=== PATIENT | male | born 1965 | race Caucasian/White ===

== ENCOUNTER 2017-04-16 07:39 | Emergency (ER) | payer OTHER ==
[~2017-04-16] VITALS: Ht 188 cm; Wt 67.0 kg
[2017-04-16 07:42] VITALS: TEMP 37.1; Ht 188 cm; Wt 67.0 kg
[2017-04-16] MEDS ORDERED: BLOOD PRESSURE PO (08:20)
[2017-04-16] MEDS ORDERED: THYROID PO (08:20)
[2017-04-16 08:25] LABS: BASO % 0.3 %; BASO ABS # 0.03 K/uL (0-0.2); EOS % 0.6 %; EOS ABS # 0.07 K/uL (0-0.5); HEMATOCRIT 45.1 % (42-52); HEMOGLOBIN 15.6 g/dL (14.0-18.0); IG# 0.02 K/uL (0.00-0.02); LYMPH % 16.5 %; LYMPH ABS # 1.79 K/uL (1.2-3.4); MEAN CELL VOLUME 100.2 fL (80-100); MEAN CORPUSCULAR HEMOGLOBIN 34.7 pg (25-34); MEAN CORPUSCULAR HGB CONC 34.6 g/dl (32-36); MEAN PLATELET VOLUME 9.9 fL (7.4-10.4); MONO % 10.4 %; MONO ABS # 1.13 K/uL (0.11-0.59); NEUT ABS # 7.83 K/uL (1.4-6.5); PLATELET COUNT 258 K/uL (130-400); RED CELL DISTRIBUTION WIDTH CV 13.1 % (11.5-14.5); RED CELL DISTRIBUTION WIDTH SD 47.7 fL (36.4-46.3); WHITE BLOOD COUNT 10.87 K/uL (4.8-10.8)
[2017-04-16 08:42] LABS: CALCIUM 9.2 mg/dl (8.5-10.1); CREATININE 0.86 mg/dl (0.60-1.40); POTASSIUM 4.2 mmol/L (3.5-5.1); URIC ACID 7.5 mg/dl (2.6-7.2)
--- NOTE | 2017-04-16 08:56 | DIAGNOSTIC IMAGING REPORT ---
L ELBOW MIN 3 VIEWS ROUTINE CLINICAL HISTORY: Left elbow pain with limited range of motion. No known trauma. COMPARISON: None FINDINGS: Alignment of the left elbow is anatomic. No acute fracture is identified. Note is made of a well-corticated 1.8 cm ossicle along the medial aspect of the ulnotrochlear articulation. A few well-corticated ossicles along the lateral condyle measure up to 9 mm. There is no suspicious osseous lesion. The anterior fat pad is prominent and the posterior fat pad is visualized. This suggests a left elbow joint effusion. IMPRESSION: 1. No acute fracture. 2. Suspected left elbow joint effusion. 3. Well-corticated ossicles along the medial and lateral condyles which suggest old injury. Electronically signed by: Juliocesar Ríos M.D. 04/16/2017 8:55 AM Dictated Date/Time: 04/16/2017 8:52 AM
[2017-04-16] MEDS ORDERED: PRED50TA PO (10:10)
[2017-04-16] MEDS ORDERED: CEPH500C PO (10:10)
[2017-04-16 10:15] VITALS: BP 133/72; PULSE 72; O2SAT 100
--- NOTE | 2017-04-16 10:18 | EMERGENCY ROOM VISIT NOTE ---
ED Visit Note First contact with patient: 07:43 The patient was seen and examined with Gerald Dennis PA-c. I agree with the history, physical and findings. Please see the note for disposition and details.
--- NOTE | 2017-04-16 17:22 | EMERGENCY ROOM VISIT NOTE ---
History First contact with patient: 07:43 Chief Complaint: ELBOW PAIN/INJURY Stated Complaint: PAIN IN ELBOW History of Present Illness The patient is a 51 year old male who presents to the Emergency Room with complaints of approximately 24 hours of increasing left elbow pain and limited range of motion. The patient reports that he noticed discomfort and stiffness yesterday morning upon awakening. He thought that he slept wrong on his elbow. The patient reports that the pain and limited range of motion have progressively worsened. The patient denies any recent injury to the elbow. He does report a history of left elbow dislocation approximately 40 years ago, but has had no history of chronic pain or weakness of the elbow. He denies any recent infection, fevers or chills. He denies any prior history of gout. He denies any pain extending into the upper or lower arm. He denies any paresthesias or numbness. The patient is [id number], and currently rates his discomfort a 5 out of 10. The patient is [id number]. Review of Systems HEENT: Denies dizziness, visual problems, hearing loss, tinnitus. Denies difficulty swallowing or oral lesions. PULMONARY: Denies cough, shortness of breath, sputum production or hemoptysis. CARDIOVASCULAR: Denies chest pain, palpitations, dyspnea on exertion, orthopnea or peripheral edema. GASTROINTESTINAL: Denies diarrhea, constipation, nausea, vomiting, or abdominal pain. GENITOURINARY: Denies dysuria, frequency, urgency or nocturia. NEUROLOGIC: Denies history of epilepsy, CVA, TIA or chronic headaches. MUSCULOSKELETAL: Denies history of joint tenderness/swelling. SKIN: Denies rashes or lesions. PSYCHIATRIC: Denies history of depression or mental illness. ENDOCRINE: Denies history of diabetes or thyroid disorders. Past Medical/Surgical History Medical Problems: (1) Diaphragmatic Hernia (2) Esophagitis Nos (3) Tobacco Use Disorder Family History Unremarkable Social History Smoking Status: Current Every Day Smoker Alcohol Use: none Marital Status: single Occupation Status: employed Current/Historical Medications Scheduled Cephalexin Monohydrate (Keflex), 500 MG PO QID Prednisone (Prednisone), 50 MG PO DAILY [Blood Pressure], 1 TAB PO DAILY [Thyroid], 1 TAB PO DAILY Physical Exam Vital Signs Date Time Temp Pulse Resp B/P (MAP) Pulse Ox O2 Delivery O2 Flow Rate FiO2 04/16/17 10:15 72 18 133/72 100 04/16/17 09:00 73 18 137/75 99 Room Air 04/16/17 07:42 37.1 92 18 161/84 97 Room Air Physical Exam CONSTITUTIONAL: Healthy and well nourished. Alert and oriented X 3 with positive affect. Patient does not appear in any acute distress. HEENT: Normocephalic, atraumatic. Pupils equal, round and reactive. NECK: Full active range of motion without discomfort. RESPIRATORY: Clear to auscultation bilaterally with no wheezing, crackles, rhonchi or stridor. CARDIOVASCULAR: Regular rate and rhythm with no murmurs, rubs or gallops. GASTROINTESTINAL: Bowel sounds present in all quadrants. Soft and nontender to palpation. MUSCULOSKELETAL: Examination of the left elbow shows limited range of motion. A mild joint effusion is noted. There is no overriding erythema or increased warmth to palpation. Distal pulses are intact. INTEGUMENTARY: No rash or other significant dermatologic conditions noted. NEUROLOGIC: No focal neurologic deficits noted. Left hand and fingers are sensory intact. Medical Decision & Procedures ER Provider Diagnostic Interpretation: My interpretation of left elbow x-ray shows a joint effusion, otherwise no other acute fractures, dislocation or other concerning lesions. Chronic changes are noted. Radiologist report is as follows: L ELBOW MIN 3 VIEWS ROUTINE CLINICAL HISTORY: Left elbow pain with limited range of motion. No known trauma. COMPARISON: None FINDINGS: Alignment of the left elbow is anatomic. No acute fracture is identified. Note is made of a well-corticated 1.8 cm ossicle along the medial aspect of the ulnotrochlear articulation. A few well-corticated ossicles along the lateral condyle measure up to 9 mm. There is no suspicious osseous lesion. The anterior fat pad is prominent and the posterior fat pad is visualized. This suggests a left elbow joint effusion. IMPRESSION: 1. No acute fracture. 2. Suspected left elbow joint effusion. 3. Well-corticated ossicles along the medial and lateral condyles which suggest old injury. Laboratory Results 04/16/17 08:10 Red Blood Count 4.50, Mean Corpuscular Volume 100.2, Mean Corpuscular Hemoglobin 34.7, Mean Corpuscular Hemoglobin Concent 34.6, Mean Platelet Volume 9.9, Neutrophils (%) (Auto) 72.0, Lymphocytes (%) (Auto) 16.5, Monocytes (%) ( Auto) 10.4, Eosinophils (%) (Auto) 0.6, Basophils (%) (Auto) 0.3, Neutrophils # (Auto) 7.83, Lymphocytes # (Auto) 1.79, Monocytes # (Auto) 1.13, Eosinophils # ( Auto) 0.07, Basophils # (Auto) 0.03 04/16/17 08:10 Test 04/16/17 08:10 04/16/17 08:12 White Blood Count 10.87 K/uL (4.8-10.8) Red Blood Count 4.50 M/uL (4.7-6.1) Hemoglobin 15.6 g/dL (14.0-18.0) Hematocrit 45.1 % (42-52) Mean Corpuscular Volume 100.2 fL (80-100) Mean Corpuscular Hemoglobin 34.7 pg (25-34) Mean Corpuscular Hemoglobin Concent 34.6 g/dl (32-36) Platelet Count 258 K/uL (130-400) Mean Platelet Volume 9.9 fL (7.4-10.4) Neutrophils (%) (Auto) 72.0 % Lymphocytes (%) (Auto) 16.5 % Monocytes (%) (Auto) 10.4 % Eosinophils (%) (Auto) 0.6 % Basophils (%) (Auto) 0.3 % Neutrophils # (Auto) 7.83 K/uL (1.4-6.5) Lymphocytes # (Auto) 1.79 K/uL (1.2-3.4) Monocytes # (Auto) 1.13 K/uL (0.11-0.59) Eosinophils # (Auto) 0.07 K/uL (0-0.5) Basophils # (Auto) 0.03 K/uL (0-0.2) RDW Standard Deviation 47.7 fL (36.4-46.3) RDW Coefficient of Variation 13.1 % (11.5-14.5) Immature Granulocyte % (Auto) 0.2 % Immature Granulocyte # (Auto) 0.02 K/uL (0.00-0.02) Erythrocyte Sedimentation Rate 16 mm/hr (0-14) Anion Gap 8.0 mmol/L (3-11) Est Creatinine Clear Calc Drug Dose 95.2 ml/min Estimated GFR () 115.6 Estimated GFR (Non- 99.7 BUN/Creatinine Ratio 8.9 (10-20) Uric Acid 7.5 mg/dl (2.6-7.2) Calcium Level 9.2 mg/dl (8.5-10.1) C-Reactive Protein 1.57 mg/dl (0-0.29) Lyme Disease IgG Antibody NEG (NEG) Lyme Disease IgM Antibody NEG (NEG) Bedside Lactic Acid Venous 0.82 mmol/L (0.90-1.70) The above labs were reviewed. Sedimentation rate, CRP and uric acid level are elevated. Patient also has a mildly elevated white count. Lyme screen is negative. ED Course Patient history and physical exam were performed. Nurse's notes were reviewed. Vital signs were reviewed and were normal. Several different differentials were discussed with the patient, including labs arthritis, gout, septic arthritis, joint derangement or other acute processes. I did suggest performing some lab work and imaging studies. The patient was in agreement, but quite impatient. IV access was established, and labs were drawn. Review of labs shows an elevated CRP, sedimentation rate and uric acid level, concerning for acute gout. White count is also mildly elevated, concerning for possible infection. It is again noted that there is no overriding erythema or increased warmth to palpation of the elbow. X-rays shows degenerative changes without any obvious fractures or dislocation. The case was discussed further with Dr. Mesa, ED attending physician, who also evaluated the patient, and suggested coverage with corticosteroids and antibiotics. The patient was provided prescriptions for prednisone and Keflex. The patient was instructed to follow-up with orthopedics for further reevaluation and management. The patient reported that he will call orthopedics for an appointment after refusing assistance today to establish an appointment. He was instructed to return for any progressively worsening pain, developing fever or other concerning symptoms. He was encouraged to alternate ibuprofen and Tylenol as needed for pain relief. The patient voiced understanding of all discharge instructions, was happy with plan of care, and rated his discomfort a 4 out of 10 at the conclusion of my exam. Medical Decision See previous section Medication Reconcilliation Current Medication List: was personally reviewed by me Blood Pressure Screening Patient's blood pressure: Normal blood pressure Impression Primary Impression: Effusion, left elbow Departure Information Prescriptions Prednisone (Prednisone) 50 Mg Tab 50 MG PO DAILY for 4 Days, #4 TAB Prov: Gerald Dennis PA 04/16/17 Cephalexin Monohydrate (Keflex) 500 Mg Cap 500 MG PO QID for 7 Days, #28 CAP Prov: Gerald Dennis PA 04/16/17 Referrals No Doctor, Assigned (PCP) Patient Instructions [facility]
== END 2017-04-16 10:09 | disposition home or self-care (01) ==
LOC: C.EDB 07:41 → C.EDA 10:09
DX: M25.422 Effusion, left elbow (principal); Z79.899 Other long term (current) drug therapy; Z87.19 Personal history of other diseases of the digestive system; Z87.828 Personal history of other (healed) physical injury and trauma; F17.200 Nicotine dependence, unspecified, uncomplicated

== ENCOUNTER 2021-12-21 09:12 | Inpatient (IN) ==
[2021-12-21 10:04] LABS: Basophils # (auto) 0.07 K/uL (0-0.2); Eosinophils # (auto) 0.04 K/uL (0-0.50); Eosinophils % (auto) 0.5 %; Hematocrit (blood only) 34.5 % (40.1-51.0); Immature Granulocytes # (auto) 0.03 K/uL (0.00-0.02); Immature Granulocytes % (auto) 0.4 %; Lymphocytes % (auto) 15.1 %; Mean Corpuscular Hgb Conc 34.8 g/dL (32.0-36.0); Mean Corpuscular Volume 97.7 fL (80.0-100.0); Mean Platelet Volume 10.2 fL (9.4-12.4); Monocytes # (auto) 0.96 K/uL (0.24-0.82); Monocytes % (auto) 13.2 %; Neutrophils % (auto) 69.8 %; Platelet Count 255 K/uL (130-400); RDW Coefficient of Variation 12.2 % (11.5-14.5); RDW Standard Deviation 43.5 fL (36.4-46.3); Red Blood Count 3.53 M/uL (4.63-6.08)
--- NOTE | 2021-12-21 10:24 | Emergency Department Note ---
Impression & Plan Cellulitis of right lower extremity ED Provider Note CHIEF COMPLAINT: Right foot/ankle/knee pain HISTORY OF PRESENT ILLNESS: Wiley Reyes is a 56 year old male with history of HTN, hypothyroidism, OA and tobacco use who presents to the Emergency Department for evaluation of increased pain with redness and swelling to his right foot radiating into his ankle and farr which has become progressively worse over the past 4 days. He also notes pain in his posterior right knee which worsens with flexion. Currently, he rates his discomfort as an 8/10. He has not attempted to take any medications for his discomfort. The patient denies suffering recent falls or injuries prior to the onset of his symptoms. No known wounds or insect bites. The patient does also note development of a petechial rash to his bilateral thighs a few weeks ago. No pain or itchiness. No rash anywhere else about his body. No other joint pain, redness/swelling. No numbness/tingling. He otherwise denies recent fevers/chills, sore throat, cough, chest pain, respiratory difficulties, abdominal pain, nausea, vomiting, diarrhea or urinary symptoms. The patient does note previous history of an "elbow infection" for which he was treated with oral antibiotics several years ago. No history of blood clots/clotting disorders. No use of AC/APs. No other acute complaints. REVIEW OF SYSTEMS: 10 systems were reviewed and were negative unless otherwise stated in HPI as above PHYSICAL EXAM: VITALS: Vitals are noted on the nurse's note and reviewed by myself. Mildly tachycardic, additional vital signs stable. General: Resting in bed, no acute distress HEENT: Normocephalic, atraumatic, PERRL, EOMI, poor dentition with several missing teeth/caries, mucous membranes moist, oropharynx clear Neck: Supple, non-tender Resp: Good inspiratory effort on room air, lung sounds clear bilaterally CV: Regular rate and rhythm, normal S1-S2, peripheral pulses palpated Abd: Soft, non-tender MSK/Integumentary: Nonblanchable petechial rash to the bilateral thighs. Erythema and edema to the right medial and lateral foot extending into the bilateral ankle and farr, warm and tender to palpation. Not able to palpate d/p pulse, p/t pulse palpated. Sensation intact. Able to move the toes and ankle, though notes pain. Tender to palpation over the right popliteal space and notes exacerbation of pain with flexion of the knee. No specific tenderness to palpation over the right hip or thigh. No other appreciable wounds, moving all other extremities without significant pain or difficulty Neuro: Awake, alert and oriented x 3, interacting and answering questions appropriately Differential diagnosis includes cellulitis, abscess, MRSA infection, DVT, necrotizing fasciitis, dermatitis, drug eruption, allergic reaction, as well as other pathologies. EMERGENCY DEPARTMENT COURSE: Physical exam and history were performed. Nursing triage notes, EMR, and medication list were personally reviewed. Patient appears to have increased pain with redness and swelling to his right foot radiating into his ankle and farr which has become progressively worse over the past 4 days. He also notes pain in his posterior right knee which worsens with flexion. Additional history as described above. See physical exam as noted above. The patient was offered pain medication on multiple occasions but declined. IV access was established. Labs were obtained and reviewed by myself as below. Of note, no concern for leukocytosis with a WBC of 7.30. Anemia with hemoglobin 12.0. Mild hyponatremia with a sodium of 131, additional electrolytes WNL. Renal indices stable. LFTs WNL. ESR was elevated at 59, CRP was elevated at 10.21 and lactate was elevated at 2.6. Procalcitonin not elevated at 0.10. Given the patient's elevated lactate, he was started on 1 L NSS. Continue to decline pain medication. Artery duplex and venous Doppler scans of the right lower extremity were obtained, reviewed by radiologist myself as below. Imaging did represent peripheral artery disease, otherwise no occlusions or DVT. X-rays of the right knee and right ankle were also obtained, reviewed by radiologist myself as below. Images did show soft tissue swelling and a small right knee joint effusion, otherwise no acute osseous abnormality. Upon reevaluation, the patient was doing well. I discussed the results the above findings with him at bedside. Given his exam findings and elevated inflammatory markers as well as his elevated lactate, I do feel that he will benefit from continued monitoring in the hospital for IV antibiotics given his right lower extremity cellulitis. He was started on daptomycin and Zosyn. I did call and speak with Ashley Scott PA-C of the [facility] hospitalist group. She did agreed to evaluate the patient with Dr. Pulido for ongoing management. Please see their documentation for additional plan and disposition thereafter. The patient verbalized his understanding and agreement with the treatment plan as above. The chart was completed utilizing [employer] Voice Recognition Software. Grammatical errors, random word insertions, pronoun errors, and incomplete sentences are an occasional consequence of this system due to software limitations, ambient noise, and hardware issues. Any formal questions or concerns about the content, text, or information contained within the body of this dictation should be directly addressed to the provider for clarification. Past Med/Surg History Medical History (Updated 12/21/21 @ 15:50 by Celi Garland PA-C) Alcohol use HTN (hypertension) Hypothyroidism Left inguinal hernia Osteoarthritis Tobacco use Vitamin D deficiency Surgical History (Updated 12/21/21 @ 14:03 by Cony Scott PA-C) H/O left inguinal hernia repair History of tooth extraction S/P left inguinal hernia repair Family History (Updated 12/21/21 @ 14:03 by Cony Scott PA-C) Father Myocardial infarction Coronary heart disease Mother No problems noted. Sister No problems noted. Grandmother (Maternal) Diabetes Social History (Updated 12/21/21 @ 14:05 by Cony Scott PA-C) Smoking Status: Current every day smoker Cigarettes Per Day: 3-4 CIG DAILY; Second Hand Exposure: No; Hx Alcohol Use: Yes (3 beers daily) Alcohol type: beer Hx Substance Use: No Preferred Language: German Communication Ability: Effective Sales Support Technician Required: No Beliefs That Will Affect Care: None Current Living Situation: Alone Feels Safe at Home: Yes Assistive Devices: None Allergies Allergies Allergy/AdvReac Type Severity Reaction Status Date / Time No Known Allergies Allergy Verified 12/21/21 13:04 Home Meds Home Medications Medication Instructions Recorded Confirmed levothyroxine 50 mcg tablet 50 mcg PO QAM 11/27/17 12/21/21 losartan 25 mg tablet 25 mg PO HS 11/27/17 12/21/21 Results & Data (ED) Vital Signs Vital Signs - 24 hr 12/21/21 09:22 12/21/21 13:48 Temperature 36.3 C L Temperature Source Temporal Artery Scan Pulse Rate 110 H Respiratory Rate 20 14 Respiratory Effort / Characteristics Non-Labored Spontaneous Non-Labored Respiratory Depth Normal Normal Respiratory Pattern Regular Blood Pressure 134/82 Blood Pressure [Right Arm] 144/74 H Blood Pressure Mean 99 Blood Pressure Mean [Right Arm] 97 Pulse Oximetry 100 94 Oxygen Delivery Method Room Air Room Air Sepsis Recent Fever Within 48 Hours No Sepsis New/Unexplained Change in Mental Status No Sepsis Action Taken by Nursing No Action Required Laboratory Data Result diagrams: 12/21/21 09:50 12/21/21 09:50 Lab Results 12/21/21 12/21/21 12/21/21 Range/Units 09:50 09:50 09:50 WBC 7.30 (4.8-10.8) K/ul RBC 3.53 L (4.63-6.08) M/uL Hgb 12.0 L (14.0-18.0) g/dl Hct 34.5 L (40.1-51.0) % MCV 97.7 (80.0-100.0) fL MCH 34.0 (25.0-34.0) pg MCHC 34.8 (32.0-36.0) g/dL RDW Std Deviation 43.5 (36.4-46.3) fL RDW Coeff of Cordell 12.2 (11.5-14.5) % Plt Count 255 (130-400) K/uL MPV 10.2 (9.4-12.4) fL Immature Gran % (Auto) 0.4 % Neut % (Auto) 69.8 % Lymph % (Auto) 15.1 % [place] % (Auto) 13.2 % Eos % (Auto) 0.5 % Baso % (Auto) 1.0 % Neut # (Auto) 5.10 (1.4-6.5) K/uL Lymph # (Auto) 1.10 L (1.2-3.4) K/uL [place] # (Auto) 0.96 H (0.24-0.82) K/uL Eos # (Auto) 0.04 (0-0.50) K/uL Baso # (Auto) 0.07 (0-0.2) K/uL Immature Gran # (Auto) 0.03 H (0.00-0.02) K/uL ESR 59 H (0-20) mm/hr Sodium 131 L (136-145) mmol/L Potassium 4.1 (3.5-5.1) mmol/L Chloride 100 (98-107) mmol/L Carbon Dioxide 20 L (21-32) mmol/L Anion Gap 11 (3-11) BUN 10 (6-23) mg/dl Creatinine 0.99 (0.6-1.4) mg/dl Est Cr Clr Drug Dosing 70.6 ml/min Est GFR ( Amer) 97.6 ml/min Est GFR (Non-Af Amer) 84.2 ml/min BUN/Creatinine Ratio 10.1 (10-20) Glucose 118 H (70-99(Fasting)) mg/dl Lactate (0.4-2.0) mmol/L Calcium 9.4 (8.5-10.1) mg/dl Total Bilirubin 2.0 H (0.2-1.0) mg/dl AST 22 (13-39) U/L ALT 11 (7-52) U/L Alkaline Phosphatase 56 (34-104) U/L C-Reactive Protein 10.21 H (0-0.5) mg/dl Total Protein 7.8 (6.0-8.3) gm/dl Albumin 3.5 (3.4-5.0) gm/dl Globulin 4.3 H (2.5-4.0) gm/dl Albumin/Globulin Ratio 0.8 L (0.9-2) Procalcitonin (0-0.5) ng/ml SARS-CoV-2, RNA, NAAT (NEGATIVE) 12/21/21 12/21/21 12/21/21 Range/Units 09:50 09:50 13:42 WBC (4.8-10.8) K/ul RBC (4.63-6.08) M/uL Hgb (14.0-18.0) g/dl Hct (40.1-51.0) % MCV (80.0-100.0) fL MCH (25.0-34.0) pg MCHC (32.0-36.0) g/dL RDW Std Deviation (36.4-46.3) fL RDW Coeff of Cordell (11.5-14.5) % Plt Count (130-400) K/uL MPV (9.4-12.4) fL Immature Gran % (Auto) % Neut % (Auto) % Lymph % (Auto) % [place] % (Auto) % Eos % (Auto) % Baso % (Auto) % Neut # (Auto) (1.4-6.5) K/uL Lymph # (Auto) (1.2-3.4) K/uL [place] # (Auto) (0.24-0.82) K/uL Eos # (Auto) (0-0.50) K/uL Baso # (Auto) (0-0.2) K/uL Immature Gran # (Auto) (0.00-0.02) K/uL ESR (0-20) mm/hr Sodium (136-145) mmol/L Potassium (3.5-5.1) mmol/L Chloride (98-107) mmol/L Carbon Dioxide (21-32) mmol/L Anion Gap (3-11) BUN (6-23) mg/dl Creatinine (0.6-1.4) mg/dl Est Cr Clr Drug Dosing ml/min Est GFR ( Amer) ml/min Est GFR (Non-Af Amer) ml/min BUN/Creatinine Ratio (10-20) Glucose (70-99(Fasting)) mg/dl Lactate 2.6 H* (0.4-2.0) mmol/L Calcium (8.5-10.1) mg/dl Total Bilirubin (0.2-1.0) mg/dl AST (13-39) U/L ALT (7-52) U/L Alkaline Phosphatase (34-104) U/L C-Reactive Protein (0-0.5) mg/dl Total Protein (6.0-8.3) gm/dl Albumin (3.4-5.0) gm/dl Globulin (2.5-4.0) gm/dl Albumin/Globulin Ratio (0.9-2) Procalcitonin 0.10 (0-0.5) ng/ml SARS-CoV-2, RNA, NAAT NEGATIVE (NEGATIVE) 12/21/21 Range/Units 14:38 WBC (4.8-10.8) K/ul RBC (4.63-6.08) M/uL Hgb (14.0-18.0) g/dl Hct (40.1-51.0) % MCV (80.0-100.0) fL MCH (25.0-34.0) pg MCHC (32.0-36.0) g/dL RDW Std Deviation (36.4-46.3) fL RDW Coeff of Cordell (11.5-14.5) % Plt Count (130-400) K/uL MPV (9.4-12.4) fL Immature Gran % (Auto) % Neut % (Auto) % Lymph % (Auto) % [place] % (Auto) % Eos % (Auto) % Baso % (Auto) % Neut # (Auto) (1.4-6.5) K/uL Lymph # (Auto) (1.2-3.4) K/uL [place] # (Auto) (0.24-0.82) K/uL Eos # (Auto) (0-0.50) K/uL Baso # (Auto) (0-0.2) K/uL Immature Gran # (Auto) (0.00-0.02) K/uL ESR (0-20) mm/hr Sodium (136-145) mmol/L Potassium (3.5-5.1) mmol/L Chloride (98-107) mmol/L Carbon Dioxide (21-32) mmol/L Anion Gap (3-11) BUN (6-23) mg/dl Creatinine (0.6-1.4) mg/dl Est Cr Clr Drug Dosing ml/min Est GFR ( Amer) ml/min Est GFR (Non-Af Amer) ml/min BUN/Creatinine Ratio (10-20) Glucose (70-99(Fasting)) mg/dl Lactate 1.1 (0.4-2.0) mmol/L Calcium (8.5-10.1) mg/dl Total Bilirubin (0.2-1.0) mg/dl AST (13-39) U/L ALT (7-52) U/L Alkaline Phosphatase (34-104) U/L C-Reactive Protein (0-0.5) mg/dl Total Protein (6.0-8.3) gm/dl Albumin (3.4-5.0) gm/dl Globulin (2.5-4.0) gm/dl Albumin/Globulin Ratio (0.9-2) Procalcitonin (0-0.5) ng/ml SARS-CoV-2, RNA, NAAT (NEGATIVE) Administered Medications Daptomycin 350 mg/ Syringe 7 mls @ 3.5 mls/min IV Q24H GAIL; Protocol Stop: 12/23/21 12:44 Last Admin: 12/21/21 13:21 Dose: 3.5 mls/min Documented By: GRIFFIN Discontinued Medications Sodium Chloride (Nss 1000ml) 1,000 mls @ 999 mls/hr IV .Q1H1M GAIL Stop: 12/21/21 12:29 Last Infusion: 12/21/21 13:21 Dose: 0 mls/hr Documented By: Admin: 12/21/21 12:14 Dose: 999 mls/hr Documented By: GRIFFIN Piperacillin Sod/Tazobactam Sod (Zosyn) 4.5 gm in 120 mls @ 240 mls/hr IV NOW ONE Stop: 12/21/21 13:02 Last Infusion: 12/21/21 13:21 Dose: 0 mls/hr Documented By: Admin: 12/21/21 13:00 Dose: 240 mls/hr Documented By: GRIFFIN Imaging Data Radiologist's Impression: Venous Doppler Study 12/21/21 09:40 RIGHT LOWER EXTREMITY VENOUS DOPPLER CLINICAL HISTORY: Right lower extremity pain. COMPARISON STUDY: No previous studies for comparison. TECHNIQUE: Sonography of the deep venous system of the right lower extremity was performed. Compression and augmentation were evaluated. FINDINGS: The right common femoral, superficial femoral and popliteal veins were compressible. Augmentation was normal. Flow was shown within the deep calf vessels. IMPRESSION: No evidence of deep venous thrombus within the right lower extremity. ACT 112: Negative or not required by law. Electronically signed by: Juliocesar Ríos M.D. 12/21/2021 11:33 AM Duplex Scan Lower Extremity Artery 12/21/21 10:06 US arterial duplex LE RT CLINICAL HISTORY: rash, redness/swelling TECHNIQUE: Real-time grayscale and color and spectral Doppler ultrasound imaging of the bilateral lower extremity arteries was performed. Measurements calculated based on NASCET criteria. COMPARISON: None available at the time of this dictation. FINDINGS: RIGHT: Common femoral artery: Triphasic waveforms. Peak systolic velocity (PSV) 157 cm/ s. Deep femoral artery: Monophasic waveforms. PSV 127 cm/s. Superficial femoral artery: Monophasic waveforms. PSV 204 cm/s. Popliteal artery: Monophasic and triphasic waveforms PSV 142 cm/s. Anterior tibial artery: Monophasic waveforms. PSV 85 cm/s. Posterior tibial artery: Monophasic waveforms. PSV 116 cm/s. Peroneal artery: Monophasic waveforms. PSV 108 cm/s. Dorsalis pedis: Monophasic and biphasic waveforms PSV 41 cm/s. IMPRESSION: Monophasic but brisk waveforms in the lower extremity without significantly elevated or diminished velocities. Findings may represent mild peripheral arterial disease. ACT 112: Negative or not required by law. Electronically signed by: Jacinto Rick M.D. 12/21/2021 11:36 AM Ankle X-Ray 12/21/21 10:07 XR ankle RT min 3V routine HISTORY: 56 years-old Male pain, redness/swelling, r/o osteo acute pain and swelling of the right ankle COMPARISON: None TECHNIQUE: 3 views of the right ankle FINDINGS: Mildly demineralized appearance the bones. Mild to moderate circumferential soft tissue swelling. No acute fracture, dislocation, osseous erosion or osteochondral defect. Mild osteoarthritis of the ankle. IMPRESSION: Soft tissue swelling without acute osseous abnormality. ACT 112: Negative or not required by law. The above report was generated using voice recognition software. It may contain grammatical, syntax or spelling errors. Electronically signed by: Daniel Fontanez M.D. 12/21/2021 11:45 AM Knee X-Ray 12/21/21 10:07 XR knee RT 3V CLINICAL HISTORY: Right knee pain. COMPARISON: None FINDINGS: Alignment of the right knee is anatomic. There is no acute fracture. A 2.5 cm bony excrescence arising from the medial proximal shaft of the right fibula has benign imaging characteristics. There is a trace joint effusion. Joint spaces are preserved. Mild knee soft tissue swelling is present. IMPRESSION: 1. No acute fracture. 2. Trace joint effusion. ACT 112: Negative or not required by law. Electronically signed by: Juliocesar Ríos M.D. 12/21/2021 11:37 AM Discharge Plan Visit Data Chief Complaint: Knee Injury/Pain Stated Complaint: Can't bend r knee, r foot swollen and painful ED Provider: [facility] Midlevel Provider: Celi Garland Discharge Problem: Cellulitis of right lower extremity Patient Disposition: Admitted As Inpatient Forms Stand Alone Forms: [facility] Prescriptions Prescriptions: No Action levothyroxine 50 mcg Tablet 50 mcg PO QAM losartan 25 mg Tablet 25 mg PO HS Referrals Referrals: Navid Bales DO [Physician] -
[2021-12-21 10:26] LABS: Albumin Globulin Ratio 0.8 (0.9-2); Albumin Level 3.5 gm/dl (3.4-5.0); BUN Creatinine Ratio 10.1 (10-20); C Reactive Protein 10.21 mg/dl (0-0.5); Calcium 9.4 mg/dl (8.5-10.1); Creatinine Clr Calc Pharmacy 70.6 ml/min; Est GFR (African American) 97.6 ml/min; Est GFR (Non-African American) 84.2 ml/min; Globulin 4.3 gm/dl (2.5-4.0); Potassium 4.1 mmol/L (3.5-5.1); Total Protein 7.8 gm/dl (6.0-8.3)
[2021-12-21] MEDS ORDERED: SODIUM CHLORIDE 0.9% 1000ML 1,000 ML IV SCH ×2 (11:29→17:57)
--- NOTE | 2021-12-21 11:35 | Ultrasound Report ---
RIGHT LOWER EXTREMITY VENOUS DOPPLER CLINICAL HISTORY: Right lower extremity pain. COMPARISON STUDY: No previous studies for comparison. TECHNIQUE: Sonography of the deep venous system of the right lower extremity was performed. Compress ion and augmentation were evaluated. FINDINGS: The right common femoral, superficial femoral and popliteal veins were compressible. Augme ntation was normal. Flow was shown within the deep calf vessels. IMPRESSION: No evidence of deep venous thrombus within the right lower extremity. ACT 112: Negative or not required by law. Electronically signed by: Juliocesar Ríos M.D. 12/21/2021 11:33 AM
--- NOTE | 2021-12-21 11:37 | Ultrasound Report ---
US arterial duplex LE RT CLINICAL HISTORY: rash, redness/swelling TECHNIQUE: Real-time grayscale and color and spectral Doppler ultrasound imaging of the bilateral low er extremity arteries was performed. Measurements calculated based on NASCET criteria. COMPARISON: None available at the time of this dictation. FINDINGS: RIGHT: Common femoral artery: Triphasic waveforms. Peak systolic velocity (PSV) 157 cm/s. Deep femoral artery: Monophasic waveforms. PSV 127 cm/s. Superficial femoral artery: Monophasic waveforms. PSV 204 cm/s. Popliteal artery: Monophasic and triphasic waveforms PSV 142 cm/s. Anterior tibial artery: Monophasic waveforms. PSV 85 cm/s. Posterior tibial artery: Monophasic waveforms. PSV 116 cm/s. Peroneal artery: Monophasic waveforms. PSV 108 cm/s. Dorsalis pedis: Monophasic and biphasic waveforms PSV 41 cm/s. IMPRESSION: Monophasic but brisk waveforms in the lower extremity without significantly elevated or diminished ve locities. Findings may represent mild peripheral arterial disease. ACT 112: Negative or not required by law. Electronically signed by: Jacinto Rick M.D. 12/21/2021 11:36 AM
--- NOTE | 2021-12-21 11:39 | XRay Report ---
XR knee RT 3V CLINICAL HISTORY: Right knee pain. COMPARISON: None FINDINGS: Alignment of the right knee is anatomic. There is no acute fracture. A 2.5 cm bony excresc ence arising from the medial proximal shaft of the right fibula has benign imaging characteristics. T here is a trace joint effusion. Joint spaces are preserved. Mild knee soft tissue swelling is present . IMPRESSION: 1. No acute fracture. 2. Trace joint effusion. ACT 112: Negative or not required by law. Electronically signed by: Juliocesar Ríos M.D. 12/21/2021 11:37 AM
--- NOTE | 2021-12-21 11:46 | XRay Report ---
XR ankle RT min 3V routine HISTORY: 56 years-old Male pain, redness/swelling, r/o osteo acute pain and swelling of the right an kle COMPARISON: None TECHNIQUE: 3 views of the right ankle FINDINGS: Mildly demineralized appearance the bones. Mild to moderate circumferential soft tissue swelling. No acute fracture, dislocation, osseous erosion or osteochondral defect. Mild osteoarthritis of the ankl e. IMPRESSION: Soft tissue swelling without acute osseous abnormality. ACT 112: Negative or not required by law. The above report was generated using voice recognition software. It may contain grammatical, syntax o r spelling errors. Electronically signed by: Daniel Fontanez M.D. 12/21/2021 11:45 AM
[2021-12-21] MEDS ORDERED: PIPERACILLIN/TAZOBACTAM 4.5 GM/120 ML BAG IV ONE (12:33)
[2021-12-21] MEDS ORDERED: DAPTOmycin 350 MG in SYRINGE 0 ML IV SCH (12:45)
--- NOTE | 2021-12-21 13:16 | History & Physical Report ---
Date of Service December 21, 2021 Assessment & Plan (1) Cellulitis of foot, right: Plan: Patient is 56 y/o M with PMH HTN, hypothyroidism presented to ER with c/o right foot erythema x 3 days followed by worsening erythema, edema and tenderness. Denies fever/chills, known injury/trauma. In ER patient afebrile, initially P: 110, BP: 134/82, R: 20, 100% on RA. No leukocytosis. Initial lactate: 2.6, procalcitonin: 0.10, CRP: 10, ESR: 59 Right ankle x-ray: Soft tissue swelling without acute osseous abnormal RLE Venous Doppler: No evidence of DVT RLE Arterial Doppler: Monophasic but brisk waveforms in the lower extremity without significantly elevated or diminished velocities. Findings may represent mild peripheral arterial disease In ER given 1L NSS, Zosyn, Daptomycin Blood cultures pending Repeat lactate pending Repeat vitals after IVF with HR in 80's, SBP 144 Continue Zosyn and daptomycin Gentle IVF CBC, CMP in am (2) Rash: Plan: Rash reported anterior thighs for 1 week, non tender, nonpruritic Plt WNL Appears petechial like rash Picture taken in [place] Text and sent to Dr Tillman, [facility] dermatology who will assist in further recommendations (3) Anemia: Plan: Hgb: 12. Was 13.6 in 09/2020. normocytic, normochromic Anemia labs pending (4) HTN (hypertension): Plan: Stable Continue losartan (5) Hypothyroidism: Plan: Continue levothyroxine (6) Alcohol use: Plan: Drinks 3 beers daily. Denies history withdrawal Monitor for withdrawal symptoms Start folic acid, thiamine, multivitamin (7) Low BMI: Plan: BMI: 16.7 Patient reports eats two meals a day Outpatient PCP noted reviewed from 08/14 and BMI 17.9 with weight of 63.5kg, height of 6'2". Pt offered nutrition referral but was not interested PSA in 08/[address] chest or colonoscopy noted in outpatient records Pt will need outpatient cancer screenings General Intern consult (8) Tobacco use: Plan: Denies nicotine patch Smoking cessation encouraged DVT Prophylaxis Lovenox SQ Full Code as per discussion with pt Follows with Dr Guido for routine care Pt was seen and care coordinated with Dr Pulido. See addendum History of Present Illness Chief Complaint: Right foot erythema Primary Care Provider: Te Guido MD Patient is 56 y/o M with PMH HTN, hypothyroidism presented to ER with c/o right foot erythema x 3 days. History obtained from patient and chart review. Patient states 3 days ago started with redness and pain to right medial foot and ankle that has since spread. States later noticed swelling to right ankle and foot. Having pain to right knee with flexion only. Denies any known injury or trauma. Denies any known scratches or open areas. No known h/o MRSA. He also reports noticed rash to bilateral thighs for past week or so that is not pruritic or painful. Denies other rashes, recent insect bites. Patient states has chronic cough from smoking but denies any increased cough. Denies fever/chills, diaphoresis, N/V/D/C, ARANGO, dizziness, syncope, vision changes, neck pain, CP, SOB, palpitations, sore throat, choking, otalgia, rhinorrhea, abdominal pain, paresthesias, weakness, extremity weakness, rashes, urinary symptoms, weight loss. No history diabetes. A1c: 5.1 n 07/2021. Allergies Allergy/AdvReac Type Severity Reaction Status Date / Time No Known Allergies Allergy Verified 12/21/21 13:04 Home Medications Medication Instructions Recorded Confirmed Type levothyroxine 50 mcg tablet 50 mcg PO QAM 11/27/17 12/21/21 History losartan 25 mg tablet 25 mg PO HS 11/27/17 12/21/21 History Past Med/Surg History Medical History (Updated 12/21/21 @ 14:53 by Cony Scott PA-C) Alcohol use HTN (hypertension) Hypothyroidism Left inguinal hernia Osteoarthritis Tobacco use Vitamin D deficiency Surgical History (Updated 12/21/21 @ 14:03 by Cony Scott PA-C) H/O left inguinal hernia repair History of tooth extraction S/P left inguinal hernia repair Family History (Updated 12/21/21 @ 14:03 by Cony Scott PA-C) Father Myocardial infarction Coronary heart disease Mother No problems noted. Sister No problems noted. Grandmother (Maternal) Diabetes Social History (Updated 12/21/21 @ 14:05 by Cony Scott PA-C) Smoking Status: Current every day smoker Cigarettes Per Day: 3-4 CIG DAILY; Second Hand Exposure: No; Hx Alcohol Use: Yes (3 beers daily) Alcohol type: beer Hx Substance Use: No Preferred Language: Mauritian Communication Ability: Effective Quality Tech Required: No Beliefs That Will Affect Care: None Current Living Situation: Alone Feels Safe at Home: Yes Assistive Devices: None Review of Systems Review of Systems: All systems reviewed & are unremarkable except as noted in HPI & below Physical Exam Physical Exam: General: no acute distress, thin male, appears older than stated age Head: normocephalic, atraumatic Eyes: conjunctiva non-injected, anicteric ENT: normal inspection external ears, nose, mucous membranes moist Neck: supple, trachea midline Lungs: clear, no respiratory distress, no wheezing/rhonchi/rales CV: RRR, no murmur, no pretibial edema LLE Abd: normal BS, soft, non-tender Ext:no calf tenderness, RLE: +erythema, warmth and tenderness to palpation proximal medial, lateral and posterior foot and ankle, +lower leg extending to f oot. distal pulses difficult to palpate, sensation to light touch intact Neuro: A&O x 3, no focal deficits noted, flat affect Skin: warm, dry, +purple/red round spots that are non-blanching to anterior thighs bilaterally; RLE as above Results & Data Results & Data ([facility]) Vital Signs (Past 12 Hours) Vital Signs Temp Pulse Resp BP Pulse Ox O2 Del Method 12/21/21 09:22 36.3 C L 110 H 20 134/82 100 Room Air Laboratory Results Short CBC 12/21/21 Range/Units 09:50 WBC 7.30 (4.8-10.8) K/ul Hgb 12.0 L (14.0-18.0) g/dl Hct 34.5 L (40.1-51.0) % Plt Count 255 (130-400) K/uL BMP 12/21/21 09:50 Sodium 131 L Potassium 4.1 Chloride 100 Carbon Dioxide 20 L BUN 10 Creatinine 0.99 Glucose 118 H Calcium 9.4 Liver Function 12/21/21 Range/Units 09:50 Total Bilirubin 2.0 H (0.2-1.0) mg/dl AST 22 (13-39) U/L ALT 11 (7-52) U/L Alkaline Phosphatase 56 (34-104) U/L Albumin 3.5 (3.4-5.0) gm/dl Diagnostic Findings Venous Doppler Study 12/21/21 09:40 RIGHT LOWER EXTREMITY VENOUS DOPPLER CLINICAL HISTORY: Right lower extremity pain. COMPARISON STUDY: No previous studies for comparison. TECHNIQUE: Sonography of the deep venous system of the right lower extremity w as performed. Compression and augmentation were evaluated. FINDINGS: The right common femoral, superficial femoral and popliteal veins were compressible. Augmentation was normal. Flow was shown within the deep calf vessels. IMPRESSION: No evidence of deep venous thrombus within the right lower extremity. ACT 112: Negative or not required by law. Electronically signed by: Juliocesar Ríos M.D. 12/21/2021 11:33 AM Duplex Scan Lower Extremity Artery 12/21/21 10:06 US arterial duplex LE RT CLINICAL HISTORY: rash, redness/swelling TECHNIQUE: Real-time grayscale and color and spectral Doppler ultrasound imaging of the bilateral lower extremity arteries was performed. Measurements calculated based on NASCET criteria. COMPARISON: None available at the time of this dictation. FINDINGS: RIGHT: Common femoral artery: Triphasic waveforms. Peak systolic velocity (PSV) 157 cm/s. Deep femoral artery: Monophasic waveforms. PSV 127 cm/s. Superficial femoral artery: Monophasic waveforms. PSV 204 cm/s. Popliteal artery: Monophasic and triphasic waveforms PSV 142 cm/s. Anterior tibial artery: Monophasic waveforms. PSV 85 cm/s. Posterior tibial artery: Monophasic waveforms. PSV 116 cm/s. Peroneal artery: Monophasic waveforms. PSV 108 cm/s. Dorsalis pedis: Monophasic and biphasic waveforms PSV 41 cm/s. IMPRESSION: Monophasic but brisk waveforms in the lower extremity without significantly elevated or diminished velocities. Findings may represent mild peripheral arterial disease. ACT 112: Negative or not required by law. Electronically signed by: Jacinto Rick M.D. 12/21/2021 11:36 AM Ankle X-Ray 12/21/21 10:07 XR ankle RT min 3V routine HISTORY: 56 years-old Male pain, redness/swelling, r/o osteo acute pain and swelling of the right ankle COMPARISON: None TECHNIQUE: 3 views of the right ankle FINDINGS: Mildly demineralized appearance the bones. Mild to moderate circumferential soft tissue swelling. No acute fracture, dislocation, osseous erosion or osteochondral defect. Mild osteoarthritis of the ankle. IMPRESSION: Soft tissue swelling without acute osseous abnormality. ACT 112: Negative or not required by law. The above report was generated using voice recognition software. It may contain grammatical, syntax or spelling errors. Electronically signed by: Daniel Fontanez M.D. 12/21/2021 11:45 AM Knee X-Ray 12/21/21 10:07 XR knee RT 3V CLINICAL HISTORY: Right knee pain. COMPARISON: None FINDINGS: Alignment of the right knee is anatomic. There is no acute fracture. A 2.5 cm bony excrescence arising from the medial proximal shaft of the right fibula has benign imaging characteristics. There is a trace joint effusion. Joint spaces are preserved. Mild knee soft tissue swelling is present. IMPRESSION: 1. No acute fracture. 2. Trace joint effusion. ACT 112: Negative or not required by law. Electronically signed by: Juliocesar Ríos M.D. 12/21/2021 11:37 AM Code Status & VTE Plan VTE Prophylaxis Plan VTE Prophylaxis will be ordered: Yes Supervising Physician Co-Signing Physician Notes Pt seen and examined by me, care coordinated w/ [place]. VIBHA Scott, pls refer to her note above for further detail. Patient is a 56-year-old male, with history of hypertension hypothyroidism, anemia, BMI of 17, current tobacco use and reportedly occasional alcohol use, who presents with right ankle erythema and swelling, rash To both thighs, painful movement of right knee. He is alert oriented, answering simple questions appropriately, however does not provide much history. Reportedly pain and erythema started Sunday evening, later edema developed. Patient has pain with movement of his ankle and right knee. The rash is not bothersome to the patient, as it is not pruritic or painful. Patient was started on IV antibiotics and normal saline in the ED. ESR and CRP elevated, lactate mildly elevated, will order repeat now. T bili 2.0, will also repeat CMP. Continue Zosyn and daptomycin for now as started in the ED. Follow blood cultures. Contacted [facility] dermatology given the rash, awaiting a callback. MD Tess
[2021-12-21] MEDS ORDERED: ONDANSETRON INJ 2 MG/ML 2 ML VIAL IV PRN (17:57)
[2021-12-21] MEDS ORDERED: POLYETHYLENE (MIRALAX) 17 GM PACK PO PRN (17:57)
[2021-12-21] MEDS ORDERED: ACETAMINOPHEN 325 MG TAB PO PRN (17:57)
[2021-12-21] MEDS ORDERED: LORazepam 1 MG TAB PO PRN (17:57)
[2021-12-21] MEDS ORDERED: ENOXAPARIN INJ 40 MG/0.4 ML SYR SQ SCH (19:00)
[2021-12-21 19:23] LABS: Ferritin 430.1 ng/ml (8-388)
[2021-12-21] MEDS: PIPERACILLIN/TAZOBACTAM 3.375 GM in DEXTROSE 5% 100 ML IV SCH (19:51)
[2021-12-21] MEDS: THIAMINE HCL 100 MG TAB PO SCH (19:56)
[2021-12-21] MEDS: LOSARTAN POTASSIUM 50 MG TAB PO SCH (19:56)
[2021-12-21] MEDS: FOLIC ACID 1 MG TAB PO SCH (19:56)
[2021-12-22] MEDS: PIPERACILLIN/TAZOBACTAM 3.375 GM in DEXTROSE 5% 100 ML IV SCH ×3 (01:55→18:20)
[2021-12-22] MEDS: LEVOTHYROXINE SODIUM 75 MCG TABLET PO SCH (06:04)
[2021-12-22 07:49] LABS: Albumin Globulin Ratio 0.9 (0.9-2); Albumin Level 2.5 gm/dl (3.4-5.0); BUN Creatinine Ratio 8.8 (10-20); Bilirubin,Total 1.6 mg/dl (0.2-1.0); Creatinine Clr Calc Pharmacy 78.4 ml/min; Est GFR (African American) 94.1 ml/min; Est GFR (Non-African American) 81.2 ml/min; Globulin 2.9 gm/dl (2.5-4.0); Potassium 3.8 mmol/L (3.5-5.1); Total Protein 5.4 gm/dl (6.0-8.3)
[2021-12-22 07:50] LABS: Hematocrit (blood only) 23.7 % (40.1-51.0); Hemoglobin 8.1 g/dl (14.0-18.0); Mean Corpuscular Hemoglobin 33.9 pg (25.0-34.0); Mean Corpuscular Hgb Conc 34.2 g/dL (32.0-36.0); Mean Corpuscular Volume 99.2 fL (80.0-100.0); Mean Platelet Volume 10.3 fL (9.4-12.4); Platelet Count 190 K/uL (130-400); RDW Coefficient of Variation 12.2 % (11.5-14.5); RDW Standard Deviation 44.6 fL (36.4-46.3); Red Blood Count 2.39 M/uL (4.63-6.08); White Blood Count 4.53 K/ul (4.8-10.8)
[2021-12-22 07:52] LABS: Basophils # (auto) 0.05 K/uL (0-0.2); Basophils % (auto) 1.1 %; Eosinophils # (auto) 0.13 K/uL (0-0.50); Eosinophils % (auto) 2.9 %; Immature Granulocytes # (auto) 0.02 K/uL (0.00-0.02); Immature Granulocytes % (auto) 0.4 %; Lymphocytes # (auto) 1.16 K/uL (1.2-3.4); Lymphocytes % (auto) 25.6 %; Monocytes # (auto) 0.63 K/uL (0.24-0.82); Monocytes % (auto) 13.9 %; Neutrophils # (auto) 2.54 K/uL (1.4-6.5); Neutrophils % (auto) 56.1 %; Polychromasia 1+
[2021-12-22] MEDS: THIAMINE HCL 100 MG TAB PO SCH (08:24)
[2021-12-22] MEDS: FOLIC ACID 1 MG TAB PO SCH (08:24)
[2021-12-22] MEDS: DAPTOmycin 250 MG in SYRINGE 0 ML IV SCH (08:24)
[2021-12-22] MEDS: MULTIVITAMIN TAB PO SCH (08:24)
--- NOTE | 2021-12-22 10:12 | Hospitalist Progress Note ---
Date of Service December 22, 2021 Assessment & Plan (1) Cellulitis of foot, right: Plan: 56 y/o M with PMH HTN, hypothyroidism presented to ER with c/o right foot erythema x 3 days followed by worsening erythema, edema and tenderness. Denies fever/chills, known injury/trauma. In ER patient afebrile, initially P: 110, BP: 134/82, R: 20, 100% on RA. No leukocytosis. Initial lactate: 2.6, procalcitonin: 0.10, CRP: 10, ESR: 59 Right ankle x-ray: Soft tissue swelling without acute osseous abnormal RLE Venous Doppler: No evidence of DVT RLE Arterial Doppler: Monophasic but brisk waveforms in the lower extremity without significantly elevated or diminished velocities. Findings may represent mild peripheral arterial disease In ER given IVF, Zosyn, Daptomycin Currently on empirical zosyn and daptomycin Blood cultures pending Repeat lactate pending All cell counts dropped today Possible dilutional from IVF (2) Rash: Plan: Rash reported anterior thighs for 1 week, non tender, nonpruritic Plt WNL Appears petechial like rash (3) Anemia: Plan: Hgb: 12. Was 13.6 in 09/2020. normocytic, normochromic All cell lines today Possible dilutional Hb is 8.1 today Monitor Hb (4) HTN (hypertension): Plan: Stable Continue losartan (5) Hypothyroidism: Plan: Continue levothyroxine (6) Alcohol use: Plan: Drinks 3 beers daily. Denies history withdrawal Monitor for withdrawal symptoms Continue folic acid, thiamine, multivitamin (7) Tobacco use: Plan: Denies nicotine patch Smoking cessation encouraged DVT Prophylaxis Hold lovenox sq for now. Ambulate Patient asking about possible dc today Advised to wait for another day to follow up infectious workup, monitor improvement of symptoms and monitor blood counts Admission and Anticipated Discharge Date Admission Date: December 21, 2021 Subjective Patient seen and examined. Reports improvement in right leg redness. Denies any pain today Denies fevers, chills, nausea, vomiting Denies cough, chest pain, shortness of breath Denies abdominal pain, diarrhea, constipation Denies dysuria, frequency or urgency Physical Exam Constitutional: + well hydrated; no acute distress Eyes: PERRL, conjunctivae normal, anicteric sclerae ENMT: external ear and nose normal, oropharynx normal Respiratory: normal respiratory effort, lungs clear to auscultation Cardiovascular: Rate/Rhythm: regular rate and regular rhythm S1 S2 Gastrointestinal (Abdomen): normal bowel sounds, soft, nontender, no hep atosplenomegaly Musculoskeletal: Right lower leg and ankle erythema, trace edema No tenderness today Some petechiae Neurologic: PERRL, EOMI, accommodation nl, no face palsy, no dysarthria Psychiatric: A+Ox3, euthymic affect Results & Data Results & Data ([facility]) Vital Signs (Past 12 Hours) Vital Signs Temp Pulse Pulse Resp BP Pulse Ox O2 Del Method 12/22/21 07:16 36.7 C 71 18 126/71 100 Room Air 12/22/21 06:58 74 12/22/21 04:10 36.9 C 84 17 108/60 100 Room Air 12/21/21 23:18 36.9 C 71 17 130/78 100 Room Air 12/21/21 22:11 63 Laboratory Results Abnormal lab results 12/21/21 12/21/21 12/21/21 Range/Units 09:50 09:50 09:50 WBC (4.8-10.8) K/ul RBC (4.63-6.08) M/uL Hgb (14.0-18.0) g/dl Hct (40.1-51.0) % Lymph # (Auto) (1.2-3.4) K/uL ESR 59 H (0-20) mm/hr Sodium 131 L (136-145) mmol/L Carbon Dioxide 20 L (21-32) mmol/L BUN/Creatinine Ratio (10-20) Glucose 118 H (70-99(Fasting)) mg/dl Lactate 2.6 H* (0.4-2.0) mmol/L Calcium (8.5-10.1) mg/dl Iron (35-175) mcg/dl Transferrin (200-360) mg/dl Ferritin (8-388) ng/ml Total Bilirubin 2.0 H (0.2-1.0) mg/dl C-Reactive Protein 10.21 H (0-0.5) mg/dl Total Protein (6.0-8.3) gm/dl Albumin (3.4-5.0) gm/dl Globulin 4.3 H (2.5-4.0) gm/dl Albumin/Globulin Ratio 0.8 L (0.9-2) 12/21/21 12/22/21 12/22/21 Range/Units 18:14 06:50 06:50 WBC 4.53 L (4.8-10.8) K/ul RBC 2.39 L (4.63-6.08) M/uL Hgb 8.1 L D (14.0-18.0) g/dl Hct 23.7 L (40.1-51.0) % Lymph # (Auto) 1.16 L (1.2-3.4) K/uL ESR (0-20) mm/hr Sodium 131 L (136-145) mmol/L Carbon Dioxide (21-32) mmol/L BUN/Creatinine Ratio 8.8 L (10-20) Glucose (70-99(Fasting)) mg/dl Lactate (0.4-2.0) mmol/L Calcium 8.0 L (8.5-10.1) mg/dl Iron 19 L (35-175) mcg/dl Transferrin 138 L (200-360) mg/dl Ferritin 430.1 H (8-388) ng/ml Total Bilirubin 1.6 H (0.2-1.0) mg/dl C-Reactive Protein (0-0.5) mg/dl Total Protein 5.4 L D (6.0-8.3) gm/dl Albumin 2.5 L (3.4-5.0) gm/dl Globulin (2.5-4.0) gm/dl Albumin/Globulin Ratio (0.9-2)
[2021-12-22] MEDS: LOSARTAN POTASSIUM 50 MG TAB PO SCH (21:36)
[2021-12-23] MEDS: PIPERACILLIN/TAZOBACTAM 3.375 GM in DEXTROSE 5% 100 ML IV SCH (02:10)
[2021-12-23] MEDS: LEVOTHYROXINE SODIUM 75 MCG TABLET PO SCH (05:56)
[2021-12-23 05:58] LABS: Hematocrit (blood only) 23.6 % (40.1-51.0); Hemoglobin 8.1 g/dl (14.0-18.0); Mean Corpuscular Hgb Conc 34.3 g/dL (32.0-36.0); Mean Corpuscular Volume 99.2 fL (80.0-100.0); Mean Platelet Volume 10.2 fL (9.4-12.4); Platelet Count 210 K/uL (130-400); RDW Coefficient of Variation 12.4 % (11.5-14.5); RDW Standard Deviation 44.9 fL (36.4-46.3); Red Blood Count 2.38 M/uL (4.63-6.08); White Blood Count 4.27 K/ul (4.8-10.8)
[2021-12-23 06:22] LABS: Albumin Globulin Ratio 0.9 (0.9-2); Albumin Level 2.6 gm/dl (3.4-5.0); BUN Creatinine Ratio 8.2 (10-20); Bilirubin,Total 1.4 mg/dl (0.2-1.0); C Reactive Protein 6.17 mg/dl (0-0.5); Calcium 8.1 mg/dl (8.5-10.1); Creatinine Clr Calc Pharmacy 94.1 ml/min; Est GFR (African American) 112.1 ml/min; Est GFR (Non-African American) 96.7 ml/min; Globulin 2.9 gm/dl (2.5-4.0); Potassium 3.9 mmol/L (3.5-5.1); Total Protein 5.5 gm/dl (6.0-8.3)
[2021-12-23] MEDS: THIAMINE HCL 100 MG TAB PO SCH (08:02)
[2021-12-23] MEDS: DAPTOmycin 250 MG in SYRINGE 0 ML IV SCH (08:02)
[2021-12-23] MEDS: FOLIC ACID 1 MG TAB PO SCH (08:02)
[2021-12-23] MEDS: MULTIVITAMIN TAB PO SCH (08:02)
--- NOTE | 2021-12-23 09:20 | Discharge Summary ---
Date of Service December 23, 2021 Admission HPI Per Admitting Provider Patient is 56 y/o M with PMH HTN, hypothyroidism presented to ER with c/o right foot erythema x 3 days. History obtained from patient and chart review. Patient states 3 days ago started with redness and pain to right medial foot and ankle that has since spread. States later noticed swelling to right ankle and foot. Having pain to right knee with flexion only. Denies any known injury or trauma. Denies any known scratches or open areas. No known h/o MRSA. He also reports noticed rash to bilateral thighs for past week or so that is not pruritic or painful. Denies other rashes, recent insect bites. Patient states has chronic cough from smoking but denies any increased cough. Denies fever/chills, diaphoresis, N/V/D/C, ARANGO, dizziness, syncope, vision changes, neck pain, CP, SOB, palpitations, sore throat, choking, otalgia, rhinorrhea, abdominal pain, paresthesias, weakness, extremity weakness, rashes, urinary symptoms, weight loss. No history diabetes. A1c: 5.1 n 07/2021. Admission Exam Per Admitting Provider General: no acute distress, thin male, appears older than stated age Head: normocephalic, atraumatic Eyes: conjunctiva non-injected, anicteric ENT: normal inspection external ears, nose, mucous membranes moist Neck: supple, trachea midline Lungs: clear, no respiratory distress, no wheezing/rhonchi/rales CV: RRR, no murmur, no pretibial edema LLE Abd: normal BS, soft, non-tender Ext:no calf tenderness, RLE: +erythema, warmth and tenderness to palpation proximal medial, lateral and posterior foot and ankle, +lower leg extending to foot. distal pulses difficult to palpate, sensation to light touch intact Neuro: A&O x 3, no focal deficits noted, flat affect Skin: warm, dry, +purple/red round spots that are non-blanching to anterior thighs bilaterally; RLE as above Principal Diagnosis Right leg cellulitis Discharge Exam Constitutional + well hydrated; no acute distress Eyes PERRL, conjunctivae normal, anicteric sclerae ENMT external ear and nose normal, oropharynx normal Respiratory normal respiratory effort, lungs clear to auscultation Cardiovascular Rate/Rhythm: regular rate and regular rhythm S1 S2 Gastrointestinal (Abdomen) normal bowel sounds, soft, nontender, no hepatosplenomegaly Musculoskeletal Right lower leg and ankle erythema, trace edema No tenderness today Some maculopapular spots/rash on both thighs Neurologic PERRL, EOMI, accommodation nl, no face palsy, no dysarthria Psychiatric A+Ox3, euthymic affect Discharge Data Allergies Allergy/AdvReac Type Severity Reaction Status Date / Time No Known Allergies Allergy Verified 12/21/21 13:04 Consultations 12/21/21 13:06 ED Decision to Admit Stat Ordered Studies 12/21/21 09:40 US venous doppler LE RT Stat 12/21/21 10:06 US arterial duplex LE RT Stat Hospital Course (1) Cellulitis of foot, right: 56 y/o M with PMH HTN, hypothyroidism presented to ER with c/o right foot erythema x 3 days followed by worsening erythema, edema and tenderness. Denies fever/chills, known injury/trauma. In ER patient afebrile, initially P: 110, BP: 134/82, R: 20, 100% on RA. No leukocytosis. Initial lactate: 2.6, procalcitonin: 0.10, CRP: 10, ESR: 59 Right ankle x-ray: Soft tissue swelling without acute osseous abnormal RLE Venous Doppler: No evidence of DVT RLE Arterial Doppler: Monophasic but brisk waveforms in the lower extremity without significantly elevated or diminished velocities. Findings may represent mild peripheral arterial disease In ER given IVF, Zosyn, Daptomycin Blood cultures negative Repeat lactate 1.1 (2) Rash: Rash reported anterior thighs for 1 week, non tender, nonpruritic Admitting Provider spoke with [employer]metics Presser Dr Arias who recommend to treat cellulitis first and if rash on thigh does not improve or get worse after antibiotics treatment, to get biopsy to rule out HSP (3) Anemia: Hgb: 12 on admission. Was 13.6 in 09/2020. normocytic, normochromic All cell lines dropped Possible dilutional Hb remains stable at 8.1 Monitor Hb and manage appropriately (4) HTN (hypertension): Stable Continue losartan (5) Hypothyroidism: Continue levothyroxine (6) Alcohol use: Drinks 3 beers daily. Denies history withdrawal Total bilirubin elevated at 2 on admission, improved to 1.4 Other LFT normal Counseled to quit alcohol (7) Tobacco use: Denies nicotine patch Smoking cessation encouraged Total Time Total Time Spent Total Time Spent (In Minutes): 45 Total Time Includes: Examination of the Patient, Discharge Planning and Medication Reconciliation Discharge Plan Discharge Items Patient Disposition: Home - Self-Care Reason For Visit: Right leg/foot pain and swelling Discharge Diagnosis: Right leg cellulitis Activity: Resume your previous activity Non-emergency contact: Primary Care Provider Call non-emergency contact if: you have any medication questions Follow-up/Referrals: Te Guido MD [Primary Care Provider] - (Date & Time 12/27/2021 10:20 AM Provider Te Guido MD [facility] ) Diet: Heart Healthy Addtl Attending Provider Instructions: Mr Eric Quiroz presented to the hospital for right leg and foot redness/pain. You were evaluated and treated for right leg cellulitis. You are being discharged on oral antibiotics to complete treatment. It was a pleasure taking care of you. Pending Studies at Discharge: No Stand-Alone Forms: My [facility], Smoking Cessation Medications and DC Order Prescriptions: New vitamin B complex Tablet 1 tab PO DAILY Qty: 30 0RF amoxicillin-pot clavulanate 875-125 mg tablet 1 tab PO BID 4 Days Qty: 8 0RF doxycycline monohydrate 100 mg capsule 100 mg PO DAILY 4 Days Qty: 4 0RF Continued losartan 50 mg tablet 50 mg PO PM levothyroxine 75 mcg tablet 75 mcg PO DAILY Discharge Orders: Discharge Order (Routine); Ordered 12/23/21 Ordered By: Anastasia Gaona Admission Data Admit Date/Time: 12/21/21 13:13 Attending Provider: Anastasia Gaona I. Admit Provider: Tray Pulido Primary Care Provider: Te Guido Other Providers: Tray Pulido Other Interventions: Discharge Summary Assessment (RN) Last Done: 12/23/21 09:34
--- NOTE | 2021-12-30 14:07 | Coding Query ---
BMI To promote full compliance with coding requirements relating to patient care, physician participation is requested in all cases of television director uncertainty. Please assist us with the question(s) below: Please place an X within the parenthesis (x). If other, please document: BMI 16.7 was documented in this record for this patient. If the BMI is significant, please check the box that provides a more specific associated diagnosis: ( ) Overweight/Obese ( ) Obesity ( ) Morbid obesity ( ) Obesity Hypoventilation Syndrome (OHS) ( ) Heathy weight, not significant ( X) Underweight/Thin ( ) Other, please specify Thank you Alisson TAYLOR
== END 2021-12-23 10:14 | disposition home or self-care (01) | DRG 603 ==
LOC: ED 09:12 → SUATTDRO 13:13 → 2N 13:13

== ENCOUNTER 2022-10-31 13:36 | Inpatient (IN) ==
--- NOTE | 2022-10-31 13:57 | Emergency Department Note ---
ED Provider Note History of Present Illness Chief Complaint: Shortness of Breath/Dyspnea Stated Complaint: left knee swelling and pain; dizzy; Time Seen by Provider: 10/31/22 13:57 This is a 57-year-old gentleman with a history of anemia, alcohol use, tobacco use, hypertension, who presents to the emergency department with pain and brui sing to his right foot and ankle that started about a week ago, bruising to his left leg, rash on both of his legs, and feeling lightheaded when he stands up over the past 3 days. He states this feels similar to when he was admitted last year for IV antibiotics related to an infection in his right foot. He acknowledges that he developed a similar type of rash on his legs at that time. Several days ago he noticed a bruise on his left thigh and knee, does not endorse any specific injuries to this area either. He has not wanted to eat or drink very much over the past 3 days because it causes nausea. He has not vomited. He has not passed out, but feels like he might when he stands up. Denies any chest pain. Feels cold but denies any fevers. Denies any specific injuries or falls. Drinks 3 to 4 cans of beer on a daily basis. Does not follow with a primary care provider. Denies any history of diabetes. Does not take any daily medications Home Medications Medication Instructions Recorded Confirmed Type No Known Home Medications 10/31/22 10/31/22 History Allergies Allergy/AdvReac Type Severity Reaction Status Date / Time No Known Allergies Allergy Verified 12/21/21 13:04 Past Med/Surg History Medical History Alcohol use HTN (hypertension) Hypothyroidism Left inguinal hernia Osteoarthritis Tobacco use Vitamin D deficiency Surgical History H/O left inguinal hernia repair History of tooth extraction S/P left inguinal hernia repair Family History Father Myocardial infarction Coronary heart disease Mother No problems noted. Sister No problems noted. Grandmother (Maternal) Diabetes Social History Smoking Status: Light tobacco smoker Cigarettes Per Day: 3-4; Second Hand Exposure: No; Do You Dip or Chew Tobacco: No; Hx Alcohol Use: Yes Alcohol type: beer Hx Substance Use: No Preferred Language: Uzbek Communication Ability: Effective Wire Harness Assembler Required: No Beliefs That Will Affect Care: None Current Living Situation: Alone Feels Safe at Home: Yes Assistive Devices: None Physical Exam Vital Signs Vital Signs - 24 hr 10/31/22 13:40 10/31/22 13:59 10/31/22 14:05 Temperature 97.9 F Temperature Source Temporal Artery Scan Pulse Rate 93 H 98 H Pulse Rate from SpO2 Sensor Respiratory Rate 16 Respiratory Effort / Characteristics Non-Labored Spontaneous Non-Labored Respiratory Depth Normal Respiratory Pattern Regular Blood Pressure 99/68 L Blood Pressure Mean 78 Blood Pressure Position Sitting Pulse Oximetry 99 Oxygen Delivery Method Room Air Sepsis Recent Fever Within 48 Hours No Sepsis New/Unexplained Change in Mental Status No Sepsis Action Taken by Nursing No Action Required 10/31/22 14:27 10/31/22 14:27 10/31/22 13:58 Temperature Temperature Source Pulse Rate 101 H Pulse Rate from SpO2 Sensor Respiratory Rate 18 Respiratory Effort / Characteristics Respiratory Depth Respiratory Pattern Blood Pressure Blood Pressure Mean Blood Pressure Position Pulse Oximetry Oxygen Delivery Method Room Air Room Air Sepsis Recent Fever Within 48 Hours Sepsis New/Unexplained Change in Mental Status Sepsis Action Taken by Nursing 10/31/22 14:00 10/31/22 14:01 10/31/22 14:01 Temperature Temperature Source Pulse Rate 94 H 98 H Pulse Rate from SpO2 Sensor 100 H 100 H Respiratory Rate 17 22 Respiratory Effort / Characteristics Respiratory Depth Respiratory Pattern Blood Pressure 135/89 Blood Pressure Mean 101 Blood Pressure Position Pulse Oximetry 100 100 Oxygen Delivery Method Sepsis Recent Fever Within 48 Hours Sepsis New/Unexplained Change in Mental Status Sepsis Action Taken by Nursing 10/31/22 14:10 10/31/22 14:20 10/31/22 14:30 Temperature Temperature Source Pulse Rate 96 H 88 Pulse Rate from SpO2 Sensor 96 H 92 H Respiratory Rate 17 24 Respiratory Effort / Characteristics Respiratory Depth Respiratory Pattern Blood Pressure 139/71 Blood Pressure Mean 91 Blood Pressure Position Pulse Oximetry 100 100 Oxygen Delivery Method Sepsis Recent Fever Within 48 Hours Sepsis New/Unexplained Change in Mental Status Sepsis Action Taken by Nursing 10/31/22 14:30 10/31/22 14:40 10/31/22 14:50 Temperature Temperature Source Pulse Rate 91 H 90 83 Pulse Rate from SpO2 Sensor 92 H 90 84 Respiratory Rate 15 19 17 Respiratory Effort / Characteristics Respiratory Depth Respiratory Pattern Blood Pressure Blood Pressure Mean Blood Pressure Position Pulse Oximetry 100 100 100 Oxygen Delivery Method Sepsis Recent Fever Within 48 Hours Sepsis New/Unexplained Change in Mental Status Sepsis Action Taken by Nursing 10/31/22 15:00 10/31/22 15:00 10/31/22 15:10 Temperature Temperature Source Pulse Rate 86 85 Pulse Rate from SpO2 Sensor 85 85 Respiratory Rate 19 22 Respiratory Effort / Characteristics Respiratory Depth Respiratory Pattern Blood Pressure 126/96 Blood Pressure Mean 106 Blood Pressure Position Pulse Oximetry 100 100 Oxygen Delivery Method Sepsis Recent Fever Within 48 Hours Sepsis New/Unexplained Change in Mental Status Sepsis Action Taken by Nursing 10/31/22 15:20 10/31/22 15:30 10/31/22 15:30 Temperature Temperature Source Pulse Rate 82 80 Pulse Rate from SpO2 Sensor 83 81 Respiratory Rate 21 19 Respiratory Effort / Characteristics Respiratory Depth Respiratory Pattern Blood Pressure 117/58 L Blood Pressure Mean 70 Blood Pressure Position Pulse Oximetry 100 100 Oxygen Delivery Method Sepsis Recent Fever Within 48 Hours Sepsis New/Unexplained Change in Mental Status Sepsis Action Taken by Nursing 10/31/22 15:40 10/31/22 15:50 10/31/22 16:00 Temperature Temperature Source Pulse Rate 84 80 Pulse Rate from SpO2 Sensor 83 Respiratory Rate 19 15 Respiratory Effort / Characteristics Respiratory Depth Respiratory Pattern Blood Pressure 119/78 Blood Pressure Mean 91 Blood Pressure Position Pulse Oximetry 100 Oxygen Delivery Method Sepsis Recent Fever Within 48 Hours Sepsis New/Unexplained Change in Mental Status Sepsis Action Taken by Nursing 10/31/22 16:00 10/31/22 16:30 10/31/22 16:30 Temperature Temperature Source Pulse Rate 80 79 Pulse Rate from SpO2 Sensor 80 Respiratory Rate 25 H 24 Respiratory Effort / Characteristics Respiratory Depth Respiratory Pattern Blood Pressure 126/67 Blood Pressure Mean 83 Blood Pressure Position Pulse Oximetry 100 Oxygen Delivery Method Sepsis Recent Fever Within 48 Hours Sepsis New/Unexplained Change in Mental Status Sepsis Action Taken by Nursing CONSTITUTIONAL: Thin appearing, mildly ill-appearing, otherwise nontoxic HEAD: Normocephalic, atraumatic. EYES: Extraocular muscles intact. ENMT: External ears normal. Nose with normal external appearance, no congestion. Oral mucous membranes dry. Oropharynx otherwise normal. NECK: Full active range of motion. LYMPHATIC: No inguinal adenopathy RESPIRATORY: Breathing unlabored and symmetric. Lungs clear to auscultation bilaterally. No wheeze, rales, or rhonchi. CARDIOVASCULAR: Regular rate and rhythm. No murmurs, rubs, or gallops. Left leg with a palpable PT pulse, unable to palpate this due to edema in the right leg. DP pulses are unable to be palpated. ABDOMEN: Normal bowel sounds. Soft, no focal tenderness. MUSCULOSKELETAL: Moves bilateral upper extremities at all joints without pain or difficulty. Able to move bilateral lower extremities and toes. Right lower extremity: There is a deep purple nonblanching rash located on the medial aspect from the foot and heel extending up to the distal third of the leg. This is warm to touch and there is associated edema. Tender to palpation. There is a chronic appearing wound superficial in nature located along the medial heel. There is a similar appearing but much less significant rash loc ated along the medial foot. This is nontender. There is an old appearing ecchymotic area to the left medial thigh and some old ecchymosis to the left medial knee. Neither of these are tender. SKIN: [place], warm, dry. There are scattered purple nonblanching macules located on bilateral anterior legs. NEUROLOGIC: Awake, alert, oriented x3. Gaze is conjugate. Face symmetric, speech normal. Moves head and all four extremities spontaneously. Sensation and strength grossly intact. PSYCHIATRIC: Appropriate. Normal affect Course Administered Medications Sodium Chloride (Nss 1000ml) 1,000 mls @ 65 mls/hr IV .[id number] GAIL Stop: 11/01/22 10:08 Last Admin: 10/31/22 20:17 Dose: 65 mls/hr Documented By: CLR Magnesium Sulfate/Dextrose (Magnesium Sulfate / D5w) 1 gm in 100 mls @ 50 mls/ hr IV Q2H GAIL Stop: 11/01/22 05:59 Last Admin: 10/31/22 22:42 Dose: 50 mls/hr Documented By: CLR Discontinued Medications Sodium Chloride (Nss 1000ml) 1,000 mls @ 999 mls/hr IV .[id number] ONE Stop: 10/31/22 15:16 Last Infusion: 10/31/22 15:29 Dose: 0 mls/hr Documented By: Admin: 10/31/22 14:25 Dose: 999 mls/hr Documented By: HS Vancomycin HCl 1,250 mg/ (Sodium Chloride) 525 mls @ 200 mls/hr IV NOW ONE Stop: 10/31/22 17:53 Last Admin: 10/31/22 16:24 Dose: 200 mls/hr Documented By: LISA Cefepime HCl (Maxipime) 2,000 mg in 20 mls @ 5 mls/min IV NOW STA; Protocol Stop: 10/31/22 15:19 Last Admin: 10/31/22 16:24 Dose: 5 mls/min Documented By: LISA Medical Decision Making Differential Diagnosis Cellulitis, vasculitis, arterial insufficiency, venous insufficiency, purpura, ecchymosis, petechiae, thrombocytopenia, anemia, sepsis, hypovolemia, electrolyte imbalance, osteomyelitis, among other pathology Medical Records Attestation: I reviewed the patient's medical records. (Reviewed prior admission notes. Patient presented similarly and improved with IV antibiotics. Dermatology thought this could have been HSP if no improvement at that time.) Laboratory Data 10/31/22 13:57 10/31/22 13:57 Lab Results 10/31/22 10/31/22 10/31/22 Range/Units 13:57 13:57 13:57 WBC 4.78 L (4.8-10.8) K/ul RBC 2.65 L (4.70-6.10) M/uL Hgb 8.9 L (14.0-18.0) g/dl Hct 26.7 L (42.0-52.0) % MCV 100.8 H (80.0-100.0) fL MCH 33.6 (25.0-34.0) pg MCHC 33.3 (32.0-36.0) g/dL RDW Std Deviation 45.9 (36.4-46.3) fL RDW Coeff of Cordell 12.6 (11.5-14.5) % Plt Count 217 (130-400) K/uL MPV 11.1 (9.4-12.4) fL Immature Gran % (Auto) 0.4 % Neut % (Auto) 64.9 % Lymph % (Auto) 21.8 % [place] % (Auto) 11.3 % Eos % (Auto) 0.6 % Baso % (Auto) 1.0 % Neut # (Auto) 3.10 (1.40-6.50) K/uL Lymph # (Auto) 1.04 L (1.2-3.4) K/uL [place] # (Auto) 0.54 (0.11-0.59) K/uL Eos # (Auto) 0.03 (0-0.50) K/uL Baso # (Auto) 0.05 (0-0.2) K/uL Immature Gran # (Auto) 0.02 (0.01-0.20) K/uL ESR (0-20) mm/hr PT (9.0-12.0) Seconds INR (0.9-1.1) APTT (21.0-31.0) Seconds PTT Ratio Sodium 132 L (136-145) mmol/L Potassium 3.6 (3.5-5.1) mmol/L Chloride 104 (98-107) mmol/L Carbon Dioxide 19 L (21-32) mmol/L Anion Gap 9 (3-11) BUN 16 (6-23) mg/dl Creatinine 1.16 (0.6-1.4) mg/dl Est Cr Clr Drug Dosing 63.9 ml/min Est GFR ( Amer) 80.0 ml/min Est GFR (Non-Af Amer) 69.0 ml/min BUN/Creatinine Ratio 13.8 (10-20) Glucose 117 H (70-99(Fasting)) mg/dl Lactate (0.4-2.0) mmol/L Calcium 9.0 (8.6-10.3) mg/dl Unsaturated IBC 198 (155-355) mcg/dl Ferritin 320.3 (8-388) ng/ml Total Bilirubin 2.0 H (0.2-1.0) mg/dl AST 17 (13-39) U/L ALT 9 (7-52) U/L Alkaline Phosphatase 58 (34-104) U/L Troponin I High Sens 2.8 (0-20) pg/ml C-Reactive Protein 9.35 H (0-0.5) mg/dl Total Protein 7.2 (6.0-8.3) gm/dl Albumin 3.4 (3.4-5.0) gm/dl Globulin 3.8 (2.5-4.0) gm/dl Albumin/Globulin Ratio 0.9 (0.9-2) Procalcitonin (0-0.5) ng/ml Ethyl Alcohol mg/dL < 10.0 (<10.0) mg/dl Blood Type Antibody Screen 10/31/22 10/31/22 10/31/22 Range/Units 13:57 14:39 14:39 WBC (4.8-10.8) K/ul RBC (4.70-6.10) M/uL Hgb (14.0-18.0) g/dl Hct (42.0-52.0) % MCV (80.0-100.0) fL MCH (25.0-34.0) pg MCHC (32.0-36.0) g/dL RDW Std Deviation (36.4-46.3) fL RDW Coeff of Cordell (11.5-14.5) % Plt Count (130-400) K/uL MPV (9.4-12.4) fL Immature Gran % (Auto) % Neut % (Auto) % Lymph % (Auto) % [place] % (Auto) % Eos % (Auto) % Baso % (Auto) % Neut # (Auto) (1.40-6.50) K/uL Lymph # (Auto) (1.2-3.4) K/uL [place] # (Auto) (0.11-0.59) K/uL Eos # (Auto) (0-0.50) K/uL Baso # (Auto) (0-0.2) K/uL Immature Gran # (Auto) (0.01-0.20) K/uL ESR (0-20) mm/hr PT 12.2 H (9.0-12.0) Seconds INR 1.1 (0.9-1.1) APTT 28.2 (21.0-31.0) Seconds PTT Ratio 1.0 Sodium (136-145) mmol/L Potassium (3.5-5.1) mmol/L Chloride (98-107) mmol/L Carbon Dioxide (21-32) mmol/L Anion Gap (3-11) BUN (6-23) mg/dl Creatinine (0.6-1.4) mg/dl Est Cr Clr Drug Dosing ml/min Est GFR ( Amer) ml/min Est GFR (Non-Af Amer) ml/min BUN/Creatinine Ratio (10-20) Glucose (70-99(Fasting)) mg/dl Lactate 2.5 H* (0.4-2.0) mmol/L Calcium (8.6-10.3) mg/dl Unsaturated IBC (155-355) mcg/dl Ferritin (8-388) ng/ml Total Bilirubin (0.2-1.0) mg/dl AST (13-39) U/L ALT (7-52) U/L Alkaline Phosphatase (34-104) U/L Troponin I High Sens (0-20) pg/ml C-Reactive Protein (0-0.5) mg/dl Total Protein (6.0-8.3) gm/dl Albumin (3.4-5.0) gm/dl Globulin (2.5-4.0) gm/dl Albumin/Globulin Ratio (0.9-2) Procalcitonin (0-0.5) ng/ml Ethyl Alcohol mg/dL (<10.0) mg/dl Blood Type A Negative Antibody Screen NEGATIVE 10/31/22 10/31/22 Range/Units 14:40 14:40 WBC (4.8-10.8) K/ul RBC (4.70-6.10) M/uL Hgb (14.0-18.0) g/dl Hct (42.0-52.0) % MCV (80.0-100.0) fL MCH (25.0-34.0) pg MCHC (32.0-36.0) g/dL RDW Std Deviation (36.4-46.3) fL RDW Coeff of Cordell (11.5-14.5) % Plt Count (130-400) K/uL MPV (9.4-12.4) fL Immature Gran % (Auto) % Neut % (Auto) % Lymph % (Auto) % [place] % (Auto) % Eos % (Auto) % Baso % (Auto) % Neut # (Auto) (1.40-6.50) K/uL Lymph # (Auto) (1.2-3.4) K/uL [place] # (Auto) (0.11-0.59) K/uL Eos # (Auto) (0-0.50) K/uL Baso # (Auto) (0-0.2) K/uL Immature Gran # (Auto) (0.01-0.20) K/uL ESR 33 H (0-20) mm/hr PT (9.0-12.0) Seconds INR (0.9-1.1) APTT (21.0-31.0) Seconds PTT Ratio Sodium (136-145) mmol/L Potassium (3.5-5.1) mmol/L Chloride (98-107) mmol/L Carbon Dioxide (21-32) mmol/L Anion Gap (3-11) BUN (6-23) mg/dl Creatinine (0.6-1.4) mg/dl Est Cr Clr Drug Dosing ml/min Est GFR ( Amer) ml/min Est GFR (Non-Af Amer) ml/min BUN/Creatinine Ratio (10-20) Glucose (70-99(Fasting)) mg/dl Lactate (0.4-2.0) mmol/L Calcium (8.6-10.3) mg/dl Unsaturated IBC (155-355) mcg/dl Ferritin (8-388) ng/ml Total Bilirubin (0.2-1.0) mg/dl AST (13-39) U/L ALT (7-52) U/L Alkaline Phosphatase (34-104) U/L Troponin I High Sens (0-20) pg/ml C-Reactive Protein (0-0.5) mg/dl Total Protein (6.0-8.3) gm/dl Albumin (3.4-5.0) gm/dl Globulin (2.5-4.0) gm/dl Albumin/Globulin Ratio (0.9-2) Procalcitonin 0.18 (0-0.5) ng/ml Ethyl Alcohol mg/dL (<10.0) mg/dl Blood Type Antibody Screen Imaging Data Attestation: I personally reviewed and interpreted this imaging study as follows: (I agree with the radiologist's interpretation) Radiologist's Impression: Ankle X-Ray 10/31/22 14:16 XR ankle RT min 3V routine CLINICAL HISTORY: Right ankle medial infection. COMPARISON STUDY: Right ankle 12/21/2021. FINDINGS: Soft tissue swelling within the ankle most pronounced medially. No f racture or dislocation. No bony destruction to suggest an osteomyelitis. No radiopaque foreign bodies. The bones are slightly osteopenic. IMPRESSION: Soft tissue swelling within the right ankle. No underlying bony abnormality. ACT 112: Negative or not required by law. Electronically signed by: Omega Bright M.D. 10/31/2022 3:08 PM Chest X-Ray 10/31/22 14:16 XR chest 1V portable CLINICAL HISTORY: sepsis workup TECHNIQUE: Single frontal radiograph of the chest was obtained. Comparison: Comparison is made to chest radiograph 04/28/2007 FINDINGS: No lines and tubes are seen. The cardiomediastinal silhouette is normal. The lungs are clear. No evidence of pleural effusion or pneumothorax. IMPRESSION: No acute abnormalities and in particular no radiographic evidence of pneumonia. ACT 112: Negative or not required by law. Electronically signed by: Jacinto Rick M.D. 10/31/2022 2:41 PM Foot X-Ray 10/31/22 14:16 RIGHT FOOT 3 VIEWS CLINICAL HISTORY: Infection. FINDINGS: 3 views of the right foot are obtained. No prior studies are available for comparison at the time of dictation. The skeletal structures are heterogeneously osteopenic. No fracture is seen. Minimal arthritic change is noted in the foot. No bony erosion or periostitis is identified. Minimal soft tissue swelling is suggested. No soft tissue gas or radiodense foreign body is seen. IMPRESSION: No acute bony abnormality is identified. Electronically signed by: Kaz Portillo M.D. 10/31/2022 2:43 PM MDM Narrative This is a 57-year-old gentleman with a history above who presents to the emerge ncy department with pain, rash, swelling to his right foot and ankle, bruising to the left thigh and knee, and a rash on bilateral anterior legs. See above for further details. Patient initially somewhat ill-appearing, thin at baseline. Blood pressure slightly soft 99/68. Heart 98 at triage. Afebrile. Patient has an impressive nonblanching deep purple confluent rash with swelling and tenderness to the right foot and ankle, minimal in the left foot. There is a wound to the right foot. He has a purpuric nonblanching rash on bilateral anterior legs. There is some old ecchymosis to the left thigh and knee. Sensation is intact. Unable to confirm any palpable pulses in the right foot though there is a PT pulse in the left lower extremity. An IV was inserted, blood cultures and labs were obtained. IV fluids were administered. An order was placed for continuous cardiac monitoring and at time of evaluation demonstrated a sinus rhythm in the 90s. Baseline medical leukopenia 4.78. Baseline anemia hemoglobin 8.9. PT with trace elevation at 12.2, INR is normal at 1.1. Platelets are normal. Mild hyponatremia at 132 likely dietary related. Lactate elevated at 2.5. Total bilirubin slightly elevated 2.0, appears to be baseline. EtOH is negative. Creatinine 1.16, slightly elevated above his baseline. Reviewed notes from when the patient was admitted last year which does seem to be a similar presentation. It sounds like he improved with IV antibiotics at that time. Because of this, he was treated with vancomycin and cefepime after discussing the case with ED clinical pharmacist. X-rays of the right foot and ankle were obtained and negative for osteomyelitis. Chest x-ray is negative. Patient's blood pressure improved with IV fluids, and his tachycardia also improved. Do suspect a component of hypovolemia contributing to his positional lightheadedness Given the patient's similar presentation last year with improvement to IV antibiotics, certainly suspect at least a component of cellulitis that this would be an atypical presentation for this to be cellulitis alone. Also suspect some sort of vasculitic component. Patient not a candidate for outpatient treatment. Case reviewed with ED attending Dr. Almazan who is agreeable with this work-up and plan. Because of this, I spoke with Romina Dela Cruz PA-C with the [facility] hospitalist group and we evaluated the patient together. We decided to obtain an arterial ultrasound which at time of admission was negative for any concerning findings. Suspect the patient will require a much more in-depth work-up on an inpatient basis regarding his symptoms and rash. Impression Cellulitis of right lower extremity, Vasculitis, Nonblanching rash, Open wound of right foot, Orthostatic hypotension, Elevated lactic acid level Discharge Plan Visit Data Chief Complaint: Shortness of Breath/Dyspnea Stated Complaint: left knee swelling and pain; dizzy; ED Provider: Kelly Zafar ED Midlevel Provider: John Shelby Discharge Problem: Cellulitis of right lower extremity, Vasculitis, Nonblanching rash, Open wound of right foot, Orthostatic hypotension, Elevated lactic acid level Patient Disposition: Admitted As Inpatient Discharge Instructions Interventions: ED Discharge Assessment Last Done: 10/31/22 18:18 Open wound of right foot Qualifiers: Encounter type: initial encounter Qualified Code(s): S91.301A - Unspecified open wound, right foot, initial encounter
[2022-10-31] MEDS ORDERED: SODIUM CHLORIDE 0.9% 1000ML 1,000 ML IV ONE (14:16)
--- NOTE | 2022-10-31 14:42 | XRay Report ---
XR chest 1V portable CLINICAL HISTORY: sepsis workup TECHNIQUE: Single frontal radiograph of the chest was obtained. Comparison: Comparison is made to chest radiograph 04/28/2007 FINDINGS: No lines and tubes are seen. The cardiomediastinal silhouette is normal. The lungs are clear. No evid ence of pleural effusion or pneumothorax. IMPRESSION: No acute abnormalities and in particular no radiographic evidence of pneumonia. ACT 112: Negative or not required by law. Electronically signed by: Jacinto Rick M.D. 10/31/2022 2:41 PM
[2022-10-31 14:44] LABS: Basophils # (auto) 0.05 K/uL (0-0.2); Eosinophils # (auto) 0.03 K/uL (0-0.50); Eosinophils % (auto) 0.6 %; Hematocrit (blood only) 26.7 % (42.0-52.0); Hemoglobin 8.9 g/dl (14.0-18.0); Immature Granulocytes # (auto) 0.02 K/uL (0.01-0.20); Immature Granulocytes % (auto) 0.4 %; Lymphocytes # (auto) 1.04 K/uL (1.2-3.4); Lymphocytes % (auto) 21.8 %; Mean Corpuscular Hemoglobin 33.6 pg (25.0-34.0); Mean Corpuscular Hgb Conc 33.3 g/dL (32.0-36.0); Mean Corpuscular Volume 100.8 fL (80.0-100.0); Mean Platelet Volume 11.1 fL (9.4-12.4); Monocytes # (auto) 0.54 K/uL (0.11-0.59); Monocytes % (auto) 11.3 %; Neutrophils % (auto) 64.9 %; Platelet Count 217 K/uL (130-400); RDW Coefficient of Variation 12.6 % (11.5-14.5); RDW Standard Deviation 45.9 fL (36.4-46.3); Red Blood Count 2.65 M/uL (4.70-6.10); White Blood Count 4.78 K/ul (4.8-10.8)
--- NOTE | 2022-10-31 14:44 | XRay Report ---
RIGHT FOOT 3 VIEWS CLINICAL HISTORY: Infection. FINDINGS: 3 views of the right foot are obtained. No prior studies are available for comparison at th e time of dictation. The skeletal structures are heterogeneously osteopenic. No fracture is seen. Min imal arthritic change is noted in the foot. No bony erosion or periostitis is identified. Minimal sof t tissue swelling is suggested. No soft tissue gas or radiodense foreign body is seen. IMPRESSION: No acute bony abnormality is identified. Electronically signed by: Kaz Portillo M.D. 10/31/2022 2:43 PM
[2022-10-31 14:59] LABS: Albumin Globulin Ratio 0.9 (0.9-2); Albumin Level 3.4 gm/dl (3.4-5.0); BUN Creatinine Ratio 13.8 (10-20); Creatinine Clr Calc Pharmacy 63.9 ml/min; Globulin 3.8 gm/dl (2.5-4.0); Potassium 3.6 mmol/L (3.5-5.1); Total Protein 7.2 gm/dl (6.0-8.3)
[2022-10-31 15:05] LABS: Troponin I High Sensitivity 2.8 pg/ml (0-20)
--- NOTE | 2022-10-31 15:10 | XRay Report ---
XR ankle RT min 3V routine CLINICAL HISTORY: Right ankle medial infection. COMPARISON STUDY: Right ankle 12/21/2021. FINDINGS: Soft tissue swelling within the ankle most pronounced medially. No fracture or dislocation. No bony destruction to suggest an osteomyelitis. No radiopaque foreign bodies. The bones are slightl y osteopenic. IMPRESSION: Soft tissue swelling within the right ankle. No underlying bony abnormality. ACT 112: Negative or not required by law. Electronically signed by: Omega Bright M.D. 10/31/2022 3:08 PM
[2022-10-31 15:15] LABS: INR 1.1 (0.9-1.1); Partial Thromboplastin Time 28.2 Seconds (21.0-31.0); Prothrombin Time 12.2 Seconds (9.0-12.0)
[2022-10-31] MEDS ORDERED: VANCOMYCIN CONSULT ACTIVE PRN (15:16)
[2022-10-31] MEDS ORDERED: CEFEPIME 2,000 MG/20 ML VIAL IV STA (15:16)
[2022-10-31] MEDS ORDERED: VANCOMYCIN HCL 1,250 MG in SODIUM CHLORIDE 0.9% 500 ML IV ONE (15:16)
--- NOTE | 2022-10-31 16:17 | History & Physical Report ---
Date of Service October 31, 2022 Assessment & Plan (1) Rash: (2) Anemia: (3) YOJANA (acute kidney injury): (4) Alcohol use: (5) Tobacco use: (6) Nausea: (7) Poor appetite: (8) Vasculitis: (9) Hypomagnesemia: Plan This is a 57-year-old male with PMH of hypertension, hypothyroidism, vitamin D deficiency, chronic pain syndrome, tobacco and alcohol use and other medical problems listed below who presents with pain and bruising to right foot and ankle that he noticed 10 days ago. Vasculitis Petechial/purpuric rash on BLE, arms Afebrile, no leukocytosis, procal WNL, lactate initially 2.5 but normalized with fluids in ED Vasculitic appearance on exam - ESR 33, CRP 9.35, platelets wnl Arterial doppler of BLE added due to arterial appearing wound on medial R ankle Discussed case with Dr. Segura of rheum - added additional labs as below, no indication to start steroids unless clear system involvement like development of worsening renal function or resp failure Pending work-up: UA, RPR, iron studies, B12, folate, lupus anticoagulant, antiphospholipid ab, cardiolipin ab, ANCA with reflex, C3/C4, cryoglobulins, SPEP with immunofixation, Hep C Dr. Modi of gen surg to obtain skin biopsy tomorrow Possible mild cellulitic process but given cefepime, vanco in ED, plan to continue abx for now Poor appetite, nausea In setting of above. Underweight with BMI 17.5 unchanged from admission last year Elevator Technician consult placed Antiemetics as needed Acute kidney injury Cr 1.16 (baseline ~ 0.85), likely a pre-renal component. UA pending, continue to trend HTN Documented in chart as a chronic issue but not compliant with medication Hypothyroidism Noted as a previous issue but not compliant with medication. Will add TSH with reflex Alcohol use disorder Regularly consumes 4 cans of beer daily but has not been drinking for 5 days due to feeling poorly No s/sx of withdrawal at this time, can add withdrawal protocol as needed Tobacco use Endorses 1/4 ppd. Smoking cessation DVT Ppx: SCDs for now Code status: FULL PCP: Hay Dispo: Admitted to med/tele Patient seen in collaboration with Dr. Argueta. Please see addendum. History of Present Illness Chief Complaint: RLE rash Primary Care Provider: Te Guido MD This is a 57-year-old male with PMH of hypertension, hypothyroidism, vitamin D deficiency, chronic pain syndrome, tobacco and alcohol use and other medical problems listed below who presents with pain and bruising to right foot and ankle that he noticed 10 days ago. Noted swelling to right ankle discoloration of skin to dark red/purple. In the past few days spencer has also noticed a rash developing on both legs up to waist as well as noted on bilateral arms and palms. States rash looks very similar to when he was admitted last year for IV antibiotics related to right foot infection. At that time, dermatology waited with thought that it looked consistent with Henoch-Schnlein purpura and recommended skin biopsy if no improvement. Denies any known falls or trauma to the area. Associated symptoms include decreased appetite, nausea and lightheadedness especially with standing. No F,C, CP, SOB, vomiting, abdominal pain, dysuria, diarrhea or constipation. No known tick bites. Denies recent sexual activity. Usually drinks 4 cans of beer daily but hasn't had a drink in 5 days due to feeling poorly. Smokes ~5 cigarettes a day. Was last seen in January 2022. Not on any regular home medications. Allergies Allergy/AdvReac Type Severity Reaction Status Date / Time No Known Allergies Allergy Verified 12/21/21 13:04 Home Medications Medication Instructions Recorded Confirmed Type No Known Home Medications 10/31/22 10/31/22 History Past Med/Surg History Medical History Alcohol use HTN (hypertension) Hypothyroidism Left inguinal hernia Osteoarthritis Tobacco use Vitamin D deficiency Surgical History H/O left inguinal hernia repair History of tooth extraction S/P left inguinal hernia repair Family History Father Myocardial infarction Coronary heart disease Mother No problems noted. Sister No problems noted. Grandmother (Maternal) Diabetes Social History Smoking Status: Light tobacco smoker Cigarettes Per Day: 3-4; Second Hand Exposure: No; Do You Dip or Chew Tobacco: No; Hx Alcohol Use: Yes Alcohol type: beer Hx Substance Use: No Preferred Language: Mohawk Communication Ability: Effective Health Promoter Required: No Beliefs That Will Affect Care: None Current Living Situation: Alone Feels Safe at Home: Yes Assistive Devices: None Review of Systems Review of Systems: At least ten systems reviewed and negative except as noted in the HPI. Physical Exam Physical Exam: General Appearance: WD/WN, vitals as above, NAD, thin appearing male Head: normocephalic, atraumatic Eyes: normal inspection, PERRL, conjunctivae normal, anicteric sclerae ENT: external ear and nose normal, oropharynx normal Neck: normal visual inspection, trachea midline, no thyromegaly Respiratory: normal respiratory effort, lungs clear to auscultation, no wheeze, rales, rhonchi. No accessory muscle use Cardiovascular: regular rate, rhythm, no murmur, normal peripheral pulses, no BLE edema. Vessels: no JVD Chest: normal inspection of chest Abdomen/GI: normal bowel sounds, soft, nontender, no hepatosplenomegaly Extremities/Musculoskeletal: + R ankle and lower leg with dark red/purple discoloration and edema, bilateral toes with similar discoloration. R medial ankle with well circumscribed wound with eschar. Petechial/purpuric rash noted on BLE as well as arms, non-blanchable, diminished DP and PT pulses. Bilateral palmar aspects on hands with macular pale lesions, nodular bruise also noted on R palm and L medial thigh. Neurologic: PERRL, EOMI, accommodation nl, no face palsy, no dysarthria, CN's II-XI intact bilaterally and moves all extremities Psychiatric: A+Ox3, euthymic affect Skin: +Rash noted above, normal color, warm/dry Results & Data Results & Data Vital Signs (Past 12 Hours) Vital Signs Temp Pulse Resp BP Pulse Ox O2 Del Method 10/31/22 15:50 80 15 10/31/22 15:40 84 19 100 10/31/22 15:30 80 19 100 10/31/22 15:30 117/58 L 10/31/22 15:20 82 21 100 10/31/22 15:10 85 22 100 10/31/22 15:00 86 19 100 10/31/22 15:00 126/96 10/31/22 14:50 83 17 100 10/31/22 14:40 90 19 100 10/31/22 14:30 91 H 15 100 10/31/22 14:30 139/71 10/31/22 14:20 88 24 100 10/31/22 14:10 96 H 17 100 10/31/22 14:01 135/89 10/31/22 14:01 98 H 22 100 10/31/22 14:00 94 H 17 100 10/31/22 13:58 101 H 18 10/31/22 14:27 Room Air 10/31/22 14:27 Room Air 10/31/22 13:59 98 H 10/31/22 13:40 36.6 C 93 H 16 99/68 L 99 Room Air Laboratory Results Short CBC 10/31/22 Range/Units 13:57 WBC 4.78 L (4.8-10.8) K/ul Hgb 8.9 L (14.0-18.0) g/dl Hct 26.7 L (42.0-52.0) % Plt Count 217 (130-400) K/uL BMP 10/31/22 13:57 Sodium 132 L Potassium 3.6 Chloride 104 Carbon Dioxide 19 L BUN 16 Creatinine 1.16 Glucose 117 H Calcium 9.0 Liver Function 10/31/22 Range/Units 13:57 Total Bilirubin 2.0 H (0.2-1.0) mg/dl AST 17 (13-39) U/L ALT 9 (7-52) U/L Alkaline Phosphatase 58 (34-104) U/L Albumin 3.4 (3.4-5.0) gm/dl Diagnostic Findings Ankle X-Ray 10/31/22 14:16 XR ankle RT min 3V routine CLINICAL HISTORY: Right ankle medial infection. COMPARISON STUDY: Right ankle 12/21/2021. FINDINGS: Soft tissue swelling within the ankle most pronounced medially. No fracture or dislocation. No bony destruction to suggest an osteomyelitis. No radiopaque foreign bodies. The bones are slightly osteopenic. IMPRESSION: Soft tissue swelling within the right ankle. No underlying bony abnormality. ACT 112: Negative or not required by law. Electronically signed by: Omega Bright M.D. 10/31/2022 3:08 PM Chest X-Ray 10/31/22 14:16 XR chest 1V portable CLINICAL HISTORY: sepsis workup TECHNIQUE: Single frontal radiograph of the chest was obtained. Comparison: Comparison is made to chest radiograph 04/28/2007 FINDINGS: No lines and tubes are seen. The cardiomediastinal silhouette is normal. The lungs are clear. No evidence of pleural effusion or pneumothorax. IMPRESSION: No acute abnormalities and in particular no radiographic evidence of pneumonia. ACT 112: Negative or not required by law. Electronically signed by: Jacinto Rick M.D. 10/31/2022 2:41 PM Foot X-Ray 10/31/22 14:16 RIGHT FOOT 3 VIEWS CLINICAL HISTORY: Infection. FINDINGS: 3 views of the right foot are obtained. No prior studies are available for comparison at the time of dictation. The skeletal structures are heterogeneously osteopenic. No fracture is seen. Minimal arthritic change is noted in the foot. No bony erosion or periostitis is identified. Minimal soft tissue swelling is suggested. No soft tissue gas or radiodense foreign body is seen. IMPRESSION: No acute bony abnormality is identified. Electronically signed by: Kaz Portillo M.D. 10/31/2022 2:43 PM Supervising Physician Co-Signing Physician Notes I have seen and examined the patient and have discussed the case with the provider above. I agree with the assessment and plan as stated. 57-year-old man presented with left knee swelling and pain as well as generalized shortness of breath and malaise. He reports a rash on his legs in addition to a bruise on his left thigh and knee that are uncomfortable. He reports some nausea over the past 3 days. Denies chest pain. Chronic heavy beer drinker. On exam he is thin and frail. He is oriented but is a poor historian. He is unkempt and has a sputum and nails. He has a nonblanchable petechial rash on both lower extremities bilaterally and some on his lower arms. He has a spotted nonblanchable rash on his palms bilaterally. There is a significant area of purple in his distal right lower extremity and an area of ecchymosis in his inner left thigh. Workup includes a CBC with persistent anemia that is microcytic and unchanged from 1 year ago. Sodium is low at 132. Bicarb is low at 19. Renal function is worsened from baseline, currently with BUN 16 and creatinine 1.16. Lactate initially elevated to 2.5 and improved to 1.9 after therapy in the ER. Iron studies were ordered. Total bilirubin is 2.0 but this is around his baseline in previous years. An SPEP was ordered. Hypercoagulable workup was ordered. Vitamin B12 was low normal at 292 with a normal folate of 9.35. Hemolytic anemia workup ordered. 1. Petechial rash consistent with possible vasculitis. Agree with consulting rheumatology, possible superimposed cellulitis so agree with initial broad- spectrum antibiotics. Holding on any steroids at this time pending further workup including studies noted above. PEnding skin biopsy in am by general surgery. 2. Constitutional symptoms. Consider further workup for malignancy. Weight trended since last year and no significant weight loss noted although he is underweight. It is likely constitutional symptoms may be related to petechial rash above. Notably he appears to have some systemic involvement with elevated inflammatory markers. 3. Acute kidney injury-repeat BMP after IV hydration overnight. 4. Alcohol use disorder likely contributing to some element of malnutrition. Also contributing to hypomagnesemia that is significant. Replace magnesium and monitor for signs and symptoms of withdrawal. Kendall, DO
--- NOTE | 2022-10-31 17:37 | Electrocardiogram Report ---
Test Reason : Blood Pressure : / mmHG Vent. Rate : 088 BPM Atrial Rate : 088 BPM P-R Int : 126 ms QRS Dur : 084 ms QT Int : 346 ms P-R-T Axes : 076 103 079 degrees QTc Int : 418 ms Normal sinus rhythm Rightward axis Borderline ECG No previous ECGs available Confirmed by Jameson Terrell ([id number]) on 10/31/2022 5:36:41 PM Referred By: REFERRED SELF Confirmed By:Juan Carlos Terrell
[2022-10-31 18:19] LABS: C Reactive Protein 9.35 mg/dl (0-0.5)
[2022-10-31] MEDS ORDERED: SODIUM CHLORIDE 0.9% 1000ML 1,000 ML IV SCH (18:45)
[2022-10-31] MEDS ORDERED: ONDANSETRON INJ 2 MG/ML 2 ML VIAL IV PRN (19:06)
[2022-10-31] MEDS ORDERED: POLYETHYLENE (MIRALAX) 17 GM PACK PO PRN (19:06)
[2022-10-31] MEDS ORDERED: ACETAMINOPHEN 325 MG TAB PO PRN (19:06)
[2022-10-31 19:32] LABS: Folate (Folic Acid),Ser orPlas 9.35 ng/ml (>5.38)
--- NOTE | 2022-10-31 19:32 | Pharmacy Report ---
Pharmacy PK ABX Note - Date of Service October 31, 2022 - Assessment and Plan Assessment 57 year old started on vancomycin for RLE erythema/rash, purpuric rash on BLE/arms. Blood cultures pending, foot/ankle xray negative for osteomyelitis. Possible skin biopsy ordered for tomorrow Day # 1 of antimicrobial therapy. Vancomycin * Loading dose: 1250 mg x 1 (ED) * Maintenance dose: Plan to start vancomycin 750 mg iv q 12 hrs * Regimen is predicted to achieve target AUC/CELESTINO of 400-600 mg/L.hr * Plan to order level if continued >48 hours Pharmacy has transitioned to AUC monitoring for vancomycin. AUC/CELESTINO is the preferred PK/PD target and is associated with decreased risk of nephrotoxicity compared to traditional trough targets.
[2022-10-31 19:53] LABS: Ferritin 320.3 ng/ml (8-388)
[2022-10-31] MEDS: MAGNESIUM SULFATE / D5W 1 GM/100 ML BAG IV SCH (22:42)
--- NOTE | 2022-10-31 23:33 | Ultrasound Report ---
Exam(s): US ARTERIAL BILATERAL LOWER EXTREMITIES EXAM: US Duplex Bilateral Lower Extremities Arteries CLINICAL HISTORY: Reason for exam: skin changes more priminent L medial ankle. TECHNIQUE: Real-time duplex ultrasound scan of the bilateral lower extremity arteries integrating B-mode two-dimensional vascular structure, Doppler spectral analysis and color flow Doppler imaging. COMPARISON: No relevant prior studies available. FINDINGS: Right common femoral artery: No acute findings. No occlusion or significant stenosis on color flow and spectral Doppler imaging. Normal waveform. Right superficial femoral artery: No acute findings. No occlusion or significant stenosis on color flow and spectral Doppler imaging. Normal waveform. Right popliteal artery: No acute findings. No occlusion or significant stenosis on color flow and spectral Doppler imaging. Normal waveform. Right calf/foot arteries: No acute findings. No occlusion or significant stenosis on color flow and spectral Doppler imaging. Normal waveform. Left common femoral artery: No acute findings. No occlusion or significant stenosis on color flow and spectral Doppler imaging. Normal waveform. Left superficial femoral artery: No acute findings. No occlusion or significant stenosis on color flow and spectral Doppler imaging. Normal waveform. Left popliteal artery: No acute findings. No occlusion or significant stenosis on color flow and spectral Doppler imaging. Normal waveform. Left calf/foot arteries: No acute findings. No occlusion or significant stenosis on color flow and spectral Doppler imaging. Normal waveform. Soft tissues: Unremarkable. IMPRESSION: Normal bilateral lower extremity duplex arterial ultrasound. Electronically signed by: Darshan Gagnon MD 10/31/22 23:33 PM
[2022-11-01] MEDS: MAGNESIUM SULFATE / D5W 1 GM/100 ML BAG IV SCH ×3 (00:53→05:08)
[2022-11-01] MEDS: VANCOMYCIN HCL 750 MG in SODIUM CHLORIDE 0.9% 250 ML IV SCH ×3 (00:53→23:30)
[2022-11-01] MEDS: CEFEPIME 2,000 MG in SYRINGE 0 ML IV SCH ×4 (00:53→23:30)
[2022-11-01 06:37] LABS: Hematocrit (blood only) 20.3 % (42.0-52.0); Hemoglobin 6.7 g/dl (14.0-18.0); Mean Corpuscular Hemoglobin 33.2 pg (25.0-34.0); Mean Corpuscular Volume 100.5 fL (80.0-100.0); Platelet Count 173 K/uL (130-400); RDW Coefficient of Variation 12.5 % (11.5-14.5); RDW Standard Deviation 45.6 fL (36.4-46.3); Red Blood Count 2.02 M/uL (4.70-6.10)
[2022-11-01 06:46] LABS: Albumin Level 2.5 gm/dl (3.4-5.0); Bilirubin Direct 0.4 mg/dl (0-0.2); Bilirubin,Total 1.8 mg/dl (0.2-1.0); Calcium 7.9 mg/dl (8.6-10.3); Potassium 3.8 mmol/L (3.5-5.1)
[2022-11-01 07:03] LABS: Reticulocyte % 6.5 % (0.5-2.0); Reticulocytes # 0.13 10^6/uL (0.02-0.10)
[2022-11-01 07:37] LABS: Hematocrit (blood only) 19.6 % (42.0-52.0); Hemoglobin 6.5 g/dl (14.0-18.0)
[2022-11-01] MEDS ORDERED: SODIUM CHLORIDE 0.9% 250 ML IV PRN (07:43)
[2022-11-01] MEDS ORDERED: ACETAMINOPHEN 325 MG TAB PO SCH (08:00)
[2022-11-01] MEDS ORDERED: diphenhydrAMINE Capsule 25 MG CAP PO SCH (08:00)
[2022-11-01] MEDS: CYANOCOBALAMIN (B-12) 500 MCG TABLET PO SCH (08:23)
[2022-11-01 10:56] LABS: Albumin Globulin Ratio 0.8 (0.9-2); BUN Creatinine Ratio 14.4 (10-20); Creatinine Clr Calc Pharmacy 69.7 ml/min; Est GFR (African American) 99.3 ml/min; Est GFR (Non-African American) 85.7 ml/min; Total Protein 5.5 gm/dl (6.0-8.3)
--- NOTE | 2022-11-01 13:22 | Hospitalist Progress Note ---
Date of Service November 01, 2022 Assessment & Plan (1) Rash: (2) Anemia: (3) YOJANA (acute kidney injury): (4) Alcohol use: (5) Tobacco use: (6) Nausea: (7) Poor appetite: (8) Vasculitis: (9) Hypomagnesemia: Plan per admitting service notes with addendum: This is a 57-year-old male with PMH of hypertension, hypothyroidism, vitamin D deficiency, chronic pain syndrome, tobacco and alcohol use and other medical problems listed below who presents with pain and bruising to right foot and ankle that he noticed 10 days ago. Vasculitis Petechial/purpuric rash on BLE, arms Afebrile, no leukocytosis, procal WNL, lactate initially 2.5 but normalized with fluids in ED Vasculitic appearance on exam - ESR 33, CRP 9.35, platelets wnl Arterial doppler of BLE added due to arterial appearing wound on medial R ankle Discussed case with Dr. Segura of rheum - added additional labs as below, no indication to start steroids unless clear system involvement like development of worsening renal function or resp failure Pending work-up: UA, RPR, iron studies, B12, folate, lupus anticoagulant, antiphospholipid ab, cardiolipin ab, ANCA with reflex, C3/C4, cryoglobulins, SPEP with immunofixation, Hep C Dr. Modi of gen surg to obtain skin biopsy tomorrow Possible mild cellulitic process but given cefepime, vanco in ED, plan to continue abx for now 11/01 Rheum consulted- ROGE 9, CK ordered Gen Surg consulted- for skin biopsy Cellulitis of right lower limb continue IV Vanco + Cefepime MRI R foot ordered Blood culture: pending Poor appetite, nausea Severe protein-calorie malnutrition In setting of above. Underweight with BMI 17.5 unchanged from admission last year Photoradio Operator consult placed Antiemetics as needed Acute kidney injury Cr 1.16 (baseline ~ 0.85), likely a pre-renal component. UA pending, continue to trend resolved HTN Documented in chart as a chronic issue but not compliant with medication Hypothyroidism Noted as a previous issue but not compliant with medication. TSH normal Alcohol use disorder Regularly consumes 4 cans of beer daily but has not been drinking for 5 days due to feeling poorly No s/sx of withdrawal at this time, can add withdrawal protocol as needed Tobacco use Endorses 1/4 ppd. Smoking cessation DVT Ppx: SCDs for now Code status: FULL PCP: Hay Dispo: pending will order PT/OT Admission and Anticipated Discharge Date Admission Date: October 31, 2022 Subjective ff up for purpuric rash, R foot cellulitis, etc seen resting in bed, comfortable states he feels slightly better than yesterday feels tired has dyspnea on exertion no chest pain, palpitations, dizziness has right foot pain reports melena at home no other new symptoms Review of Systems Review of Systems: all noted and negative except for above Physical Exam Physical Exam: General- oriented x 3, not in distress, speaks in sentences with no effort or accessory muscle use Head- atraumatic Eyes- PERRL, EOMI, anicteric ENT- oropharynx clear Neck- supple, no JVD, no adenopathy, no thyromegaly; carotids +2/2, no bruits appreciated Lungs- clear to auscultation bilaterally, no rales/wheezes Heart- normal rate, regular rhythm; no murmur, no gallop, no rub appreciated Abdomen- normal bowel sounds, nondistended, soft, nontender, no masses or hepatosplenomegaly Extremities- no pretibial edema, no calf tenderness; peripheral pulses intact R foot: (+) erythema, mild edema, warmth on the medial R ankle/heel healing wound, no discharge Neuro- alert, oriented x 3; CN 2-12 grossly intact; motor 5/5 bilaterally;sensation 100% on all extremities; no other gross focal neurologic deficits Skin- warm & dry (+) purpuric rash on BL UE < LE Results & Data Results & Data Vital Signs (Past 12 Hours) Vital Signs Temp Pulse Pulse Resp BP BP Pulse Ox 11/01/22 11:55 36.5 C 67 18 107/65 100 11/01/22 10:55 36.3 C L 71 18 122/71 100 11/01/22 10:25 36.7 C 68 18 92/51 L 100 11/01/22 10:02 36.9 C 67 18 106/63 100 11/01/22 08:26 36.9 C 67 18 130/65 99 11/01/22 04:14 36.9 C 69 18 112/69 99 O2 Del Method 11/01/22 11:55 11/01/22 10:55 11/01/22 10:25 11/01/22 10:02 11/01/22 08:26 Room Air 11/01/22 04:14 Room Air all noted and reviewed including below
[2022-11-01 14:54] LABS: Appearance Urine Clear (Clear); Bacteria Urine Automated Negative (Negative); Blood Urine Negative (Negative); Color Urine Orange; Epithelial Cell Urine Auto 0-5 /lpf (0-5); Glucose Urine UA Negative (Negative); Ketones Urine 1+ (Negative); Leukocyte Esterase Urine Trace (Negative); Nitrite Urine Positive (Negative); Protein Urine Trace (Negative); RBC Urine Automated 0-4 /hpf (0-4); Specific Gravity Urine 1.035 (1.000-1.030); Urobilinogen Urine Negative (Negative)
[2022-11-01 14:56] LABS: Bilirubin Urine 1+ (Negative)
--- NOTE | 2022-11-01 16:30 | Rheumatology Consultation ---
Rheumatology Consultation DOS November 01, 2022 Requesting Physician Romina Dela Cruz Reason for Consultation Concern for vasculitis Assessment & Plan (1) Vasculitis: Interesting case The intense discoloration and induration at the right lower extremity is likely a manifestation of cellulitis especially with the skin breakdown seen at the medial aspect of the ankle area However, he has additional skin lesions on the legs and arms with a combination of smaller lesions (consistent with the petechia like rash) as well as larger crops consistent with purpuric type rash Currently, do not identify evidence of pulmonary or renal involvement to suggest a systemic vasculitic process based on chest x-ray, history and current lab data. He had occasional dry cough but no hemoptysis and his shortness of breath is most likely secondary to his profound anemia and to a degree, his pulmonary hypertension Awaiting additional diagnostic data including biopsy I have concerns about his nutritional status based on his poor dentition, low albumin and overall disheveled type appearance with poor nail care and poor hygiene. Vitamin C deficiency can cause skin changes that we see on his legs and arms I do not identify an urgent need for immunosuppression based on data available currently as we do not have evidence of organ threatening disease such as progressive renal decline, progressive pulmonary status, etc. linked to active vasculitic change and we are primarily seeing visual changes at the skin level. His anemia is noted and we will continue to monitor for associations and connections between the skin and his anemia (such as malignancy) (2) Cellulitis of right lower extremity: Agree with antibiotic use and continued monitoring of response to abx treatment (3) Anemia: Further workup and evaluation by hospitalist team to determine etiology (4) Leg pain, bilateral: Leg pain is noted and difficult to fully assess strength while in bed Check CK Could be related to deconditioning and poor nutritional status (5) Oral lesion: Recommend evaluation of this lesion to determine if biopsy is required. Suspect this can be accomplished in an outpatient setting Plan Please check vitamin C level (if this is possible here), especially if he has not had any ascorbic acid supplementation and add vitamin C suppl if levels are low or even low normal Continue antibiotics Await additional lab testing which is currently pending Await biopsy results (I was told biopsy is planned) Follow renal function. Urinalysis did not show excess of blood or protein and looks to be concentrated specimen Currently, no indication to proceed with aggressive steroids or immunosuppressive agents With his mild leukopenia (this can have many etiologies) and the rash, please order ROGE profile 9 with next blood draw. This panel may take 7 to 10 days to come back. Outpatient follow-up with oral surgeon to consider biopsy of oral lesion Check CK with next lab draw History of Present Illness Attending Physician: Isaiah Tripp MD History of Present Illness This is a 57-year-old man who presented to the hospital yesterday with worsening pain and redness involving his right lower extremity. Patient reports that a year ago, he had a similar event happen requiring him to present to the hospital at which time he received antibiotics and a day or 2 later, symptoms improved and he was discharged to home. About 2 and half weeks ago, he felt as if he bumped his right lower extremity on something and he began noticing redness as well as a black and blue discoloration. A day or 2 after the onset of symptoms involving the right foot area, he began having a bump at the left leg which began to become black and blue as well according to the patient. Over the past week or week and a half, he has had difficulty with walking secondary to feeling lightheaded and dizzy when he would get up from a seated position. He also has been experiencing difficulty with shortness of breath with exertion. He has had a bit of a dry cough from time to time but denies hemoptysis. He indicates that at times he feels he may have blood in the urine. He denies fevers. He has noted difficulty with nausea while brushing his teeth for the past week and a half. He has had decreased appetite. He denies diarrhea or constipation but admits that he had episode of dark stool earlier this morning in the hospital setting. He denies new medications prior to the onset of lower extremity skin changes and denies any recent illness prior to the onset of the symptoms. He denies joint swelling. Allergies Allergy/AdvReac Type Severity Reaction Status Date / Time No Known Allergies Allergy Verified 12/21/21 13:04 Home Medications Medication Instructions Recorded Confirmed Type No Known Home Medications 10/31/22 10/31/22 History Patient History Medical History Alcohol use HTN (hypertension) Hypothyroidism Left inguinal hernia Osteoarthritis Tobacco use Vitamin D deficiency Surgical History H/O left inguinal hernia repair History of tooth extraction S/P left inguinal hernia repair Family History Father Myocardial infarction Coronary heart disease Mother No problems noted. Sister No problems noted. Grandmother (Maternal) Diabetes Social History Smoking Status: Light tobacco smoker Cigarettes Per Day: 3-4; Second Hand Exposure: No; Do You Dip or Chew Tobacco: No; Hx Alcohol Use: Yes Alcohol type: beer Hx Substance Use: No Preferred Language: Thai Communication Ability: Effective Opal Polisher Required: No Beliefs That Will Affect Care: None Current Living Situation: Alone Feels Safe at Home: Yes Assistive Devices: None Review of Systems Review of Systems: He denies fevers or constipation. Shortness of breath with exertion. Lightheaded and dizziness with change of position such as standing up from a seated position. Denies hemoptysis. Occasional dry cough. Occasional nausea especially worse with brushing teeth. Reduced appetite. He has had some pain in his legs, mainly the thighs. Physical Exam Physical Exam: General: No acute distress. Disheveled and poor hygiene Eyes: Pupils are equal. Extraocular muscles intact. Mouth: Poor dentition, caries. Also appears to have a soft tissue lesion right lower gumline, inner aspect of tooth line. Neck: Supple, no adenopathy. Soft tissue lesion right submental region Cardiovascular: Heart regular, no rubs Pulmonary: Clear to auscultation bilaterally Abdomen: Soft, nontender. Positive bowel sounds. Extremities: No pitting edema noted. Significant nail overgrowth noted at the toes as well as dystrophic nails noted bilateral fingers. DP pulse palpable bilateral lower extremities and more readily palpable right side compared to left. Skin: Significant induration and dark, reddish discoloration of the skin mainly right medial and anterior lower leg. There is skin breakdown medial ankle area which looks like old laceration. There is evidence of petechiae as well as purpuric type lesions extending into the thighs and arm areas. There are some faint brown discolored lesions on the palms mainly around 2 to 3 mm. Musculoskeletal: No synovitis. No effusions. Tenderness when palpating thigh musculature. Patient is able to raise legs off the bed against resistance and appears to have better strength on the right side. Compression of gastrocnemius muscles revealed less discomfort according to patient. Results & Data Vital Signs (Past 12 Hours) Vital Signs Temp Pulse Pulse Resp BP BP Pulse Ox 11/01/22 15:26 36.9 C 53 L 18 162/72 H 92 11/01/22 11:55 36.5 C 67 18 107/65 100 11/01/22 10:55 36.3 C L 71 18 122/71 100 11/01/22 10:25 36.7 C 68 18 92/51 L 100 11/01/22 10:02 36.9 C 67 18 106/63 100 11/01/22 08:26 36.9 C 67 18 130/65 99 11/01/22 04:14 36.9 C 69 18 112/69 99 O2 Del Method 11/01/22 15:26 Room Air 11/01/22 11:55 11/01/22 10:55 11/01/22 10:25 11/01/22 10:02 11/01/22 08:26 Room Air 11/01/22 04:14 Room Air Diagnostic Findings Reviewed results of lower extremity arterial Doppler: No obvious occlusive disease identified Echo report indicated elevated estimated right sided pressure indicative of pulmonary hypertension Chest x-ray from 10/31/2022 indicates no pneumonia or acute process Right foot x-ray from 10/31/2022 indicates no acute process without evidence of subcutaneous gas Results CMP Results: Na 134 mmol/L (136-145) L 11/01/22 K 3.8 mmol/L (3.5-5.1) 11/01/22 Cl 111 mmol/L (98-107) H 11/01/22 CO2 17 mmol/L (21-32) L 11/01/22 Anion Gap 6 (3-11) 11/01/22 BUN 14 mg/dl (6-23) 11/01/22 Creatinine 0.97 mg/dl (0.6-1.4) 11/01/22 Estimated GFR ( Amer) 99.3 ml/min 11/01/22 Estimated GFR (Non-Af Amer) 85.7 ml/min 11/01/22 BUN/Creatinine Ratio 14.4 (10-20) 11/01/22 Glu 106 mg/dl (70-99(Fasting)) H 11/01/22 Ca 7.9 mg/dl (8.6-10.3) L 11/01/22 Total Bilirubin 1.8 mg/dl (0.2-1.0) H 11/01/22 Direct Bilirubin 0.4 mg/dl (0-0.2) H 11/01/22 AST 12 U/L (13-39) L 11/01/22 ALT 6 U/L (7-52) L 11/01/22 Alkaline Phosphatase 42 U/L (34-104) 11/01/22 TP 5.5 gm/dl (6.0-8.3) L 11/01/22 Albumin 2.5 gm/dl (3.4-5.0) L 11/01/22 Globulin 3.0 gm/dl (2.5-4.0) 11/01/22 Albumin/Globulin Ratio 0.8 (0.9-2) L 11/01/22 Lactate Dehydrogenase 125 U/L (86-244) 11/01/22 Results Rheum Results - ESR: ESR 33 mm/hr (0-20) H 10/31/22 14:40 Results Rheum Results - CRP: CRP 9.35 mg/dl (0-0.5) H 10/31/22 13:57 Results Urinalysis: Urine Color Josephine 11/01/22 Urine Appearance Clear (Clear) 11/01/22 Urine pH 5.0 (4.5-7.5) 11/01/22 Ur Specific [place] 1.035 (1.000-1.030) H 11/01/22 Urine Protein Trace (Negative) H 11/01/22 Urine Glucose (UA) Negative (Negative) 11/01/22 Urine Ketones 1+ (Negative) H 11/01/22 Urine Blood Negative (Negative) 11/01/22 Urine Nitrite Positive (Negative) A 11/01/22 Urine Bilirubin 1+ (Negative) H 11/01/22 Urine Urobilinogen Negative (Negative) 11/01/22 Ur Leukocyte Esterase Trace (Negative) H 11/01/22 Urine WBC (Auto) 1-5 /hpf (0-5) 11/01/22 Urine RBC (Auto) 0-4 /hpf (0-4) 11/01/22 Urine Hyaline Casts (Auto) 5-10 /lpf (0-5) H 11/01/22 Urine Epithelial Cells (Auto) 0-5 /lpf (0-5) 11/01/22 Urine Bacteria (Auto) Negative (Negative) 11/01/22 Urine Culture: No Data to Display Results CBC w Diff Results: RBC 2.02 M/uL (4.70-6.10) L 11/01/22 WBC 4.00 K/ul (4.8-10.8) L 11/01/22 Hgb 6.5 g/dl (14.0-18.0) L* 11/01/22 Hct 19.6 % (42.0-52.0) L* 11/01/22 MCV 100.5 fL (80.0-100.0) H 11/01/22 MCH 33.2 pg (25.0-34.0) 11/01/22 MCHC 33.0 g/dL (32.0-36.0) 11/01/22 RDW Standard Deviation 45.6 fL (36.4-46.3) 11/01/22 RDW Coefficient of Variation 12.5 % (11.5-14.5) 11/01/22 Plt Count 173 K/uL (130-400) 11/01/22 MPV 11.0 fL (9.4-12.4) 11/01/22 Neutrophils (%) (Auto) 64.9 % 10/31/22 Lymphocytes (%) (Auto) 21.8 % 10/31/22 Monocytes # (Auto) 0.54 K/uL (0.11-0.59) 10/31/22 Eosinophils # (Auto) 0.03 K/uL (0-0.50) 10/31/22 Immature Granulocyte % (Auto) 0.4 % 10/31/22 Neutrophils # (Auto) 3.10 K/uL (1.40-6.50) 10/31/22 Lymphocytes # (Auto) 1.04 K/uL (1.2-3.4) L 10/31/22 Monocytes # (Auto) 0.54 K/uL (0.11-0.59) 10/31/22 Eosinophils # (Auto) 0.03 K/uL (0-0.50) 10/31/22 Basophils # (Auto) 0.05 K/uL (0-0.2) 10/31/22 Immature Granulocyte # (Auto) 0.02 K/uL (0.01-0.20) 3 Polychromasia 1+ 12/22/21 PG Care Time/CCT Total # of Minutes Spent Total Time Spent with Patient: Total time spent is greater than 50% in coordination of care (as documented) at patient's floor/unit and/or counseling patient including chart review and documenting in the EMR:70 Coding Level of Care Code 11361 IN/OBS CONSULT LVL 4,60M Diagnoses Vasculitis I77.6 Cellulitis of right lower extremity L03.115 Anemia D64.9 Leg pain, bilateral M79.604; M79.605 Oral lesion K13.70
--- NOTE | 2022-11-01 17:04 | Communication Note ---
Date of Service: November 01, 2022 Patient not seen in consult today, chart reviewed. Patient has bilateral lower extremity rash. Our services consulted for possible punch vs wedge biopsy. Hemoglobin down to 6.5 today and getting 1 unit PRBCs. Would not recommend any biopsy until patient better stabilized. Would consider outpatient biopsy. Discussed with Dr. Tripp
[2022-11-01] MEDS: PANTOprazole 40 MG in SYRINGE 0 ML IV SCH (20:12)
[2022-11-01] MEDS ORDERED: MELATONIN 3 MG TAB PO PRN (23:43)
--- NOTE | 2022-11-01 23:54 | Magnetic Resonance Report ---
Exam(s): MRI RIGHT ANKLE Without Contrast EXAM: MR Right Lower Extremity Without Intravenous Contrast, Ankle CLINICAL HISTORY: Reason for exam: RT MEDIAL HEEL WOUND, R/O OSTEOMYELITIS. TECHNIQUE: Multiplanar magnetic resonance images of the right ankle without intravenous contrast. COMPARISON: No relevant prior studies available. FINDINGS: LIGAMENTS: Anterior talofibular: Unremarkable. Posterior talofibular: Unremarkable. Anterior tibiofibular: Unremarkable. Posterior tibiofibular: Unremarkable. Calcaneofibular: Unremarkable. Deltoid: Unremarkable. Spring: Unremarkable. Lisfranc: Unremarkable. TENDONS: Achilles: Unremarkable. Flexor: Unremarkable. Extensor: Unremarkable. Peroneal: Unremarkable. Tibialis anterior: Unremarkable. Tibialis posterior: Unremarkable. Muscles: Unremarkable. Fluid: Unremarkable. No joint effusion. Sinus tarsi: Unremarkable. Tarsal tunnel: Unremarkable. Plantar fascia: Unremarkable. Cartilage/Bones: Osteochondral lesion within the medial talar dome measuring 8 x 10 mm with subjacent marrow edema. No articular collapse. Remainder of the bones are normal in appearance. No osteomyelitis. No acute fracture. IMPRESSION: 1. Osteochondral lesion within the medial talar dome. Electronically signed by: Adeel Sherwood MD 11/01/22 23:53 PM
--- NOTE | 2022-11-02 05:36 | Consultation ---
Date of Consultation November 01, 2022 Assessment & Plan (1) Anemia: Patient has had an evolving anemia since November of last year with an acute drop during rehydration this admission. MCVs have been borderline high normal to mildly elevated, white count is mildly depressed primarily as a mild lymphopenia and his platelet counts have been normal. Although he did have some mild elevation of creatinine on admission that it seems to be stabilizing, ferritin is technically high normal at 320.3 though low iron and normal unsaturated iron binding capacity imply a decreased percent saturation. Albumin is markedly depressed at 2.5 B12 is technically normal at 292 as is folate at 9.35 and his TSH is in the high normal range at 4.149 Reticulocyte count is only marginally elevated at 0.13, peripheral smear review by pathology is primarily significant for macrocytosis, there were no significant increase in schistocytes, spherocytes, no nucleated red blood cells, no rouleaux or red cell agglutination. Morphologically granulocytes appear unremarkable and there are no circulating immature myeloid precursors or blasts. Similarly there are no unusual features to the monocytes and lymphocytes other than the mild lymphopenia. Platelets are normal without unusual forms. Rare plasma cell in the circulation was noted. While reticulocyte count is mildly elevated, expressed as a percent it is artifactually elevated and in fact when "corrected" for the denominator hemoglobin and for the early release of reticulocytes it probably is functionally more in the 2 to 3% range which could be more hr representative of attempted erythropoietic recovery than of pathologic analysis.. Expressed as an absolute number it is only marginally above the upper normal. Bilirubin is mildly elevated and haptoglobin is pending and there may be some element of hemolysis but the lack of schistocytes and spherocytes is notable and he certainly does not seem to have a picture of a microangiopathic process with normal creatinines and lack of such abnormal forms. Moreover, type and cross did not identify any Red cell antibody. While technically his ferritin is normal this could be spurious as an acute phase reactant and I imagine that he has some element of iron depletion/early deficiency. He does describe some low-level hematochezia and may well have been losing blood for some time. At some point, at least a colonoscopy could be worthwhile though not an emergent requirement. Alcohol use can cause marrow to xicity and macrocytosis that may be indeed offsetting any microcytosis that would come from iron deficiency though the lack of rebound thrombocytosis is also notable. B12, folic acid, TSH are all in normal range though supplementation of his folic acid especially as well as B12 would be prudent given any rebound hematopoiesis may quickly deplete him of folic acid at least. The acute change in hemoglobin on admission is probably more reflective of rehydration than any major Red cell destruction or new loss. He undoubtedly has an element of inflammation associated with his rash with which would lead to some inflammatory suppression of hematopoiesis and especially of erythropoiesis, He is significantly nutritionally depleted, however, and that lack of protein may also figure into his impaired erythropoiesis. Finally, lymphopenia does raise the concern over possible HIV infection and that would be worthwhile screening if he would consent. Await haptoglobin for better assessment as to ongoing hemolysis but focus would probably be on supportive measures to start. Specifically transfusion to raise his hemoglobin above 7.5 g/dL range, his response to transfusion should help better differentiate hypoproductive anemia from clinically significant hemolysis. Bone marrow aspiration and biopsy could be helpful in more definitively assessing iron stores and in identifying any inherent subtle dysplastic changes or molecular rearrangements, but would not affect immediate management. Rather, would identify and treat the cause of his skin rash, optimize his nutrition, and then if there is lack of good response consider marrow at that time (2) Rash: Probably more on the rheumatology and/or ID spectrum and would certainly follow- up on the skin biopsy and the rheumatology workup suggested. This does not have any similarity to any paraneoplastic syndromes with which I am familiar (3) Nutrition disorder: Certainly seems markedly nutritionally depleted and it will be critical try to try to work on that. Not clear if that is purely a consequence of the social circumstances or perhaps hr representative of an inherent issue. Given his tobacco history, CT scans of the chest/abdomen/pelvis might be worthwhile to assess for occult lung, pancreatic, or other malignancy. He does not describe major changes in bowel habits but does have some low-level hematochezia and a colonoscopy in time could also be worthwhile. As above, HIV screening should also be considered Plan 1. Transfuse to maintain hemoglobin above 7.5 g/dL, response to transfusion will help to further differentiate hemolysis versus hypoproductive anemia as well his haptoglobin 2. Difficult to stock analyst the extent to which he is iron depleted with elevated ferritin that may be spurious. May be worthwhile to give at least 1 dose of Venofer 300 mg 3. Despite the "normal" levels would certainly aggressively replete folic acid and as well consider repeating B12 4. Would push more broadly for aggressive nutritional repletion overall particularly protein repletion 5. Would be worthwhile to consider CT scans of the chest and abdomen looking for occult tobacco related malignancy that may be contributing to anorexia/weight loss. Consider colonoscopy in time 6. Will need to reform him of alcohol use as best as possible 7. If he will consent would consider HIV screen 8. Await serum protein electrophoresis to see if rare circulating plasma cell has any significance 9. In the absence of a significantly positive serum protein electrophoresis or unexpected marked splenomegaly or pathologic adenopathy, marrow aspiration and biopsy would not likely change immediate management and can be deferred until he is more completely recovered 10. Empiric treatment and further diagnostic approach to his rash as per hospitalist and rheumatology services. History of Present Illness Reason for Consultation: Severe anemia with abnormal red blood cell forms Attending Physician: Isaiah Tripp MD History of Present Illness Please see detailed in the admission history and physical and especially in the rheumatology consultation. 57-year-old gentleman who is on disability and has long-term significant nutritional depletion. Retrospectively he reports that he had what he felt was a similar rash 1 year ago that ultimately improved on antibiotics. He has had no specific rheumatologic diagnosis, malignant diagnosis, nor has he had particular attention called to any blood disorders previously. There is no unusual family history of any of those illnesses He is a smoker formally half pack per day currently 1/4 pack/day he drinks 4-5 beers per day but because he has been ill in recent days he had not had alcohol in the several days leading up to his admission He is admitted with an evolving rash particularly in the feet and legs with discoloration to a dark/red-purple more diffusely peripherally but with a more discrete maculopapular rash above the ankle. There is some discoloration of the distal arms but without the degree of maculopapular rash. He describes some dyspeptic like symptoms, nausea, loss of appetite and has not been eating and drinking as well. He has not had rasheed hematemesis. He describes some intermittent melena he feels that this is just like hemorrhoidal bleeding he has not had gross melena or hematochezia. He indicates that he has not been anywhere where he thought it was highly likely that he could have had an insect bite. He had no new medications, no unusual exposures that he can relate. Patient is on disability from an old foot injury. 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 He did not serve in the armed services retrospectively he had normal hemoglobins in 2018 though already by November that year there was somewhat of a downward trend he did have a mild macrocytosis. White counts have been relatively normal until November of last year at which point he also had a more significant drop in hemoglobin which has persisted until this admission. MCV's have been normal to borderline elevated and platelet counts have been normal. We note a mild lymphopenia but normal neutrophil counts. Reticulocyte count is only marginally elevated at reticulocyte #0.13 He does have an additional history of hypertension hypothyroidism Allergies Allergy/AdvReac Type Severity Reaction Status Date / Time No Known Allergies Allergy Verified 12/21/21 13:04 Home Medications Medication Instructions Recorded Confirmed Type No Known Home Medications 10/31/22 10/31/22 History Patient History Medical History Alcohol use HTN (hypertension) Hypothyroidism Left inguinal hernia Osteoarthritis Tobacco use Vitamin D deficiency Surgical History H/O left inguinal hernia repair History of tooth extraction S/P left inguinal hernia repair Family History Father Myocardial infarction Coronary heart disease Mother No problems noted. Sister No problems noted. Grandmother (Maternal) Diabetes Social History Smoking Status: Light tobacco smoker Cigarettes Per Day: 3-4; Second Hand Exposure: No; Do You Dip or Chew Tobacco: No; Hx Alcohol Use: Yes Alcohol type: beer Hx Substance Use: No Preferred Language: Upper Sorbian Communication Ability: Effective Junior Software Developer Required: No Beliefs That Will Affect Care: None Current Living Situation: Alone Feels Safe at Home: Yes Assistive Devices: None Physical Exam Physical Exam: Modest decrease in Brech pressure but overall vital signs are stable On exam he is alert and seems calm. He answers questions in straightforward and appropriate fashion though there is a suggestion of at least a subtle memory and cognitive defect. He has no gross tremor or major focal neurological changes. Skin changes are as described in his present illness. We also note some degeneration of the nails bilaterally. He has poor dentition but otherwise HEENT exam is unremarkable. There are no grossly palpable pathologic lymph nodes in the submandibular cervical supraclavicular axillary region. Lungs seem clear percussion auscultation without focal rubs rales or wheezes cardiac rhythm seems regular without pathological murmur the abdomen is somewhat scaphoid but there is no mass or hepatomegaly Results & Data Vital Signs (Past 12 Hours) Vital Signs Temp Pulse Pulse Resp BP BP Pulse Ox 11/01/22 19:57 36.2 C L 67 18 115/60 100 11/01/22 15:26 36.9 C 53 L 18 162/72 H 92 11/01/22 11:55 36.5 C 67 18 107/65 100 11/01/22 10:55 36.3 C L 71 18 122/71 100 11/01/22 10:25 36.7 C 68 18 92/51 L 100 11/01/22 10:02 36.9 C 67 18 106/63 100 O2 Del Method 11/01/22 19:57 Room Air 11/01/22 15:26 Room Air 11/01/22 11:55 11/01/22 10:55 11/01/22 10:25 11/01/22 10:02 Laboratory Results Laboratory Results - last 24 hr 10/31/22 10/31/22 11/01/22 14:39 17:03 05:54 WBC RBC Hgb Hct MCV MCH MCHC RDW Std Deviation RDW Coeff of Cordell Plt Count MPV Reticulocyte % (Auto) Reticulocyte # Peripher Smr Path Cons Haptoglobin Sodium Potassium Chloride Carbon Dioxide Anion Gap BUN Creatinine Est Cr Clr Drug Dosing Est GFR ( Amer) Est GFR (Non-Af Amer) BUN/Creatinine Ratio Glucose Calcium Magnesium Iron Total Bilirubin Direct Bilirubin AST ALT Alkaline Phosphatase Lactate Dehydrogenase Total Protein Albumin Globulin Albumin/Globulin Ratio TSH Urine Color Urine Appearance Urine pH Ur Specific Herald Urine Protein Urine Glucose (UA) Urine Ketones Urine Blood Urine Nitrite Urine Bilirubin Urine Urobilinogen Ur Leukocyte Esterase Urine WBC (Auto) Urine RBC (Auto) U Hyaline Cast (Auto) U Epithel Cells (Auto) Urine Bacteria (Auto) Cryoglobulin Pending Cryoglobulin Cryocrit Pending RPR Nonreactive Blood Type A Negative Blood Type Recheck Antibody Screen NEGATIVE Crossmatch See Detail 11/01/22 11/01/22 11/01/22 05:54 05:54 05:54 WBC 4.00 L RBC 2.02 L Hgb 6.7 L* Hct 20.3 L* MCV 100.5 H MCH 33.2 MCHC 33.0 RDW Std Deviation 45.6 RDW Coeff of Cordell 12.5 Plt Count 173 MPV 11.0 Reticulocyte % (Auto) 6.5 H Reticulocyte # 0.13 H Peripher Smr Path Cons Haptoglobin Sodium 134 L Potassium 3.8 Chloride 111 H Carbon Dioxide 17 L Anion Gap 6 BUN 14 Creatinine 0.97 Est Cr Clr Drug Dosing 69.7 Est GFR ( Amer) 99.3 Est GFR (Non-Af Amer) 85.7 BUN/Creatinine Ratio 14.4 Glucose 106 H Calcium 7.9 L Magnesium 3.0 H Iron Total Bilirubin 1.8 H Direct Bilirubin 0.4 H AST 12 L ALT 6 L Alkaline Phosphatase 42 Lactate Dehydrogenase Total Protein 5.5 L D Albumin 2.5 L Globulin 3.0 Albumin/Globulin Ratio 0.8 L TSH 4.149 Urine Color Urine Appearance Urine pH Ur Specific Herald Urine Protein Urine Glucose (UA) Urine Ketones Urine Blood Urine Nitrite Urine Bilirubin Urine Urobilinogen Ur Leukocyte Esterase Urine WBC (Auto) Urine RBC (Auto) U Hyaline Cast (Auto) U Epithel Cells (Auto) Urine Bacteria (Auto) Cryoglobulin Cryoglobulin Cryocrit RPR Blood Type Blood Type Recheck Antibody Screen Crossmatch 11/01/22 11/01/22 11/01/22 05:54 05:54 05:54 WBC RBC Hgb Hct MCV MCH MCHC RDW Std Deviation RDW Coeff of Cordell Plt Count MPV Reticulocyte % (Auto) Reticulocyte # Peripher Smr Path Cons Haptoglobin Pending Sodium Potassium Chloride Carbon Dioxide Anion Gap BUN Creatinine Est Cr Clr Drug Dosing Est GFR ( Amer) Est GFR (Non-Af Amer) BUN/Creatinine Ratio Glucose Calcium Magnesium Iron 21 L Total Bilirubin Direct Bilirubin AST ALT Alkaline Phosphatase Lactate Dehydrogenase 125 Total Protein Albumin Globulin Albumin/Globulin Ratio TSH Urine Color Urine Appearance Urine pH Ur Specific Herald Urine Protein Urine Glucose (UA) Urine Ketones Urine Blood Urine Nitrite Urine Bilirubin Urine Urobilinogen Ur Leukocyte Esterase Urine WBC (Auto) Urine RBC (Auto) U Hyaline Cast (Auto) U Epithel Cells (Auto) Urine Bacteria (Auto) Cryoglobulin Cryoglobulin Cryocrit RPR Blood Type Blood Type Recheck Antibody Screen Crossmatch 11/01/22 11/01/22 11/01/22 07:00 07:00 Unknown WBC RBC Hgb 6.5 L* Hct 19.6 L* MCV MCH MCHC RDW Std Deviation RDW Coeff of Cordell Plt Count MPV Reticulocyte % (Auto) Reticulocyte # Peripher Smr Path Cons Haptoglobin Sodium Potassium Chloride Carbon Dioxide Anion Gap BUN Creatinine Est Cr Clr Drug Dosing Est GFR ( Amer) Est GFR (Non-Af Amer) BUN/Creatinine Ratio Glucose Calcium Magnesium Iron Total Bilirubin Direct Bilirubin AST ALT Alkaline Phosphatase Lactate Dehydrogenase Total Protein Albumin Globulin Albumin/Globulin Ratio TSH Urine Color [place] Urine Appearance Clear Urine pH 5.0 Ur Specific Herald 1.035 H Urine Protein Trace H Urine Glucose (UA) Negative Urine Ketones 1+ H Urine Blood Negative Urine Nitrite Positive A Urine Bilirubin 1+ H Urine Urobilinogen Negative Ur Leukocyte Esterase Trace H Urine WBC (Auto) 1-5 Urine RBC (Auto) 0-4 U Hyaline Cast (Auto) 5-10 H U Epithel Cells (Auto) 0-5 Urine Bacteria (Auto) Negative Cryoglobulin Cryoglobulin Cryocrit RPR Blood Type Blood Type Recheck A Negative Antibody Screen Crossmatch Diagnostic Findings Ankle X-Ray 10/31/22 14:16 XR ankle RT min 3V routine CLINICAL HISTORY: Right ankle medial infection. COMPARISON STUDY: Right ankle 12/21/2021. FINDINGS: Soft tissue swelling within the ankle most pronounced medially. No fracture or dislocation. No bony destruction to suggest an osteomyelitis. No radiopaque foreign bodies. The bones are slightly osteopenic. IMPRESSION: Soft tissue swelling within the right ankle. No underlying bony abnormality. ACT 112: Negative or not required by law. Electronically signed by: Omega Bright M.D. 10/31/2022 3:08 PM Chest X-Ray 10/31/22 14:16 XR chest 1V portable CLINICAL HISTORY: sepsis workup TECHNIQUE: Single frontal radiograph of the chest was obtained. Comparison: Comparison is made to chest radiograph 04/28/2007 FINDINGS: No lines and tubes are seen. The cardiomediastinal silhouette is normal. The lungs are clear. No evidence of pleural effusion or pneumothorax. IMPRESSION: No acute abnormalities and in particular no radiographic evidence of pneumonia. ACT 112: Negative or not required by law. Electronically signed by: Jacinto Rick M.D. 10/31/2022 2:41 PM Foot X-Ray 10/31/22 14:16 RIGHT FOOT 3 VIEWS CLINICAL HISTORY: Infection. FINDINGS: 3 views of the right foot are obtained. No prior studies are available for comparison at the time of dictation. The skeletal structures are heterogeneously osteopenic. No fracture is seen. Minimal arthritic change is noted in the foot. No bony erosion or periostitis is identified. Minimal soft tissue swelling is suggested. No soft tissue gas or radiodense foreign body is seen. IMPRESSION: No acute bony abnormality is identified. Electronically signed by: Kaz Portillo M.D. 10/31/2022 2:43 PM Duplex Scan Lower Extremity Artery 10/31/22 16:47 Exam(s): US ARTERIAL BILATERAL LOWER EXTREMITIES EXAM: US Duplex Bilateral Lower Extremities Arteries CLINICAL HISTORY: Reason for exam: skin changes more priminent L medial ankle. TECHNIQUE: Real-time duplex ultrasound scan of the bilateral lower extremity arteries integrating B-mode two-dimensional vascular structure, Doppler spectral analysis and color flow Doppler imaging. COMPARISON: No relevant prior studies available. FINDINGS: Right common femoral artery: No acute findings. No occlusion or significant stenosis on color flow and spectral Doppler imaging. Normal waveform. Right superficial femoral artery: No acute findings. No occlusion or significant stenosis on color flow and spectral Doppler imaging. Normal waveform. Right popliteal artery: No acute findings. No occlusion or significant stenosis on color flow and spectral Doppler imaging. Normal waveform. Right calf/foot arteries: No acute findings. No occlusion or significant stenosis on color flow and spectral Doppler imaging. Normal waveform. Left common femoral artery: No acute findings. No occlusion or significant stenosis on color flow and spectral Doppler imaging. Normal waveform. Left superficial femoral artery: No acute findings. No occlusion or significant stenosis on color flow and spectral Doppler imaging. Normal waveform. Left popliteal artery: No acute findings. No occlusion or significant stenosis on color flow and spectral Doppler imaging. Normal waveform. Left calf/foot arteries: No acute findings. No occlusion or significant stenosis on color flow and spectral Doppler imaging. Normal waveform. Soft tissues: Unremarkable. IMPRESSION: Normal bilateral lower extremity duplex arterial ultrasound. Electronically signed by: Darshan Gagnon MD 10/31/22 23:33 PM Ankle MRI 11/01/22 17:09 Exam(s): MRI RIGHT ANKLE Without Contrast EXAM: MR Right Lower Extremity Without Intravenous Contrast, Ankle CLINICAL HISTORY: Reason for exam: RT MEDIAL HEEL WOUND, R/O OSTEOMYELITIS. TECHNIQUE: Multiplanar magnetic resonance images of the right ankle without intravenous contrast. COMPARISON: No relevant prior studies available. FINDINGS: LIGAMENTS: Anterior talofibular: Unremarkable. Posterior talofibular: Unremarkable. Anterior tibiofibular: Unremarkable. Posterior tibiofibular: Unremarkable. Calcaneofibular: Unremarkable. Deltoid: Unremarkable. Spring: Unremarkable. Lisfranc: Unremarkable. TENDONS: Achilles: Unremarkable. Flexor: Unremarkable. Extensor: Unremarkable. Peroneal: Unremarkable. Tibialis anterior: Unremarkable. Tibialis posterior: Unremarkable. Muscles: Unremarkable. Fluid: Unremarkable. No joint effusion. Sinus tarsi: Unremarkable. Tarsal tunnel: Unremarkable. Plantar fascia: Unremarkable. Cartilage/Bones: Osteochondral lesion within the medial talar dome measuring 8 x 10 mm with subjacent marrow edema. No articular collapse. Remainder of the bones are normal in appearance. No osteomyelitis. No acute fracture. IMPRESSION: 1. Osteochondral lesion within the medial talar dome. Electronically signed by: Adeel Sherwood MD 11/01/22 23:53 PM PG Care Time/CCT Total # of Minutes Spent Total Time Spent with Patient: Total time spent is greater than 50% in coordination of care (as documented) at patient's floor/unit and/or counseling patient: Coding Level of Care Code 80452 IN/OBS CONSULT LVL 4,60M Diagnoses Anemia D64.9 Rash R21 Nutrition disorder E63.9
[2022-11-02] MEDS: CEFEPIME 2,000 MG in SYRINGE 0 ML IV SCH ×2 (08:15→15:49)
[2022-11-02] MEDS: PANTOprazole 40 MG in SYRINGE 0 ML IV SCH ×2 (08:15→20:17)
[2022-11-02] MEDS: CYANOCOBALAMIN (B-12) 500 MCG TABLET PO SCH (08:15)
[2022-11-02] MEDS: FERROUS SULFATE 325 MG TAB PO SCH ×2 (08:15→15:50)
[2022-11-02 08:20] LABS: Hematocrit (blood only) 22.6 % (42.0-52.0); Hemoglobin 7.4 g/dl (14.0-18.0); Mean Corpuscular Hemoglobin 32.9 pg (25.0-34.0); Mean Corpuscular Hgb Conc 32.7 g/dL (32.0-36.0); Mean Corpuscular Volume 100.4 fL (80.0-100.0); Mean Platelet Volume 10.7 fL (9.4-12.4); Platelet Count 156 K/uL (130-400); RDW Coefficient of Variation 14.8 % (11.5-14.5); RDW Standard Deviation 54.4 fL (36.4-46.3); Red Blood Count 2.25 M/uL (4.70-6.10); White Blood Count 3.22 K/ul (4.8-10.8)
[2022-11-02 08:47] LABS: BUN Creatinine Ratio 14.3 (10-20); Calcium 7.8 mg/dl (8.6-10.3); Creatinine Clr Calc Pharmacy 79.2 ml/min; Est GFR (African American) 107.3 ml/min; Est GFR (Non-African American) 92.6 ml/min; Potassium 4.2 mmol/L (3.5-5.1)
[2022-11-02] MEDS ORDERED: diphenhydrAMINE Capsule 25 MG CAP PO ONE (09:02)
[2022-11-02] MEDS ORDERED: SODIUM CHLORIDE 0.9% 250 ML IV PRN (09:02)
[2022-11-02] MEDS ORDERED: ACETAMINOPHEN 500 MG TAB PO ONE (09:04)
[2022-11-02] MEDS ORDERED: IRON SUCROSE 300 MG in SODIUM CHLORIDE 0.9% 250 ML IV ONE (09:30)
[2022-11-02] MEDS: FOLIC ACID 1 MG TAB PO SCH (09:56)
--- NOTE | 2022-11-02 11:17 | Pharmacy Report ---
Pharmacy PK ABX Note - Date of Service November 02, 2022 - Assessment and Plan Assessment * 57 year old started on vancomycin for RLE erythema/rash, purpuric rash on BLE/arms. Foot/ankle xray negative for osteomyelitis. * Blood cultures with no growth to date * SCr with slight improvement noted, now at/near baseline Vancomycin * Target AUC/CELESTINO of 400-600 mg/L.hr * Random level of 17.0 mcg/mL this AM associated with a therapeutic AUC of 467 mg/L.hr Plan * Continue vancomycin 750 mg IV q12h * Repeat random level in 3 days, or sooner if SCr / clinical status changes Pharmacy has transitioned to AUC monitoring for vancomycin. AUC/CELESTINO is the preferred PK/PD target and is associated with decreased risk of nephrotoxicity compared to traditional trough targets.
[2022-11-02] MEDS: VANCOMYCIN HCL 750 MG in SODIUM CHLORIDE 0.9% 250 ML IV SCH (13:39)
--- NOTE | 2022-11-02 16:27 | Surgery Consultation ---
Date of Consultation November 02, 2022 Assessment & Plan (1) Rash: (2) Anemia: Plan 57 year-old male with history of right ankle swelling and pain for 10 days with rash of the lower extremities and arms. Question of possible vasculitis. History of similar cellulitis of right ankle/foot and rash of anterior thigh last year which resolved with antibiotic treatment. Plan: Will plan for punch biopsy at bedside tomorrow morning under local anesthetic continue medical management Dr. del rio has seen and examined pt, agrees with above. Supervising Physician Co-Signing Physician Notes I have seen and examined the patient personally and agree with the above assessment and plan. He has a purpuric rash of the lower extremities and arms. We have been asked to biopsy the purpura. We will plan to do this at the bedside tomorrow morning. History of Present Illness Reason for Consultation: skin biopsy Requesting Physician: Romina Dela Cruz PA-C Attending Physician: Isaiah Tripp MD History of Present Illness This is a 57-year-old male with PMH of hypertension, hypothyroidism, vitamin D deficiency, chronic pain syndrome, tobacco and alcohol use and other medical problems listed below who presents with pain and bruising to right foot and ankle for 10 days and a rash of his lower extremities and arms. State she had similar symptoms last year which was treated with antibiotics and the rash improved. His hemoglobin dropped yesterday to 6.5 and was given 1 unit of PRBCs. Hemoglobin today 7.4 and was given another unit of PRBCs. Our services consulted for skin/punch biopsy of the petechial rash to rule out vasculitis. Allergies Allergy/AdvReac Type Severity Reaction Status Date / Time No Known Allergies Allergy Verified 12/21/21 13:04 Home Medications Medication Instructions Recorded Confirmed Type No Known Home Medications 10/31/22 10/31/22 History Patient History Medical History Alcohol use HTN (hypertension) Hypothyroidism Left inguinal hernia Osteoarthritis Tobacco use Vitamin D deficiency Surgical History H/O left inguinal hernia repair History of tooth extraction S/P left inguinal hernia repair Family History Father Myocardial infarction Coronary heart disease Mother No problems noted. Sister No problems noted. Grandmother (Maternal) Diabetes Social History Smoking Status: Light tobacco smoker Cigarettes Per Day: 3-4; Second Hand Exposure: No; Do You Dip or Chew Tobacco: No; Hx Alcohol Use: Yes Alcohol type: beer Hx Substance Use: No Preferred Language: [place] Zealander Communication Ability: Effective Mall Manager Required: No Beliefs That Will Affect Care: None Current Living Situation: Alone Feels Safe at Home: Yes Assistive Devices: None Review of Systems Review of Systems: All systems reviewed & are unremarkable except as noted in HPI & below Physical Exam Constitutional: + cachectic, + frail appearing, cooperative and comfortable; no acute distress and not ill appearing Respiratory: normal respiratory effort; no respiratory distress Skin: Right ankle and anterior/medial farr with ecchymosis and erythema present, there is a wound present fo the medial ankle. There is a petechial rash of the bilateral lower extremities up to the thighs and the upper extremities. Psychiatric: Orientation: alert and oriented x 3 Results & Data Vital Signs (Past 12 Hours) Vital Signs Temp Pulse Pulse Resp BP BP BP 11/02/22 16:12 63 11/02/22 15:28 36.6 C 62 20 113/62 11/02/22 13:34 36.7 C 67 18 126/68 11/02/22 06:00 51 L 11/02/22 12:40 36.8 C 61 18 126/68 11/02/22 12:10 36.7 C 62 18 135/70 11/02/22 11:55 36.7 C 62 20 124/70 11/02/22 11:54 36.7 C 62 20 124/70 11/02/22 11:40 36.7 C 62 20 123/64 11/02/22 08:00 36.6 C 57 L 16 111/60 Pulse Ox O2 Del Method O2 Flow Rate 11/02/22 16:12 11/02/22 15:28 100 Room Air 11/02/22 13:34 100 0 11/02/22 06:00 11/02/22 12:40 100 0 11/02/22 12:10 100 0 11/02/22 11:55 100 0 11/02/22 11:54 100 11/02/22 11:40 63 L 11/02/22 08:00 100 Room Air
[2022-11-02] MEDS ORDERED: LIDOCAINE 1%/EPINEPHRINE 1:100,000 50 ML VIAL INFIL ONE (16:41)
--- NOTE | 2022-11-02 16:54 | Hospitalist Progress Note ---
Date of Service November 02, 2022 Assessment & Plan (1) Rash: (2) Anemia: (3) YOJANA (acute kidney injury): (4) Alcohol use: (5) Tobacco use: (6) Nausea: (7) Poor appetite: (8) Vasculitis: (9) Hypomagnesemia: Plan per admitting service notes with addendum: This is a 57-year-old male with PMH of hypertension, hypothyroidism, vitamin D deficiency, chronic pain syndrome, tobacco and alcohol use and other medical problems listed below who presents with pain and bruising to right foot and ankle that he noticed 10 days ago. Vasculitis Petechial/purpuric rash on BLE, arms Afebrile, no leukocytosis, procal WNL, lactate initially 2.5 but normalized with fluids in ED Vasculitic appearance on exam - ESR 33, CRP 9.35, platelets wnl Arterial doppler of BLE added due to arterial appearing wound on medial R ankle Discussed case with Dr. Segura of rheum - added additional labs as below, no indication to start steroids unless clear system involvement like development of worsening renal function or resp failure Pending work-up: UA, RPR, iron studies, B12, folate, lupus anticoagulant, antiphospholipid ab, cardiolipin ab, ANCA with reflex, C3/C4, cryoglobulins, SPEP with immunofixation, Hep C 11/02 Rheum consulted- ROGE 9, CK ordered May need IV steroid Gen Surg consulted- for punch biopsy tomorrow Appreciate input of pulm and general surgery service next Cellulitis of right lower limb MRI R foot: No osteomyelitis Blood culture: Negative so far Improving continue IV Vanco + Cefepime Anemia Iron deficiency Alcohol use, underlying inflammatory disease contributory Hemoglobin 7.4 Second unit of packed RBC ordered Venofer IV also ordered, p.o. ferrous sulfate Fuller Brush Worker Dr. Sanchez consulted, appreciate the recommendations Pulmonary hypertension, Severe Echocardiogram: Severe pulmonary hypertension Two-step exercise test upon discharge Outpatient embroidery finisher evaluation Poor appetite, nausea Severe protein-calorie malnutrition In setting of above. Underweight with BMI 17.5 unchanged from admission last year Eyeglass Assembler consult placed Antiemetics as needed Acute kidney injury Cr 1.16 (baseline ~ 0.85), likely a pre-renal component. UA pending, continue to trend resolved HTN Documented in chart as a chronic issue but not compliant with medication Hypothyroidism Noted as a previous issue but not compliant with medication. TSH normal Alcohol use disorder Regularly consumes 4 cans of beer daily but has not been drinking for 5 days due to feeling poorly No s/sx of withdrawal at this time, can add withdrawal protocol as needed Tobacco use Endorses 1/4 ppd. Smoking cessation DVT Ppx: SCDs for now Code status: FULL PCP: Hay Dispo: pending will order PT/OT Admission and Anticipated Discharge Date Admission Date: October 31, 2022 Subjective Follow-up for anemia, right foot wound with cellulitis, etc. Seen resting in bed, sitting up and watching TV Comfortable, not in distress States he feels slightly better compared to yesterday Weakness, shortness of breath seems to be improving Right foot pain also improving, able to move it better No signs of active bleeding noted No other new symptoms Review of Systems Review of Systems: all noted and negative except for above Physical Exam Physical Exam: General- oriented x 3, not in distress, speaks in sentences with no effort or accessory muscle use Eyes- anicteric Neck- no JVD Lungs- clear breath sounds bilaterally, no crackles or wheezing Heart- normal rate, regular rhythm; no murmurs Abdomen- normal bowel sounds, nondistended, soft, nontender Extremities-right foot: Less edema, warmth, tenderness, range of motion also better Wound scabbing, no bleeding or discharge No pretibial edema, no calf tenderness Skin: Diffuse purpuric rash Neuro- alert, oriented x 3; no gross focal neurologic deficits Skin- warm & dry Results & Data Results & Data Vital Signs (Past 12 Hours) Vital Signs Temp Pulse Pulse Resp BP BP BP 11/02/22 16:12 63 11/02/22 15:28 36.6 C 62 20 113/62 11/02/22 13:34 36.7 C 67 18 126/68 11/02/22 06:00 51 L 11/02/22 12:40 36.8 C 61 18 126/68 11/02/22 12:10 36.7 C 62 18 135/70 11/02/22 11:55 36.7 C 62 20 124/70 11/02/22 11:54 36.7 C 62 20 124/70 11/02/22 11:40 36.7 C 62 20 123/64 11/02/22 08:00 36.6 C 57 L 16 111/60 Pulse Ox O2 Del Method O2 Flow Rate 11/02/22 16:12 11/02/22 15:28 100 Room Air 11/02/22 13:34 100 0 11/02/22 06:00 11/02/22 12:40 100 0 11/02/22 12:10 100 0 11/02/22 11:55 100 0 11/02/22 11:54 100 11/02/22 11:40 63 L 11/02/22 08:00 100 Room Air all noted and reviewed including below
[2022-11-02] MEDS ORDERED: LIDOCAINE 1%/EPINEPHRINE 1:100,000 20 ML VIAL INFIL ONE (18:00)
[2022-11-03] MEDS: VANCOMYCIN HCL 750 MG in SODIUM CHLORIDE 0.9% 250 ML IV SCH ×3 (00:01→23:25)
[2022-11-03 07:32] LABS: BUN Creatinine Ratio 12.6 (10-20); Calcium 7.8 mg/dl (8.6-10.3); Creatinine Clr Calc Pharmacy 82.3 ml/min; Est GFR (African American) 110.3 ml/min; Est GFR (Non-African American) 95.1 ml/min; Potassium 3.8 mmol/L (3.5-5.1)
[2022-11-03] MEDS: FOLIC ACID 1 MG TAB PO SCH (07:52)
[2022-11-03] MEDS: FERROUS SULFATE 325 MG TAB PO SCH ×2 (07:52→16:57)
[2022-11-03] MEDS: CYANOCOBALAMIN (B-12) 500 MCG TABLET PO SCH (07:52)
[2022-11-03] MEDS: PANTOprazole 40 MG in SYRINGE 0 ML IV SCH ×2 (07:53→20:36)
[2022-11-03] MEDS: CEFEPIME 2,000 MG in SYRINGE 0 ML IV SCH ×4 (07:53→23:19)
[2022-11-03 10:04] LABS: Basophils # (auto) 0.04 K/uL (0-0.2); Eosinophils # (auto) 0.09 K/uL (0-0.50); Eosinophils % (auto) 2.3 %; Hematocrit (blood only) 24.5 % (42.0-52.0); Hemoglobin 8.2 g/dl (14.0-18.0); Immature Granulocytes # (auto) 0.02 K/uL (0.01-0.20); Immature Granulocytes % (auto) 0.5 %; Lymphocytes % (auto) 28.3 %; Mean Corpuscular Hemoglobin 32.8 pg (25.0-34.0); Mean Corpuscular Hgb Conc 33.5 g/dL (32.0-36.0); Mean Platelet Volume 11.3 fL (9.4-12.4); Monocytes # (auto) 0.33 K/uL (0.11-0.59); Monocytes % (auto) 8.5 %; Neutrophils # (auto) 2.31 K/uL (1.40-6.50); Neutrophils % (auto) 59.4 %; Platelet Count 162 K/uL (130-400); RDW Coefficient of Variation 16.4 % (11.5-14.5); RDW Standard Deviation 58.3 fL (36.4-46.3); White Blood Count 3.89 K/ul (4.8-10.8)
--- NOTE | 2022-11-03 10:09 | Operative Report ---
Post Operative Report Pre & Post Diagnosis Operation Date: 11/02/22 11:15 Preop: Purpuric rash lower extremities Postop: Same I identified the patient and participated in the time-out.: Yes Procedure Operation Date: 11/02/22 11:15 Punch biopsy purpuric rash right lower extremity Surgeon Arya Modi MD Patrol Mother None Estimated Blood Loss 1 Findings Consistent with Post-Op Diagnosis Specimens Punch biopsy of skin right lower extremity Drains None Anesthesia Type Local Complications No immediate complications Description of Procedure Patient was seen at the bedside and consent was obtained. The right lower extremity was prepped and draped in the normal sterile fashion. Local anesthetic was injected into and around one of the purpuric lesions on the right lower extremity. 3 mm punch was used to biopsy the skin. It was sent off for pathology. The skin defect was closed with a 4-0 nylon suture. Dressing was applied. He tolerated the procedure without complication. I attest to the content of the Intraoperative Record and any orders documented therein. Any exceptions are noted below.
[2022-11-03 12:09] LABS: Base Excess VBG -7.4 mEq/L; HCO3 VBG 17 mmol/L; Oxygen Saturation VBG < 60.0 %; PCO2 VBG 32 mmHg (38-50); PO2 VBG 34 mmHg; pH VBG 7.34 (7.36-7.41)
--- NOTE | 2022-11-03 14:47 | Hospitalist Progress Note ---
Date of Service November 03, 2022 Assessment & Plan (1) Rash: (2) Anemia: (3) YOJANA (acute kidney injury): (4) Alcohol use: (5) Tobacco use: (6) Nausea: (7) Poor appetite: (8) Vasculitis: (9) Hypomagnesemia: Plan per admitting service notes with addendum: This is a 57-year-old male with PMH of hypertension, hypothyroidism, vitamin D deficiency, chronic pain syndrome, tobacco and alcohol use and other medical problems listed below who presents with pain and bruising to right foot and ankle that he noticed 10 days ago. Vasculitis Petechial/purpuric rash on BLE, arms Afebrile, no leukocytosis, procal WNL, lactate initially 2.5 but normalized with fluids in ED Vasculitic appearance on exam - ESR 33, CRP 9.35, platelets wnl Arterial doppler of BLE added due to arterial appearing wound on medial R ankle Discussed case with Dr. Segura of rheum - added additional labs as below, no indication to start steroids unless clear system involvement like development of worsening renal function or resp failure Pending work-up: UA, RPR, iron studies, B12, folate, lupus anticoagulant, antiphospholipid ab, cardiolipin ab, ANCA with reflex, C3/C4, cryoglobulins, SPEP with immunofixation, Hep C Rheum consulted- ROGE 9, CK ordered Gen Surg consulted- s/p punch biopsy of skin, right lower extremity November 03, [address] beater lead Dr. Jose Segura-patient can follow-up at his clinic November 08, 2022 at 11:45 AM Follow-up final results of skin biopsy Cellulitis of right lower limb MRI R foot: No osteomyelitis Blood culture: Negative so far Improving continue IV Vanco + Cefepime day #3 Anticipate discharge to home tomorrow on oral doxycycline plus Augmentin Anemia Iron deficiency Alcohol use, underlying inflammatory disease contributory Hemoglobin 7.4 Second unit of packed RBC ordered Venofer IV also ordered, p.o. ferrous sulfate Erp Project Manager Dr. Sanchez consulted, appreciate the recommendations Hemoglobin increased to 8.2 Will need ferrous sulfate, vitamin B12, folic acid upon discharge Monitor closely Anion gap metabolic acidosis Possible underlying renal tubular acidosis Urine pH 5.0 [address] with chiller tender Dr. Wong Recommend obtaining urine sodium, potassium, chloride, urea, glucose, osmolality Start sodium bicarb 650 mg twice daily Repeat BMP in 1 week Follow-up with chiller tender Pulmonary hypertension, Severe Echocardiogram: Severe pulmonary hypertension Two-step exercise test: Does not require oxygen supplementation Outpatient hvac design engineer evaluation-needs to follow-up with pulmonary hypertension clinic Poor appetite, nausea Severe protein-calorie malnutrition In setting of above Underweight with BMI 17.5 unchanged from admission last year Hull Molder consult placed Antiemetics as needed Acute kidney injury Cr 1.16 (baseline ~ 0.85), likely a pre-renal component resolved HTN Documented in chart as a chronic issue but not compliant with medication Hypothyroidism Noted as a previous issue but not compliant with medication. TSH normal Alcohol use disorder Regularly consumes 4 cans of beer daily but has not been drinking for 5 days due to feeling poorly No s/sx of withdrawal at this time, can add withdrawal protocol as needed Tobacco use Endorses 1/4 ppd. Smoking cessation DVT Ppx: SCDs for now Code status: FULL PCP: Hay Dispo: Anticipate discharge to home tomorrow with oral antibiotic Admission and Anticipated Discharge Date Admission Date: October 31, 2022 Subjective Follow-up for right foot cellulitis, possible underlying vasculitis, etc. Seen resting in bed, comfortable, not in distress States he continues to improve Right foot pain improving Shortness of breath, weakness also improving Ambulated today in the hallways with no problems No other new symptom Review of Systems Review of Systems: all noted and negative except for above Physical Exam Physical Exam: General- oriented x 3, not in distress, speaks in sentences with no effort or accessory muscle use Eyes- anicteric Neck- no JVD Lungs- clear breath sounds bilaterally, no rales/wheezes Heart- normal rate, regular rhythm; no murmurs Abdomen- normal bowel sounds, nondistended, soft, nontender Extremities- no pretibial edema, no calf tenderness Right foot-positive for mild edema, warmth, no tenderness Wound healing well Neuro- alert, oriented x 3; no gross focal neurologic deficits Skin- warm & dry Positive diffuse purpuric rash-stable Results & Data Results & Data Vital Signs (Past 12 Hours) Vital Signs Temp Pulse Pulse Pulse Pulse Resp Resp 11/03/22 11:40 57 L 52 L 18 11/03/22 11:18 36.6 C 58 L 16 11/03/22 08:35 58 L 11/03/22 07:32 36.7 C 53 L 16 11/03/22 02:59 36.5 C 52 L 18 Resp BP BP Pulse Ox Pulse Ox Pulse Ox O2 Del Method 11/03/22 11:40 14 99 100 11/03/22 11:18 123/68 98 Room Air 11/03/22 08:35 11/03/22 07:32 122/61 99 Room Air 11/03/22 02:59 110/59 L 99 Room Air all noted and reviewed including below
[2022-11-03 16:17] LABS: Potassium Random Urine 15.8 mmol/L
[2022-11-03] MEDS: SODIUM BICARBONATE 650 MG TAB PO SCH (20:36)
[2022-11-04 06:05] LABS: Hematocrit (blood only) 24.6 % (42.0-52.0); Hemoglobin 8.1 g/dl (14.0-18.0); Mean Corpuscular Hgb Conc 32.9 g/dL (32.0-36.0); Mean Corpuscular Volume 97.2 fL (80.0-100.0); Mean Platelet Volume 10.9 fL (9.4-12.4); Platelet Count 168 K/uL (130-400); RDW Coefficient of Variation 15.9 % (11.5-14.5); RDW Standard Deviation 56.4 fL (36.4-46.3); Red Blood Count 2.53 M/uL (4.70-6.10); White Blood Count 3.82 K/ul (4.8-10.8)
[2022-11-04 06:20] LABS: BUN Creatinine Ratio 11.4 (10-20); Calcium 7.9 mg/dl (8.6-10.3); Creatinine Clr Calc Pharmacy 81.4 ml/min; Est GFR (African American) 109.7 ml/min; Est GFR (Non-African American) 94.7 ml/min
[2022-11-04 07:01] LABS: Basophils # (auto) 0.03 K/uL (0-0.2); Basophils % (auto) 0.8 %; Eosinophils # (auto) 0.11 K/uL (0-0.50); Eosinophils % (auto) 2.9 %; Immature Granulocytes # (auto) 0.02 K/uL (0.01-0.20); Immature Granulocytes % (auto) 0.5 %; Lymphocytes # (auto) 1.28 K/uL (1.2-3.4); Lymphocytes % (auto) 33.5 %; Monocytes # (auto) 0.41 K/uL (0.11-0.59); Monocytes % (auto) 10.7 %; Neutrophils # (auto) 1.97 K/uL (1.40-6.50); Neutrophils % (auto) 51.6 %; Polychromasia 1+
[2022-11-04] MEDS: FERROUS SULFATE 325 MG TAB PO SCH (07:34)
[2022-11-04] MEDS: CEFEPIME 2,000 MG in SYRINGE 0 ML IV SCH (07:34)
[2022-11-04] MEDS: SODIUM BICARBONATE 650 MG TAB PO SCH (07:34)
[2022-11-04] MEDS: PANTOprazole 40 MG in SYRINGE 0 ML IV SCH (07:34)
[2022-11-04] MEDS: CYANOCOBALAMIN (B-12) 500 MCG TABLET PO SCH (07:35)
[2022-11-04] MEDS: FOLIC ACID 1 MG TAB PO SCH (07:35)
--- NOTE | 2022-11-04 10:02 | Hospitalist Progress Note ---
Date of Service November 04, 2022 delayed entry date of service noted above Assessment & Plan (1) Rash: (2) Anemia: (3) YOJANA (acute kidney injury): (4) Alcohol use: (5) Tobacco use: (6) Nausea: (7) Poor appetite: (8) Vasculitis: (9) Hypomagnesemia: Plan per admitting service notes with addendum: This is a 57-year-old male with PMH of hypertension, hypothyroidism, vitamin D deficiency, chronic pain syndrome, tobacco and alcohol use and other medical problems listed below who presents with pain and bruising to right foot and ankle that he noticed 10 days ago. Petechial/Purpuric Rash Bilateral Upper and Lower Extremities Possible Vasculitis Petechial/purpuric rash on BLE, arms Afebrile, no leukocytosis, procal WNL, lactate initially 2.5 but normalized with fluids in ED Vasculitic appearance on exam - ESR 33, CRP 9.35, platelets wnl Arterial doppler of BLE added due to arterial appearing wound on medial R ankle Discussed case with Dr. Segura of rheum - added additional labs as below Pending work-up: UA, RPR, iron studies, B12, folate, lupus anticoagulant, antiphospholipid ab, cardiolipin ab, ANCA with reflex, C3/C4, cryoglobulins, SPEP with immunofixation, Hep C Rheum consulted- ROGE 9, CK ordered Gen Surg consulted- s/p punch biopsy of skin, right lower extremity November 03, 2022 Discussed with yard supervisor cotton gin Dr. Jose Seugra-patient can follow-up at his clinic November 08, 2022 at 11:45 AM Follow-up final results of skin biopsy Cellulitis of right lower limb MRI R foot: No osteomyelitis Blood culture: Negative so far Improving continue IV Vanco + Cefepime day #3 Discharge on oral doxycycline plus Augmentin Anemia Iron deficiency Alcohol use, underlying inflammatory disease contributory Hemoglobin 7.4 Second unit of packed RBC ordered Venofer IV also ordered, p.o. ferrous sulfate Cutter Grind Tool Technician Dr. Sanchez consulted, appreciate the recommendations Hemoglobin increased to 8.2 Will need ferrous sulfate, vitamin B12, folic acid upon discharge Monitor closely Anion gap metabolic acidosis Possible underlying renal tubular acidosis Urine pH 5.0 Discussed with audio visual design engineer Dr. Wong Recommend obtaining urine sodium, potassium, chloride, urea, glucose, osmolality Start sodium bicarb 650 mg twice daily Repeat BMP in 1 week Follow-up with audio visual design engineer Pulmonary hypertension, Severe Echocardiogram: Severe pulmonary hypertension Two-step exercise test: Does not require oxygen supplementation Outpatient kiln tester evaluation-needs to follow-up with pulmonary hypertension clinic Poor appetite, nausea Severe protein-calorie malnutrition In setting of above Underweight with BMI 17.5 unchanged from admission last year Loom Winder Tender consult placed Antiemetics as needed Acute kidney injury Cr 1.16 (baseline ~ 0.85), likely a pre-renal component resolved HTN Documented in chart as a chronic issue but not compliant with medication Hypothyroidism Noted as a previous issue but not compliant with medication. TSH normal Alcohol use disorder Regularly consumes 4 cans of beer daily but has not been drinking for 5 days due to feeling poorly No s/sx of withdrawal at this time, can add withdrawal protocol as needed Tobacco use Endorses 1/4 ppd. Smoking cessation DVT Ppx: SCDs for now Code status: FULL PCP: Hay Dispo: d/c to home , ff up with PCP in 1 week Admission and Anticipated Discharge Date Admission Date: October 31, 2022 Subjective ff up for R foot infection, anemia, etc seen resting in bed, comfortable states he feels much better overall denies weakness, dizziness R foot pain much better no other symptoms states he is ready for discharge and would like to be discharged ANA Review of Systems Review of Systems: all noted and negative except for above Physical Exam Physical Exam: General- oriented x 3, not in distress, speaks in sentences with no effort or accessory muscle use Eyes- anicteric Neck- no JVD Lungs- clear breath sounds bilaterally, no rales/wheezes Heart- normal rate, regular rhythm; no murmurs Abdomen- normal bowel sounds, nondistended, soft, nontender Extremities- no pretibial edema, no calf tenderness R foot: minimal edema, erythema, no tenderness Neuro- alert, oriented x 3; no gross focal neurologic deficits Skin- warm & dry Results & Data Results & Data Vital Signs (Past 12 Hours) Vital Signs Temp Pulse Pulse Resp BP BP Pulse Ox 11/04/22 08:08 36.7 C 58 L 18 123/65 135/67 100 11/04/22 07:34 36.7 C 58 L 18 135/67 100 11/04/22 07:22 61 11/04/22 02:59 36.6 C 49 L 16 123/65 100 08/11/23 22:55 36.8 C 58 L 18 130/67 100 O2 Del Method 11/04/22 08:08 11/04/22 07:34 Room Air 11/04/22 07:22 11/04/22 02:59 Room Air 11/03/22 22:55 Room Air all noted and reviewed including below
[2022-11-07 23:47] LABS: % Cryocrit DNR; Cryoglobulin, QL Negative (Negative)
--- NOTE | 2022-11-08 01:11 | Discharge Summary ---
Discharge Summary Date of Service November 08, 2022 Notes For Next Care Provider Medication Changes From Visit Doxycycline, Augmentin-antibiotic for infection of the right foot Iron, folic acid, vitamin B12 -supplements for anemia Sodium bicarbonate-for metabolic acidosis (high level of acid in your blood) Admission HPI Per Admitting Provider This is a 57-year-old male with PMH of hypertension, hypothyroidism, vitamin D deficiency, chronic pain syndrome, tobacco and alcohol use and other medical problems listed below who presents with pain and bruising to right foot and ankle that he noticed 10 days ago. Noted swelling to right ankle discoloration of skin to dark red/purple. In the past few days spencer has also noticed a rash developing on both legs up to waist as well as noted on bilateral arms and palms. States rash looks very similar to when he was admitted last year for IV antibiotics related to right foot infection. At that time, dermatology waited with thought that it looked consistent with Henoch-Schnlein purpura and recommended skin biopsy if no improvement. Denies any known falls or trauma to the area. Associated symptoms include decreased appetite, nausea and lightheadedness especially with standing. No F,C, CP, SOB, vomiting, abdominal pain, dysuria, diarrhea or constipation. No known tick bites. Denies recent sexual activity. Usually drinks 4 cans of beer daily but hasn't had a drink in 5 days due to feeling poorly. Smokes ~5 cigarettes a day. Was last seen in January 2022. Not on any regular home medications. Admission Exam Per Admitting Provider General Appearance:WD/WN, vitals as above, NAD, thin appearing male Head: normocephalic, atraumatic Eyes:normal inspection, PERRL, conjunctivae normal, anicteric sclerae ENT: external ear and nose normal, oropharynx normal Neck: normal visual inspection, trachea midline, no thyromegaly Respiratory:normal respiratory effort, lungs clear to auscultation, no wheeze, rales, rhonchi. No accessory muscle use Cardiovascular: regular rate, rhythm, no murmur, normal peripheral pulses, no BLE edema. Vessels: no JVD Chest: normal inspection of chest Abdomen/GI: normal bowel sounds, soft, nontender, no hepatosplenomegaly Extremities/Musculoskeletal:+ R ankle and lower leg with dark red/purple discoloration and edema, bilateral toes with similar discoloration. R medial ankle with well circumscribed wound with eschar. Petechial/purpuric rash noted on BLE as well as arms, non-blanchable, diminished DP and PT pulses. Bilateral palmar aspects on hands with macular pale lesions, nodular bruise also noted on R palm and L medial thigh. Neurologic: PERRL, EOMI, accommodation nl, no face palsy, no dysarthria, CN's II-XI intact bilaterally and moves all extremities Psychiatric:A+Ox3, euthymic affect Skin: +Rash noted above, normal color, warm/dry Principal Dx & Hospital Course #1 = Principal Diagnosis (1) Rash: (2) Anemia: (3) YOJANA (acute kidney injury): (4) Alcohol use: (5) Tobacco use: (6) Nausea: (7) Poor appetite: (8) Vasculitis: (9) Hypomagnesemia: Plan per admitting service notes with addendum: This is a 57-year-old male with PMH of hypertension, hypothyroidism, vitamin D deficiency, chronic pain syndrome, tobacco and alcohol use and other medical problems listed below who presents with pain and bruising to right foot and ankle that he noticed 10 days ago. Petechial/Purpuric Rash Bilateral Upper and Lower Extremities Possible Vasculitis Petechial/purpuric rash on BLE, arms Afebrile, no leukocytosis, procal WNL, lactate initially 2.5 but normalized with fluids in ED Vasculitic appearance on exam - ESR 33, CRP 9.35, platelets wnl Arterial doppler of BLE added due to arterial appearing wound on medial R ankle Discussed case with Dr. Segura of rheum - added additional labs as below Pending work-up: UA, RPR, iron studies, B12, folate, lupus anticoagulant, antiphospholipid ab, cardiolipin ab, ANCA with reflex, C3/C4, cryoglobulins, SPEP with immunofixation, Hep C Rheum consulted- ROGE 9, CK ordered Gen Surg consulted- s/p punch biopsy of skin, right lower extremity November 03, 2022 Discussed with software engineer web services Dr. Jose Segura-patient can follow-up at his clinic November 08, 2022 at 11:45 AM Follow-up final results of skin biopsy Cellulitis of Right Foot/Ankle MRI R foot: No osteomyelitis; Osteochondral lesion within the medial talar dome. Blood culture: Negative so far Improving continue IV Vanco + Cefepime day #3 Discharge on oral doxycycline plus Augmentin ff up with Ortho for Osteochondral lesion Anemia Iron deficiency Alcohol use, underlying inflammatory disease contributory Hemoglobin 7.4 Second unit of packed RBC ordered Venofer IV also ordered, p.o. ferrous sulfate P[employer] And Penc[employer] Dipper Dr. Sanchez consulted, appreciate the recommendations Hemoglobin increased to 8.2 Will need ferrous sulfate, vitamin B12, folic acid upon discharge Monitor closely Anion gap metabolic acidosis Possible underlying renal tubular acidosis Urine pH 5.0 Discussed with die cutter diamond Dr. 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 TSH normal Alcohol use disorder Regularly consumes 4 cans of beer daily but has not been drinking for 5 days due to feeling poorly No s/sx of withdrawal at this time, can add withdrawal protocol as needed Tobacco use Endorses 1/4 ppd. Smoking cessation DVT Ppx: SCDs for now Code status: FULL PCP: Hay Dispo: d/c to home , ff up with PCP in 1 week Discharge Exam General- oriented x 3, not in distress, speaks in sentences with no effort or accessory muscle use Eyes- anicteric Neck- no JVD Lungs- clear breath sounds bilaterally, no rales/wheezes Heart- normal rate, regular rhythm; no murmurs Abdomen- normal bowel sounds, nondistended, soft, nontender Extremities- no pretibial edema, no calf tenderness R foot: minimal edema, erythema, no tenderness Neuro- alert, oriented x 3; no gross focal neurologic deficits Skin- warm & dry Updated Medication List Medication Instructions Recorded Confirmed Type amoxicillin 875 mg-potassium 1 tab PO BID 7 days #14 tabs 11/04/22 Rx clavulanate 125 mg tablet cyanocobalamin (vitamin B-12) 500 1,000 mcg PO QAM 30 days #60 tabs 11/04/22 Rx mcg tablet doxycycline hyclate 100 mg capsule 100 mg PO BID 7 days #14 caps 11/04/22 Rx ferrous sulfate 325 mg (65 mg 325 mg PO BIDM 30 days #60 tabs 11/04/22 Rx iron) tablet,delayed release folic acid 1 mg tablet 1 mg PO QAM 30 days #30 tabs 11/04/22 Rx sodium bicarbonate 650 mg tablet 650 mg PO BID 14 days #28 tabs 11/04/22 Rx Hospital Stay Data Consultations 10/31/22 17:58 Consult Rheumatology Routine 10/31/22 18:01 Consult General Surgery Routine 10/31/22 20:59 ED Decision to Admit Stat 11/01/22 10:10 Consult Hematology Routine Procedures Performed Operation Date: 11/02/22 11:15 <No data on this case meets the specified criteria> Diagnostic Imagining Performed Laboratory Results WBC 3.82 K/ul (4.8-10.8) L 11/04/22 05:27 RBC 2.53 M/uL (4.70-6.10) L 11/04/22 05:27 Hgb 8.1 g/dl (14.0-18.0) L 11/04/22 05:27 Hct 24.6 % (42.0-52.0) L 11/04/22 05:27 MCV 97.2 fL (80.0-100.0) 11/04/22 05:27 MCH 32.0 pg (25.0-34.0) 11/04/22 05:27 MCHC 32.9 g/dL (32.0-36.0) 11/04/22 05:27 RDW Std Deviation 56.4 fL (36.4-46.3) H 11/04/22 05:27 RDW Coeff of Cordell 15.9 % (11.5-14.5) H 11/04/22 05:27 Plt Count 168 K/uL (130-400) 11/04/22 05:27 MPV 10.9 fL (9.4-12.4) 11/04/22 05:27 Immature Gran % (Auto) 0.5 % 11/04/22 05:27 Neut % (Auto) 51.6 % 11/04/22 05:27 Lymph % (Auto) 33.5 % 11/04/22 05:27 Rhea % (Auto) 10.7 % 11/04/22 05:27 Eos % (Auto) 2.9 % 11/04/22 05:27 Baso % (Auto) 0.8 % 11/04/22 05:27 Reticulocyte % (Auto) 6.5 % (0.5-2.0) H 11/01/22 05:54 Neut # (Auto) 1.97 K/uL (1.40-6.50) 11/04/22 05:27 Lymph # (Auto) 1.28 K/uL (1.2-3.4) 11/04/22 05:27 Rhea # (Auto) 0.41 K/uL (0.11-0.59) 11/04/22 05:27 Eos # (Auto) 0.11 K/uL (0-0.50) 11/04/22 05:27 Baso # (Auto) 0.03 K/uL (0-0.2) 11/04/22 05:27 Reticulocyte # 0.13 10^6/uL (0.02-0.10) H 11/01/22 05:54 Immature Gran # (Auto) 0.02 K/uL (0.01-0.20) 11/04/22 05:27 Polychromasia 1+ 11/04/22 05:27 Peripher Smr Path Cons 11/01/22 05:54 ESR 33 mm/hr (0-20) H 10/31/22 14:40 Haptoglobin 174 mg/dL (43-212) 11/01/22 05:54 PT 12.2 Seconds (9.0-12.0) H 10/31/22 13:57 INR 1.1 (0.9-1.1) 10/31/22 13:57 APTT 28.2 Seconds (21.0-31.0) 10/31/22 13:57 PTT Ratio 1.0 10/31/22 13:57 VBG pH 7.34 (7.36-7.41) L 11/03/22 11:35 VBG pCO2 32 mmHg (38-50) L 11/03/22 11:35 VBG pO2 34 mmHg 11/03/22 11:35 VBG HCO3 17 mmol/L 11/03/22 11:35 VBG O2 Saturation < 60.0 % 11/03/22 11:35 VBG Base Excess -7.4 mEq/L 11/03/22 11:35 Sodium 133 mmol/L (136-145) L 11/04/22 05:27 Potassium 4.0 mmol/L (3.5-5.1) 11/04/22 05:27 Chloride 111 mmol/L (98-107) H 11/04/22 05:27 Carbon Dioxide 19 mmol/L (21-32) L 11/04/22 05:27 Anion Gap 3 (3-11) 11/04/22 05:27 BUN 10 mg/dl (6-23) 11/04/22 05:27 Creatinine 0.88 mg/dl (0.6-1.4) 11/04/22 05:27 Est Cr Clr Drug Dosing 81.4 ml/min 11/04/22 05:27 Est GFR ( Amer) 109.7 ml/min 11/04/22 05:27 Est GFR (Non-Af Amer) 94.7 ml/min 11/04/22 05:27 BUN/Creatinine Ratio 11.4 (10-20) 11/04/22 05:27 Glucose 96 mg/dl (70-99(Fasting)) 11/04/22 05:27 Lactate 1.9 mmol/L (0.4-2.0) 10/31/22 17:03 Calcium 7.9 mg/dl (8.6-10.3) L 11/04/22 05:27 Magnesium 3.0 mg/dl (1.7-2.4) H 11/01/22 05:54 Iron 21 mcg/dl (35-175) L 11/01/22 05:54 Unsaturated IBC 198 mcg/dl (155-355) 10/31/22 13:57 Ferritin 320.3 ng/ml (8-388) 10/31/22 13:57 Total Bilirubin 1.8 mg/dl (0.2-1.0) H 11/01/22 05:54 Direct Bilirubin 0.4 mg/dl (0-0.2) H 11/01/22 05:54 AST 12 U/L (13-39) L 11/01/22 05:54 ALT 6 U/L (7-52) L 11/01/22 05:54 Alkaline Phosphatase 42 U/L (34-104) 11/01/22 05:54 Lactate Dehydrogenase 125 U/L (86-244) 11/01/22 05:54 Total Creatine Kinase 43 U/L (30-223) 11/02/22 07:51 Troponin I High Sens 2.8 pg/ml (0-20) 10/31/22 13:57 C-Reactive Protein 9.35 mg/dl (0-0.5) H 10/31/22 13:57 Total Protein 5.5 gm/dl (6.0-8.3) L D 11/01/22 05:54 Albumin 2.5 gm/dl (3.4-5.0) L 11/01/22 05:54 Globulin 3.0 gm/dl (2.5-4.0) 11/01/22 05:54 Albumin/Globulin Ratio 0.8 (0.9-2) L 11/01/22 05:54 Vitamin B12 292 pg/ml (180-914) 10/31/22 18:26 Folate 9.35 ng/ml (>5.38) 10/31/22 18:26 Procalcitonin 0.18 ng/ml (0-0.5) 10/31/22 14:40 TSH 4.149 uIu/ml (0.300-4.500) 11/01/22 05:54 Urine Color [place] 11/01/22 Unknown Urine Appearance Clear (Clear) 11/01/22 Unknown Urine pH 5.0 (4.5-7.5) 11/01/22 Unknown Ur Specific [place] 1.035 (1.000-1.030) H 11/01/22 Unknown Urine Protein Trace (Negative) H 11/01/22 Unknown Urine Glucose (UA) Negative (Negative) 11/01/22 Unknown Urine Ketones 1+ (Negative) H 11/01/22 Unknown Urine Blood Negative (Negative) 11/01/22 Unknown Urine Nitrite Positive (Negative) A 11/01/22 Unknown Urine Bilirubin 1+ (Negative) H 11/01/22 Unknown Urine Urobilinogen Negative (Negative) 11/01/22 Unknown Ur Leukocyte Esterase Trace (Negative) H 11/01/22 Unknown Urine WBC (Auto) 1-5 /hpf (0-5) 11/01/22 Unknown Urine RBC (Auto) 0-4 /hpf (0-4) 11/01/22 Unknown U Hyaline Cast (Auto) 5-10 /lpf (0-5) H 11/01/22 Unknown U Epithel Cells (Auto) 0-5 /lpf (0-5) 11/01/22 Unknown Urine Bacteria (Auto) Negative (Negative) 11/01/22 Unknown Urine Osmolality 712 mOsm/kg (500-800) 11/03/22 15:46 Ur Random Sodium 176 mmol/L 11/03/22 15:46 Ur Random Potassium 15.8 mmol/L 11/03/22 15:46 Ur Random Chloride 239 mmol/L 11/03/22 15:46 Stool Occult Bld Scrn Negative (Negative) 11/02/22 12:39 Random Vancomycin 17.0 mcg/ml (10-20) 11/02/22 07:51 Ethyl Alcohol mg/dL < 10.0 mg/dl (<10.0) 10/31/22 13:57 Cryoglobulin Negative (Negative) 11/01/22 07:00 Cryoglobulin Cryocrit DNR 11/01/22 07:00 RPR Nonreactive (Nonreactive) 10/31/22 17:03 Hepatitis C Ab (EIA) NON-REACTIVE (NON-REACTIVE) 10/31/22 13:57 Blood Type A Negative 10/31/22 14:39 Blood Type Recheck A Negative 11/01/22 07:00 Antibody Screen NEGATIVE 10/31/22 14:39 Crossmatch See Detail 10/31/22 14:39 Impressions Ankle X-Ray 10/31/22 14:16 XR ankle RT min 3V routine CLINICAL HISTORY: Right ankle medial infection. COMPARISON STUDY: Right ankle 12/21/2021. FINDINGS: Soft tissue swelling within the ankle most pronounced medially. No fracture or dislocation. No bony destruction to suggest an osteomyelitis. No radiopaque foreign bodies. The bones are slightly osteopenic. IMPRESSION: Soft tissue swelling within the right ankle. No underlying bony abnormality. ACT 112: Negative or not required by law. Electronically signed by: Omega Bright M.D. 10/31/2022 3:08 PM Chest X-Ray 10/31/22 14:16 XR chest 1V portable CLINICAL HISTORY: sepsis workup TECHNIQUE: Single frontal radiograph of the chest was obtained. Comparison: Comparison is made to chest radiograph 04/28/2007 FINDINGS: No lines and tubes are seen. The cardiomediastinal silhouette is normal. The lungs are clear. No evidence of pleural effusion or pneumothorax. IMPRESSION: No acute abnormalities and in particular no radiographic evidence of pneumonia. ACT 112: Negative or not required by law. Electronically signed by: Jacinto Rick M.D. 10/31/2022 2:41 PM Foot X-Ray 10/31/22 14:16 RIGHT FOOT 3 VIEWS CLINICAL HISTORY: Infection. FINDINGS: 3 views of the right foot are obtained. No prior studies are available for comparison at the time of dictation. The skeletal structures are heterogeneously osteopenic. No fracture is seen. Minimal arthritic change is noted in the foot. No bony erosion or periostitis is identified. Minimal soft tissue swelling is suggested. No soft tissue gas or radiodense foreign body is seen. IMPRESSION: No acute bony abnormality is identified. Electronically signed by: Kaz Portillo M.D. 10/31/2022 2:43 PM Duplex Scan Lower Extremity Artery 10/31/22 16:47 Exam(s): US ARTERIAL BILATERAL LOWER EXTREMITIES EXAM: US Duplex Bilateral Lower Extremities Arteries CLINICAL HISTORY: Reason for exam: skin changes more priminent L medial ankle. TECHNIQUE: Real-time duplex ultrasound scan of the bilateral lower extremity arteries integrating B-mode two-dimensional vascular structure, Doppler spectral analysis and color flow Doppler imaging. COMPARISON: No relevant prior studies available. FINDINGS: Right common femoral artery: No acute findings. No occlusion or significant stenosis on color flow and spectral Doppler imaging. Normal waveform. Right superficial femoral artery: No acute findings. No occlusion or significant stenosis on color flow and spectral Doppler imaging. Normal waveform. Right popliteal artery: No acute findings. No occlusion or significant stenosis on color flow and spectral Doppler imaging. Normal waveform. Right calf/foot arteries: No acute findings. No occlusion or significant stenosis on color flow and spectral Doppler imaging. Normal waveform. Left common femoral artery: No acute findings. No occlusion or significant stenosis on color flow and spectral Doppler imaging. Normal waveform. Left superficial femoral artery: No acute findings. No occlusion or significant stenosis on color flow and spectral Doppler imaging. Normal waveform. Left popliteal artery: No acute findings. No occlusion or significant stenosis on color flow and spectral Doppler imaging. Normal waveform. Left calf/foot arteries: No acute findings. No occlusion or significant stenosis on color flow and spectral Doppler imaging. Normal waveform. Soft tissues: Unremarkable. IMPRESSION: Normal bilateral lower extremity duplex arterial ultrasound. Electronically signed by: Darshan Gagnon MD 10/31/22 23:33 PM Ankle MRI 11/01/22 17:09 Exam(s): MRI RIGHT ANKLE Without Contrast EXAM: MR Right Lower Extremity Without Intravenous Contrast, Ankle CLINICAL HISTORY: Reason for exam: RT MEDIAL HEEL WOUND, R/O OSTEOMYELITIS. TECHNIQUE: Multiplanar magnetic resonance images of the right ankle without intravenous contrast. COMPARISON: No relevant prior studies available. FINDINGS: LIGAMENTS: Anterior talofibular: Unremarkable. Posterior talofibular: Unremarkable. Anterior tibiofibular: Unremarkable. Posterior tibiofibular: Unremarkable. Calcaneofibular: Unremarkable. Deltoid: Unremarkable. Spring: Unremarkable. Lisfranc: Unremarkable. TENDONS: Achilles: Unremarkable. Flexor: Unremarkable. Extensor: Unremarkable. Peroneal: Unremarkable. Tibialis anterior: Unremarkable. Tibialis posterior: Unremarkable. Muscles: Unremarkable. Fluid: Unremarkable. No joint effusion. Sinus tarsi: Unremarkable. Tarsal tunnel: Unremarkable. Plantar fascia: Unremarkable. Cartilage/Bones: Osteochondral lesion within the medial talar dome measuring 8 x 10 mm with subjacent marrow edema. No articular collapse. Remainder of the bones are normal in appearance. No osteomyelitis. No acute fracture. IMPRESSION: 1. Osteochondral lesion within the medial talar dome. Electronically signed by: Adeel Sherwood MD 11/01/22 23:53 PM Pending Results Patient Have Any Pending Studies at Discharge: Yes Discharge Instructions Given to Patient (Per Discharging Provider) PLEASE REFER TO YOUR NEW MEDICATION LIST AND FOLLOW INSTRUCTIONS CAREFULLY. YOUR NEW MEDICATIONS INCLUDE: Doxycycline, Augmentin-antibiotic for infection of the right foot Iron, folic acid, vitamin B12 -supplements for anemia Sodium bicarbonate-for metabolic acidosis (high level of acid in your blood) PLEASE CALL YOUR PRIMARY CARE PHYSICIAN OR RETURN TO THE ER IF WITH WORSENING OF SYMPTOMS, INCLUDING Leg/foot swelling, redness, pain, bleeding or discharge, fevers or chills, Weakness, dizziness, chest pain, shortness of breath, Worsening of rash, etc. FOLLOW UP WITH PRIMARY CARE PHYSICIAN OUTLINED ABOVE. FOLLOW-UP WITH PHOTOSTAT OPERATOR HELPER DR. JOHN SEGURA OUTLINED ABOVE. Total Time Total Time Spent Total Time Spent (In Minutes): >30 minutes
[2022-11-08 05:33] LABS: Albumin 2.5 g/dL (3.8-4.8); Alpha 1 Globulin 0.5 g/dL (0.2-0.3); Alpha 2 Globulin 0.7 g/dL (0.5-0.9); B2 Glycoprotein IgG <2.0 U/mL (<20.0); B2 Glycoprotein IgM 3.4 U/mL (<20.0); Beta-1-Globulin 0.3 g/dL (0.4-0.6); Beta-2-Globulin 0.6 g/dL (0.2-0.5); Complement C3 111 mg/dL (82-185); Complement Total(CH50) >60 U/mL (31-60); Monoclonal Protein Band 2 DNR g/dL (NONE DETECTED); Monoclonal Protein Band 3 DNR g/dL (NONE DETECTED); PTT LA Screen 47 sec (<=40); Total Protein 5.6 g/dL (6.1-8.1)
--- NOTE | 2022-11-08 05:39 | Coding Query ---
PATHOLOGY To promote full compliance with coding requirements relating to patient care, physician participation is requested in all cases of shank turner uncertainty. Please assist us with the question(s) below: Pt admitted with rash,cellulitis. Please review the Pathology report and document any relevant diagnosis(es) below. Thank you. PEDRO Bailon [place] Diagnosis(es): Per pathology report: Skin, right lower extremity, punch biopsy: - Focal spongiosis, focal lymphocytic exocytosis and focal perivascular lymphocytic infiltrate - No leukocytoclastic vasculitis identified Comment: These findings are mild and relatively non-specific. Clinical correlation required. This case was reviewed intra-departmentally with agreement to the above diagnosis. CLAUDIA
[2022-11-08 09:09] LABS: Lupus Hex Phase (Rflxdonotord) Positive (Negative)
[2022-11-09 10:33] LABS: Urea Nitrogen, Random Urine 558 mg/dL
[2022-11-09 16:48] LABS: ANCA Screen Negative (Negative); Anti Cardiolipin Ab IgG <2.0 GPL-U/mL (<20.0); Anti Cardiolipin Ab IgM 4.1 MPL-U/mL (<20.0); Anti-Cardiolipin Ab IgA 2.5 APL-U/mL (<20.0); B2 Glycoprotein IgA <2.0 U/mL (<20.0); B2 Glycoprotein IgG <2.0 U/mL (<20.0); Myeloperoxidase Ab <1.0 AI (<1.0); Phosphatidylser Prothrom IgG <9 U (<=30); Phosphatidylserine ProthromIgM <9 U (<=30); Proteinase-3 AB <1.0 AI (<1.0)
[2022-11-10 18:23] LABS: Anti Nuclear Antibody Screen NEGATIVE (NEGATIVE); Anti-Centromere Ab <1.0 NEG AI (<1.0 NEG); Anti-SS-A <1.0 NEG AI (<1.0 NEG); Anti-SS-B <1.0 NEG AI (<1.0 NEG); Complement C3 92 mg/dL (82-185); DNA ds Crithidia NEGATIVE (NEGATIVE); RNP Antibody <1.0 NEG AI (<1.0 NEG); Scleroderma Anti Scl-70 Ab <1.0 NEG AI (<1.0 NEG); Sm Antibody <1.0 NEG AI (<1.0 NEG)
== END 2022-11-04 10:48 | disposition home or self-care (01) | DRG 545 ==
LOC: ED 13:36 → SUATTDRO 16:37 → 2N 16:37